=== PATIENT | female | born 1970 | race Caucasian/White ===

== ENCOUNTER → 2017-05-12 16:20 | Outpatient (CLI) | payer MEDICAID, SELFPAY ==
[2017-05-12 18:11] LABS: Absolute Lymphocyte Count 3.32 X10^3/ul (0.83-4.51); Absolute Neutrophil Count 2.8 X10^3/uL (2.0-7.7); Basophil# 0.03 X10^3/uL; Basophil% 0.4 % (0-1); Eosinophil# 0.24 X10^3/uL; Eosinophils% 3.5 % (0-5); Hemoglobin 13.5 g/dl (12.0-15.0); Lymphocyte # 3.32 X10^3/ul (4.0); Lymphocyte % 48.3 % (19-41); Mean Corp Hgb Conc 33.8 g/gl (32-36); Mean Corpuscular Hgb 30.1 pg (27.0-32.0); Mean Corpuscular Volume 89.1 fL (81-99); Mean Platelet Vol. 10.2 fl (6.2-12.0); Monocyte# 0.52 X10^3/uL; Monocyte% 7.6 % (0-10); Neutrophil # 2.75 X10^3/uL (2.7-7.7); Neutrophil % 40.1 % (47-70); POSITIVE COUNT NO; POSITIVE DIFFERENTIAL NO; POSITIVE MORPHOLOGY NO; Platelet Count 314 K/mm3 (150-450); RBC Distribution Width CV 12.8 % (11.6-14.6); RBC Distribution Width SD 41.1 fl (35.1-43.9); Red Blood Count 4.49 M/mm3 (4.2-5.4); White Blood Count 6.9 K/mm3 (4.4-11.0)
[2017-05-12 18:28] LABS: Anion Gap 8 (5-15); BUN 13 mg/dL (7-18); BUN/Creat Ratio 16.1 RATIO (10-20); Calcium,Total 9.1 mg/dL (8.5-10.1); Chloride 102 mmol/L (98-107); Creatinine, Serum 0.81 mg/dL (0.55-1.02); EST Glomerular Filtration Rate 81 mL/min (>60); Est Glom Filt Rate - Afr Amer 98 mL/min (>60); Glucose 80 mg/dL (74-106); Potassium 3.9 mmol/L (3.5-5.1); Sodium Level 137 mmol/L (136-145); T4 Free Direct 1.05 ng/dL (0.76-1.46); Thyroid Stim Hormone (TSH) 5.12 uIU/mL (0.358-3.74)
== END ==
PROVIDERS: Family Provider Family Medicine; PCP Family Medicine; Visit Provider Family Medicine
DX: E03.9 Hypothyroidism, unspecified (principal); I10 Essential (primary) hypertension; N39.0 Urinary tract infection, site not specified
CPT/HCPCS: 36415; 80048; 84439; 84443; 85025

== ENCOUNTER → 2017-06-21 14:41 | Outpatient (CLI) | payer MEDICAID, SELFPAY ==
[2017-06-21 17:25] LABS: T4 Free Direct 1.33 ng/dL (0.76-1.46); Thyroid Stim Hormone (TSH) 0.44 uIU/mL (0.358-3.74)
== END ==
PROVIDERS: Family Provider Family Medicine; PCP Family Medicine; Visit Provider Family Medicine
DX: E03.9 Hypothyroidism, unspecified (principal)
CPT/HCPCS: 36415; 84439; 84443

== ENCOUNTER → 2018-05-27 15:22 | Outpatient (CLI) | payer BC, SELFPAY ==
[2018-05-27 17:21] LABS: Absolute Lymphocyte Count 2.65 X10^3/ul (0.83-4.51); Absolute Neutrophil Count 2.7 X10^3/uL (2.0-7.7); Basophil# 0.03 X10^3/uL; Basophil% 0.5 % (0-1); Eosinophil# 0.28 X10^3/uL; Eosinophils% 4.5 % (0-5); Hematocrit 41.7 % (37-47); Hemoglobin 14.1 g/dl (12.0-15.0); Lymphocyte # 2.65 X10^3/ul (4.0); Lymphocyte % 42.9 % (19-41); Mean Corp Hgb Conc 33.8 g/gl (32-36); Mean Corpuscular Hgb 30.3 pg (27.0-32.0); Mean Corpuscular Volume 89.5 fL (81-99); Monocyte# 0.48 X10^3/uL; Monocyte% 7.8 % (0-10); Neutrophil # 2.74 X10^3/uL (2.7-7.7); Neutrophil % 44.3 % (47-70); Platelet Count 340 K/mm3 (150-450); RBC Distribution Width SD 41.7 fl (35.1-43.9); Red Blood Count 4.66 M/mm3 (4.2-5.4); White Blood Count 6.2 K/mm3 (4.4-11.0)
[2018-05-27 17:27] LABS: POSITIVE COUNT NO; POSITIVE DIFFERENTIAL NO; POSITIVE MORPHOLOGY NO
[2018-05-27 17:41] LABS: Vitamin B12 511 pg/mL (211-911); Vitamin D,25 Hydroxy 18.2 ng/mL (29.95-100.01)
[2018-05-27 17:43] LABS: ALB/GLOB Ratio 1.1 RATIO (0.9-2.4); AST(SGOT) 15 U/L (15-37); Alanine Aminotransfer ALT/SGPT 23 U/L (13-56); Albumin, Serum 3.9 g/dL (3.2-5.0); Alkaline Phosphatase 83 U/L (45-117); Anion Gap 7 (5-15); BUN 13 mg/dL (7-18); BUN/Creat Ratio 15.4 RATIO (10-20); Calcium,Total 8.9 mg/dL (8.5-10.1); Chloride 104 mmol/L (98-107); Cholesterol 189 mg/dL (200); Creatinine, Serum 0.84 mg/dL (0.55-1.02); EST Glomerular Filtration Rate 77 mL/min (>60); Est Glom Filt Rate - Afr Amer 93 mL/min (>60); Globulin 3.6 g/dL (2.2-4.2); Glucose 81 mg/dL (74-106); High Density Lipoprotein 60 mg/dL; Potassium 4.1 mmol/L (3.5-5.1); Protein, Total 7.5 g/dL (6.4-8.2); Sodium Level 139 mmol/L (136-145); T4 Free Direct 0.64 ng/dL (0.76-1.46); Triglycerides 128 mg/dL; Very Low Density Lipoprotein 26 mg/dL (5-40)
[2018-06-07 17:23] LABS: Anti-Thyroglobulin AB 2.4 IU/mL (0.0-0.9); Thyroid Peroxidase AB 307 IU/mL (0-34)
[2018-06-07 17:24] LABS: Thyroglobulin RIA 7.8 ng/mL (.)
== END ==
LOC: MFPLAB 15:24
PROVIDERS: Family Provider Family Medicine; PCP Family Medicine; Referring Provider Family Medicine; Visit Provider Family Medicine
DX: R53.83 Other fatigue (principal); E03.9 Hypothyroidism, unspecified; E66.9 Obesity, unspecified
CPT/HCPCS: 36415; 80053; 80061; 82306; 82607; 84432; 84439; 84443; 85025; 86376; 86800

== ENCOUNTER 2018-06-03 20:22 | Emergency (ER) | payer BC, SELFPAY ==
[2018-06-03 20:22] VITALS: BP 169/94; PULSE 79; RESP 16; TEMP 36.7; O2SAT 99; BMI 38.0
--- NOTE | 2018-06-03 21:37 | CT_ITS ---
We are attempting to reach Maury Vargas MD to discuss findings. An addendum with communication details will be sent when the communication is complete. STUDY: CT ABDOMEN AND PELVIS WITHOUT CONTRAST REASON FOR EXAM: Female, 47 years old. Right flank pain RADIATION DOSAGE (If Supplied By Facility): CTDIvol = ( 22.57 ) mGy, DLP = ( 1031.81 ) mGycm TECHNIQUE: Transaxial images were obtained from the dome of the diaphragm to the symphysis pubis without oral contrast, and without intravenous contrast. Sagittal and coronal images were reconstructed. Individualized dose optimization techniques were used for this CT. COMPARISON: None. FINDINGS: The visualized lung bases are unremarkable. The visualized portions of the heart are within normal limits. 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 Normal liver. There are surgical clips in the gallbladder fossa consistent with a prior cholecystectomy. Normal spleen. Normal pancreas. Normal bilateral adrenal glands. Normal right kidney. Normal left kidney. Normal visualized stomach. Normal small intestine. There is moderate stool in the colon. There is a mildly thick-walled appearance of the tip of the appendix with calcification measuring up to 7 mm There is partial calcification of the aorta. Normal inferior vena cava. Normal retroperitoneum. Normal urinary bladder. The uterus is retroflexed. There is a small umbilical hernia containing fat. There is grade 1 almost grade 2 anterolisthesis at the level of L5-S1. There is a anterolisthesis of at least 1 cm of L5 anterior to L1. There is moderate to severe neural foraminal narrowing at the level of L5-S1. There is mild central stenosis. At L4-L5 there is a broad disc bulge. CT/Abdomen/Pelvis without Cont IMPRESSION: Constipation. Upper limits of normal width of the appendix up to 7 mm with appendicoliths without minimal wall thickening. Recommend correlation with laboratory values and clinical exam. Potentially early appendicitis could have this appearance Normal size retroflexed uterus Grade 1 nearly grade 2 anterolisthesis at L5-S1 for which a follow-up is warranted. Electronically Signed: Gwen Granado MD at 23:36 EDT Tel , Service support ,
[2018-06-03] MEDS: Ondansetron 4 MG/2 ML Vial IV (22:14)
[2018-06-03 22:21] LABS: Absolute Lymphocyte Count 2.56 X10^3/ul (0.83-4.51); Absolute Neutrophil Count 3.3 X10^3/uL (2.0-7.7); Basophil# 0.03 X10^3/uL; Basophil% 0.4 % (0-1); Eosinophil# 0.21 X10^3/uL; Eosinophils% 3.1 % (0-5); Hematocrit 40.9 % (37-47); Lymphocyte # 2.56 X10^3/ul (4.0); Lymphocyte % 38.3 % (19-41); Mean Corp Hgb Conc 34.2 g/gl (32-36); Mean Corpuscular Volume 87.6 fL (81-99); Mean Platelet Vol. 9.7 fl (6.2-12.0); Monocyte# 0.56 X10^3/uL; Monocyte% 8.4 % (0-10); Neutrophil # 3.32 X10^3/uL (2.7-7.7); Neutrophil % 49.7 % (47-70); Platelet Count 317 K/mm3 (150-450); RBC Distribution Width CV 12.7 % (11.6-14.6); RBC Distribution Width SD 39.6 fl (35.1-43.9); Red Blood Count 4.67 M/mm3 (4.2-5.4); White Blood Count 6.7 K/mm3 (4.4-11.0)
[2018-06-03 22:23] LABS: Bacteria 0 SEEN /hpf (None Seen); Mucous, Urine 0 SEEN /hpf (<or=2+); Red Blood Cells-Urine 0 SEEN /hpf (0-5); Squamous Epithelial Cells - UA 0 SEEN /hpf (5-10); White Blood Cells 0 SEEN /hpf (0-5)
[2018-06-03 22:23] LABS: POSITIVE COUNT NO; POSITIVE DIFFERENTIAL NO; POSITIVE MORPHOLOGY NO
[2018-06-03 22:30] LABS: Color, Urine Yellow (Yellow); Glucose, Dipstick Normal (Normal); Ketone-Dipstick Negative (Negative); Leukocyte Esterase-Dipstick Negative /ul (Negative); Nitrite-Dipstick Negative (Negative); Occult Blood-Urine Negative /ul (Negative); Protein-Dipstick Negative (Negative); Specific Gravity, Urine 1.015 (1.002-1.030); Urine Bilirubin Dipstick Negative (Negative); Urine Clarity Clear (Clear); Urine Urobilinogen Normal (Normal)
[2018-06-03 22:36] LABS: Anion Gap 7 (5-15); BUN 10 mg/dL (7-18); Calcium,Total 8.6 mg/dL (8.5-10.1); Chloride 107 mmol/L (98-107); Creatinine, Serum 0.83 mg/dL (0.55-1.02); EST Glomerular Filtration Rate 78 mL/min (>60); Est Glom Filt Rate - Afr Amer 94 mL/min (>60); Estimated Creatinine Clearance 69.31 ml/min; Glucose 87 mg/dL (74-106); Sodium Level 141 mmol/L (136-145)
--- NOTE | 2018-06-03 22:41 | RAD_ITS ---
STUDY: X-RAY CHEST REASON FOR EXAM: Female, 47 years old. Pain posterior lower rib pain for 3 days TECHNIQUE: PA and lateral views of the chest. COMPARISON: Lung bases June 03, 2018 10:35 PM Chest x-ray January 18, 2015 FINDINGS: Again noted is a eventration or fatty herniation of the right diaphragm. There is no visualized focal consolidation or pleural effusion or visualized rib fracture. There is no demonstrated pleural abnormality. Normal size heart. Normal mediastinum and korina. Normal visualized pulmonary arteries. Normal visualized aortic arch and descending thoracic aorta. Normal visualized thoracic spine. Normal visualized ribs, clavicles, and shoulders. There are surgical clips in the right upper quadrant status post cholecystectomy. RAD/Chest PA and Lateral IMPRESSION: No demonstrated acute cardiopulmonary process. Electronically Signed: Gwen Granado MD at 22:55 EDT Tel , Service support ,
[2018-06-03 23:47] VITALS: BP 128/73; PULSE 74; RESP 19; O2SAT 99
--- NOTE | 2018-06-04 00:19 | ED.VISSUMM ---
- ER Visit Summary Date of Service: 06/04/18 Chief Complaint: Upper flank and mid back pain. History of Present Illness: The patient is a 47 F history of hypothyroidism and prior cholecystectomy. Patient states she had 3 days of right flank pain that began on Wednesday. Around the right mid back and CVA area. She is noticed some nausea associated with today mild diarrhea. No fever. No dysuria. No abdominal pain. Last menstrual period was a week ago and normal. Denies any falls or trauma. No fever. No shortness of breath. Mild nonproductive cough. Physical Examination: Middle-aged female no acute distress vital signs are stable afebrile. Pulse ox 9% on room air cells are positive. H EENT exam unremarkable. Neck nontender no lymphadenopathy. Lungs clear to auscultation bilaterally. Heart regular rhythm no murmur. Chest wall nontender. Abdomen is soft and nontender. Normal bowel sounds no peritoneal signs. Right upper quadrant completely non-tender as is the right lower quadrant. Normal bowel sounds. Patient is moving all 4 extremities. Neurovascularly intact. Negative straight leg raise bilaterally. The spine of the back is nontender she has mild reproducible right posterior rib cage tenderness. There is no ecchymosis or bruising. No redness or warmth. No signs of trauma nor bony crepitance. Neurologically she is awake alert with no focal motor deficits. Test Results: BC normal white count of 6. Electrolytes normal normal creatinine gap. UA normal. No signs of blood or infection. Chest x-ray showed no acute abnormality. There is no signs of any bony fracture pneumonia. CT abdomen and pelvis done without contrast as a CT flank study showed no acute abnormality. It was increased stool consistent with constipation. The radiologist called to talk to me and said that the appendix was the upper limits of normal but it was not significantly abnormal there is no signs of acute appendicitis I explained her there is absolutely no abdominal pain and no tenderness in that region she felt was more likely just a normal variant. Emergency Department Course and Treatment: Patient was treated with IV Zofran which helped her nausea symptoms. Repeat abdominal exam at 00 15 a.m. her abdomen is completely nontender. Both the right upper right lower quadrant completely normal deep palpation in the right lower quadrant there is no pain whatsoever. I went over all test results with the patient seen and I discussed her CAT scan results. Treatment Plan: Motrin for pain. Ice to her back. Disposition: Discharge Impression: Right flank pain secondary to muscular skeletal etiology. Appendix upper limits of normal on CAT scan clinically not felt to be appendicitis This note was generated with [employer] dictation software. It may contain incorrect words, spelling, and punctuation that were not noted in review of the chart prior to signing ED Disposition - Plan for ED Patient: Referrals: Bao Ruiz MD [Primary Care Provider] -
--- NOTE | 2018-06-04 00:23 | ED.DEP ---
ED Disposition - Plan for ED Patient: Disposition: Home or Assisted Living Instructions: ED Flank Pain Uncertain Cause Referrals: Bao Ruiz MD [Primary Care Provider] - 3-5 Days if not improving Additional Instructions: This appears to be musculoskeletal back pain. All your labs were normal including your urinalysis. Follow with your doctor if not improving. Ice to your right lower back rib cage area. Motrin for pain and inflammation. Return if feeling worse otherwise follow-up with your doctor if not improving.
[2018-06-04 00:31] VITALS: BP 148/83; PULSE 68; RESP 16; O2SAT 98
[2018-06-04] MEDS: Ondansetron ODT 4 MG Tablet PO (00:31)
== END 2018-06-04 00:35 | disposition home or self-care (01) ==
PROVIDERS: Emergency Provider Emergency Medicine; Family Provider Family Medicine; PCP Family Medicine
DX: R10.11 Right upper quadrant pain (principal); R11.0 Nausea; E03.9 Hypothyroidism, unspecified; Z90.49 Acquired absence of other specified parts of digestive tract
CPT/HCPCS: 71046; 74176; 80048; 81001; 85025; 96374; 99284; A4216; J2405

== ENCOUNTER → 2018-06-06 08:41 | Outpatient (CLI) | payer BC, SELFPAY ==
[2018-06-03 20:22] VITALS: BMI 38.0
--- NOTE | 2018-06-06 08:45 | US_ITS ---
STUDY: THYROID ULTRASOUND REASON FOR EXAM: Female, 47 years old. Thyromegaly TECHNIQUE: Ultrasound evaluation of the thyroid was performed with real-time and static yarbrough-scale imaging. COMPARISON: None. FINDINGS: RIGHT LOBE: The right lobe of the thyroid gland measures 6.9 x 3 x 3 cm. There is a heterogeneous echotexture. Multiple nodules are noted throughout the right thyroid lobe. Predominantly solid in appearance, largest is in the upper lobe measuring 1.3 x 1.6 x 1.3 cm. LEFT LOBE: The left lobe of the thyroid gland measures 3.3 x 1.4 x 1.6 cm. There is a heterogeneous echotexture. Solid nodules are noted. The largest of which is in the mid to lower pole measuring 1.9 x 1.1 x 1.3 cm. ISTHMUS: The isthmus measures 6 mm. The regional lymph nodes are normal. US/Thyroid IMPRESSION: Marked enlargement of the right thyroid lobe as compared to the left. Multiple right-sided thyroid lobe nodules. 2 smaller left-sided thyroid lobe nodules. Diffusely heterogeneous echotexture bilaterally. Electronically Signed: Nestor Epstein DO at 11:03 EDT Tel , Service support ,
== END ==
PROVIDERS: Family Provider Family Medicine; PCP Family Medicine; Referring Provider Family Medicine; Visit Provider Family Medicine
DX: E01.0 Iodine-deficiency related diffuse (endemic) goiter (principal)
CPT/HCPCS: 76536

== ENCOUNTER → 2018-06-25 08:44 | Outpatient (CLI) | payer BC, SELFPAY ==
--- NOTE | 2018-06-25 08:00 | ASPS_PTH ---
PATIENT: BRENNAN MONTEJO LOC: [facility] U#:[id number] AGE/SX: 54/F ROOM: RE06/25/[address]: Dr. Jose Sharpe MD : 1970 BED: DIS: SPEC #: [id number] RECD: 06/25/18 11:41 STATUS: ZOIE LIZY #: [id number] KANDIS: 06/25/18 08:[address]: Jose Sharpe DEPT: CYTOLOGY RECD BY: Too Coto ENTERED: 06/27/18 10:14 SP TYPE: ASPIRATION OTHR DR: Dr. Bao Ruiz MD Tissues: A - Thyroid gland, NOS B - Thyroid gland, NOS Procedures: Special Stain Group II Cytology Other HEADER OPERATION: Ultrasound guided fine needle aspiration of bilateral thyroid nodule PRE-OP DIAGNOSIS: Multinodular goiter (nontoxic) E04.2 TISSUE SUBMITTED: A. Left thyroid nodule, B. Right thyroid nodule DIAGNOSIS CYTOLOGY A. Left thyroid nodule, fine needle aspiration, direct smears: Negative for malignant cells. Consistent with lymphocytic thyroiditis. See cytology study. B. Right thyroid nodule, fine needle aspiration, direct smears: Negative for malignant cells. Consistent with lymphocytic thyroiditis. See cytology study. CE:de 06/28/18 COMMENT Immediate cytologic evaluation to determine adequacy is not applicable. Case has been reviewed in consultation with Dr. Keyes who concurs with the above diagnosis. IDC:AM CYTOLOGY STUDY A and B. Direct smears demonstrate multiple groups of follicular cells in a background of colloid and blood. The follicular cells contain abundant cytoplasm and round nuclei. No nuclear atypia is found. Additionally, a few groups of H?rthle cells and numerous inflammatory cells are present in the background. The findings described are consistent with lymphocytic thyroiditis. Also noted on the direct smears are multiple delicate blood vessels. These are lined by elongated endothelial cells without atypia. CYTOLOGY GROSS A. Received are 12 smears labeled with the patient's name and designated per the requisition as left thyroid. Submitted for staining. B. Received are 12 smears labeled with the patient's name and designated per the requisition as right thyroid. Submitted for staining. / CC:cc 06/27/18 TC:3 CPT: 95047 x2
[2018-06-25 08:04] VITALS: BMI 38.9
== END ==
PROVIDERS: Family Provider Family Medicine; PCP Family Medicine; Visit Provider Surgery
DX: E04.2 Nontoxic multinodular goiter (principal)
CPT/HCPCS: 88161; 88313

== ENCOUNTER → 2018-12-22 12:20 | Outpatient (CLI) | payer BC, SELFPAY ==
[2018-06-25 08:04] VITALS: BMI 38.9
[2018-12-22 14:46] LABS: T4 Free Direct 0.88 ng/dL (0.76-1.46)
[2018-12-22 14:49] LABS: Vitamin D,25 Hydroxy 46.9 ng/mL (29.95-100.01)
== END ==
PROVIDERS: Family Provider Family Medicine; PCP Family Medicine; Referring Provider Family Medicine; Visit Provider Family Medicine
DX: E03.8 Other specified hypothyroidism (principal); E55.9 Vitamin D deficiency, unspecified
CPT/HCPCS: 36415; 82306; 84439; 84443

== ENCOUNTER → 2019-04-11 08:48 | Outpatient (CLI) | payer BC, SELFPAY ==
[2019-03-20 07:40] VITALS: BMI 38.9
[2019-04-11 10:42] LABS: Vitamin D,25 Hydroxy 46.4 ng/mL
== END ==
LOC: MFPLAB 08:51
PROVIDERS: PCP Family Medicine; Referring Provider Family Medicine; Visit Provider Family Medicine
DX: E03.8 Other specified hypothyroidism (principal); E55.9 Vitamin D deficiency, unspecified
CPT/HCPCS: 36415; 82306; 84439; 84443

== ENCOUNTER → 2019-07-10 07:42 | Outpatient (CLI) | payer BC, SELFPAY ==
[2019-03-20 07:40] VITALS: BMI 38.9
--- NOTE | 2019-07-10 08:01 | US_ITS ---
STUDY: THYROID ULTRASOUND REASON FOR EXAM: Female, 48 years old. NODULES -- ON THYROID MEDS TECHNIQUE: Ultrasound evaluation of the thyroid was performed with real-time and static yarbrough-scale imaging. COMPARISON: Comparison is made with prior examination dated June 06, 2018. FINDINGS: RIGHT LOBE: The right lobe of the thyroid gland is enlarged and measures 6.8 cm x 3 cm x 2.9 cm. There is a heterogeneous echotexture. Once again, multiple nodules are seen. The largest measures 1.3 cm x 1.6 cm x 1.2 cm. This is in the upper lobe and is solid in nature. This is unchanged. LEFT LOBE: The left lobe of the thyroid gland measures 3.4 cm x 1.3 cm x 1.4 cm. There is a heterogeneous echotexture. 2 nodules are seen. The larger measures 1.7 cm x 0.8 cm x 0.9 cm cyst. This lies in the mid to lower pole of the lobe. This is a solid nodule. ISTHMUS: The isthmus is enlarged and measures 6 mm. The regional lymph nodes are normal. US/Thyroid IMPRESSION: Enlarged isthmus and right lobe of the thyroid with heterogeneous echotexture. Bilateral thyroid nodules. Essentially unchanged. Electronically Signed: Dariusz Guerrero, at 15:18 EDT , Service support ,
== END ==
PROVIDERS: PCP Family Medicine; Referring Provider Family Medicine; Visit Provider Family Medicine
DX: E04.2 Nontoxic multinodular goiter (principal)
CPT/HCPCS: 76536

== ENCOUNTER 2019-07-16 02:16 | Emergency (ER) | payer BC, SELFPAY ==
[2019-03-20 07:40] VITALS: BMI 38.9
[2019-07-16 02:17] VITALS: BP 146/92; PULSE 84; RESP 18; TEMP 36.8; O2SAT 97; BMI 38.9
--- NOTE | 2019-07-16 02:54 | RAD_ITS ---
STUDY: X-RAY - LEFT ELBOW REASON FOR EXAM: Female, 48 years old. TRIED TO LIFT A RAILROAD TIE YESTERDAY -- FELT SOMETHING TEAR AREA OF ANTERIOR PROXIMAL LT FOREARM -- C/O SEVERE PAIN IN LT ELBOW TECHNIQUE: 3 view(s) of the elbow. COMPARISON: None. FINDINGS: Normal visualized humerus, radius and ulna. Small enthesophyte along the lateral femoral condyle. Normal radiocapitellar and ulnotrochlear articulations. The soft tissue structures are unremarkable. RAD/Elbow min 3 Views IMPRESSION: Minimal degenerative changes along the lateral humeral condyle can be seen with epicondylitis. There is no acute displaced fracture or dislocation. Electronically Signed: Gloria Mathew MD at 3:44 EDT , Service support ,
--- NOTE | 2019-07-16 02:58 | ED.VIS.UPPEX ---
History of Present Illness Chief Complaint: Upper Extremity Injury Informant: Patient Occurred: Yesterday Mechanism/Context: Injury - lifting Context: Sudden Onset Timing: Continuous Quality of Pain: Aching - felt like tearing in muscle in left forearm Location: left volar proximal forearm Current Severity: Moderate Maximum Severity: Severe Worsened by: movements, especially pronation Relieved by: remaining still Associated Symptoms: Parasthesia - fingers 2-4. Negative for: Weakness, Loss of Funtion Narrative: Patient states she was mowing the yard, she stopped to move the railroad tie that was in the way, and felt tearing all of a sudden in her left forearm. She has had pain ever since. She is left-hand dominant. She works in a factory. - Past Medical History (1) Depression with anxiety Status: Chronic (2) Hypothyroidism Status: Chronic Past Medical History - Allergies and Home Meds Allergies/Adverse Reactions: Allergies escitalopram [From Lexapro] Allergy (Intermediate, Verified 03/20/19 07:30) twitching/nervous feeling Primary Care Physician: Bao Ruiz MD [Primary Care Provider] - Surgical History: cholecystectomy, tonsillectomy Smoking Status: Never smoker - Family History Maternal Family History: Family History (Last Reviewed 07/01/18 @ 07:34 by Eli Yates) Grandmother Cancer Heart disease Thyroid disorder Grandfather Cancer Mother Heart disease Thyroid disorder Family History: Reports: Heart Disease Review of Systems Musculoskeletal: Reports: Extremity Pain. Denies: Neck pain, Back pain, Swelling Skin: Denies: Rash, Wounds Neurological: Reports: Parasthesia. Denies: Headache, Weakness Physical Exam Vital Signs/Narrative: Vital Signs Temp Pulse Resp BP Pulse Ox 07/16/19 02:17 98.3 F 84 18 146/92 H 97 General: Well nourished, Well developed, - - nad Head: Normocephalic, Atraumatic Extremeties: Full range of motion of the left elbow, wrist including pronation and supination although she has pain with multiple maneuvers especially stretching the volar flexor muscle compartment by extending at the wrist. All compartments are soft and nondistended. There are no obvious deformities. Tenderness just distal to the medial epicondyles as well as the antecubital fossa. Skin: Normal color, No rash, No Trauma Neurological: Alert, Oriented x3, Cranial nerves II-XII grossly intact, Normal Strength - Including left median, radial, ulnar nerve distributions, Parasthesia - Mild, fingertips left 2-4 only Psychological: Normal affect, Normal Mood Diagnostic/Tx/Re-eval Clinical Impression(s) from Imaging Studies Elbow X-Ray 07/16/19 02:54 IMPRESSION: Minimal degenerative changes along the lateral humeral condyle can be seen with epicondylitis. There is no acute displaced fracture or dislocation. Electronically Signed: Gloria Mathew MD at 3:44 EDT , Service support , - Medical Decision Making X-ray findings as above, nothing acute. Patient felt that she would feel much better and splint than a sling. Given that the suspicion is for a tear in the volar forearm musculature, we initially try just an ulnar gutter because supination/pronation is the most painful movement for her. This resulted in acceptable immobilization and it helped her feel better, and was not too much weight so she did not feel she needed a sling. She was given Ultram and naproxen, and referred to orthopedics for further evaluation. She is comfortable with that plan. She was given a work note for Wednesday. Procedures - Upper Extremity Splints Upper Extremity Splint: Orthoglass, Ulnar gutter Splint Fabrication: Fabricated - Neurovascularly intact distally after placement. Tolerated well. Location: Left ED Disposition - Plan for ED Patient: Disposition: Home or Assisted Living Diagnosis: Injury of muscle or tendon of left forearm Instructions: ED Strain Muscle Ext Prescriptions: traMADol [Ultram] 50 mg PO Q4H PRN PRN 3 Days #12 tab PRN Reason: Pain Prescription Printed Referrals: Bao Ruiz MD [Primary Care Provider] - Yandy Gonsalves DO [STAFF PHYSICIAN] - As soon as possible (call for appt)
[2019-07-16] MEDS: Naproxen 250 MG Tablet 500 MG PO (03:24)
[2019-07-16] MEDS: traMADol 50 MG Tablet PO (03:24)
[2019-07-16 04:00] VITALS: PULSE 65; RESP 18; O2SAT 97
== END 2019-07-16 04:04 | disposition home or self-care (01) ==
LOC: ED 03:54
PROVIDERS: Emergency Provider Emergency Medicine; PCP Family Medicine
DX: S56.912A Strain of unspecified muscles, fascia and tendons at forearm level, left arm, initial encounter (principal); M77.12 Lateral epicondylitis, left elbow; X50.0XXA Overexertion from strenuous movement or load, initial encounter; Y93.9 Activity, unspecified; Y92.9 Unspecified place or not applicable; F41.8 Other specified anxiety disorders; E03.9 Hypothyroidism, unspecified; Z79.899 Other long term (current) drug therapy
CPT/HCPCS: 29125; 73080; 99283

== ENCOUNTER → 2019-07-27 08:43 | Outpatient (CLI) | payer BC, SELFPAY ==
[2019-07-27 08:27] VITALS: BMI 38.9
--- NOTE | 2019-07-27 08:43 | RAD_ITS ---
STUDY: X-RAY - LEFT RADIUS AND ULNA REASON FOR EXAM: Female, 48 years old. STRAIN TO ARM. PAIN PROXIMAL FOREARM TECHNIQUE: 2 view(s) of the forearm. COMPARISON: None. FINDINGS: There is no demonstrated soft tissue swelling. Normal visualized radius. Normal visualized ulna. There is no demonstrated acute fracture. RAD/Forearm 2 Views IMPRESSION: Normal x-ray examination of the radius and ulna. Electronically Signed: Hema Perez MD at 17:30 EDT , Service support ,
== END ==
PROVIDERS: PCP Family Medicine; Referring Provider Physician Assistant; Visit Provider Physician Assistant
DX: M79.632 Pain in left forearm (principal)
CPT/HCPCS: 73090

== ENCOUNTER → 2019-07-29 07:04 | Outpatient (CLI) | payer BC, SELFPAY ==
[2019-07-27 08:27] VITALS: BMI 38.9
--- NOTE | 2019-07-29 07:05 | MRI_ITS ---
STUDY: MRI LEFT ELBOW REASON FOR EXAM: Female, 48 years old. left elbow , distal biceps tear; pain after lifting heavy object 2 wks ago, and felt tear TECHNIQUE: Standardized fat and water weighted pulse sequences were obtained in all 3 orthogonal planes. COMPARISON: X-ray July 16, 2019 FINDINGS: Normal radio-capitellum articulation. Normal radial collateral ligamentous complex. There is a tendinosis of the common extensor tendon origin with a partial deep surface tear, series 6 image 01/29. Normal ulnotrochlear articulation. Normal ulnar collateral ligamentous complex. Normal common flexor tendon. Small joint effusion. The cubital tunnel is normal, with a normal ulnar nerve. There is tendinosis with a complete tear of distal insertion of the biceps tendon with retraction of 1.1 cm, series 6 images 15 and 16. Normal lacertus fibrosis. Normal brachialis musculotendinous insertion. Normal triceps tendon and teno-osseous insertion. Normal olecranon process. The visualized distal humerus, proximal radius, and ulna are normal. The visualized muscles of the distal arm and proximal forearm are normal. The soft tissue structures are unremarkable. MRI/Upper Ext Joint Only(Routine) IMPRESSION: Biceps tendon rupture and tear. Tendinosis with partial tear of the common extensor tendon. Joint effusion. Electronically Signed: Pietro Stevens MD at 15:39 EDT , Service support ,
== END ==
LOC: MRI 07:05
PROVIDERS: PCP Family Medicine; Referring Provider Physician Assistant; Visit Provider Physician Assistant
DX: S46.219A Strain of muscle, fascia and tendon of other parts of biceps, unspecified arm, initial encounter (principal)
CPT/HCPCS: 73221

== ENCOUNTER → 2019-10-19 08:10 | Outpatient (CLI) | payer BC, SELFPAY ==
[2019-07-27 08:27] VITALS: BMI 38.9
[2019-10-19 10:09] LABS: Vitamin D,25 Hydroxy 37.2 ng/mL
== END ==
PROVIDERS: PCP Family Medicine; Referring Provider Family Medicine; Visit Provider Family Medicine
DX: E55.9 Vitamin D deficiency, unspecified (principal); E03.8 Other specified hypothyroidism
CPT/HCPCS: 36415; 82306; 84439; 84443

== ENCOUNTER → 2020-01-09 08:08 | Outpatient (CLI) | payer BC, SELFPAY ==
[2019-07-27 08:27] VITALS: BMI 38.9
[2020-01-09 10:21] LABS: T4 Free Direct 1.11 ng/dL (0.76-1.46); Thyroid Stim Hormone (TSH) 4.93 uIU/mL (0.358-3.74)
== END ==
PROVIDERS: PCP Family Medicine; Visit Provider Family Medicine
DX: E03.8 Other specified hypothyroidism (principal)
CPT/HCPCS: 36415; 84439; 84443

== ENCOUNTER → 2020-03-01 11:23 | Outpatient (CLI) | payer BC, SELFPAY ==
[2019-07-27 08:27] VITALS: BMI 38.9
--- NOTE | 2020-03-01 11:25 | RAD_ITS ---
STUDY: X-RAY - LEFT HAND REASON FOR EXAM: Female, 49 years old. Left hand pain, from wrist up into the thumb x 2 months -- no injury TECHNIQUE: 3 view(s) of the hand. COMPARISON: None. FINDINGS: Normal radiocarpal articulation. Normal distal radioulnar joint. Normal visualized carpal bones. Normal carpal articulations Normal carpometacarpal articulation of the thumb. Normal second through fifth carpometacarpal joints. Normal metacarpi. Normal metacarpophalangeal joint of the thumb. Normal interphalangeal joint of the thumb. Normal proximal and distal phalanges of the thumb. Normal metacarpophalangeal joints of the second through fifth fingers. Normal proximal and distal interphalangeal joints of the second through fifth fingers. Normal phalanges of the second through fifth fingers. The soft tissue structures are unremarkable. RAD/Hand Min 3 Views IMPRESSION: Normal x-ray examination of the hand. Electronically Signed: Dariusz Guerrero MD at 12:32 EST , Service support ,
== END ==
LOC: MTRAD 11:24
PROVIDERS: PCP Family Medicine; Referring Provider Family Medicine; Visit Provider Family Medicine
DX: M79.645 Pain in left finger(s) (principal)
CPT/HCPCS: 73130

== ENCOUNTER → 2020-07-11 11:41 | Outpatient (CLI) | payer BC, SELFPAY ==
[2019-07-27 08:27] VITALS: BMI 38.9
[2020-07-11 15:18] LABS: Vitamin D,25 Hydroxy 53.7 ng/mL
[2020-07-11 15:26] LABS: ALB/GLOB Ratio 0.9 RATIO (0.9-2.4); AST(SGOT) 17 U/L (15-37); Alanine Aminotransfer ALT/SGPT 31 U/L (13-56); Albumin, Serum 3.8 g/dL (3.2-5.0); Alkaline Phosphatase 103 U/L (45-117); Anion Gap 7 (5-15); BUN 15 mg/dL (7-18); BUN/Creat Ratio 20.2 RATIO (10-20); Chloride 103 mmol/L (98-107); Creatinine, Serum 0.74 mg/dL (0.55-1.02); EST Glomerular Filtration Rate 88 mL/min (>60); Est Glom Filt Rate - Afr Amer 107 mL/min (>60); Globulin 4.4 g/dL (2.2-4.2); Glucose 76 mg/dL (74-106); Potassium 3.9 mmol/L (3.5-5.1); Protein, Total 8.2 g/dL (6.4-8.2); Sodium Level 136 mmol/L (136-145)
== END ==
LOC: MFPLAB 11:42
PROVIDERS: PCP Family Medicine; Referring Provider Family Medicine; Visit Provider Family Medicine
DX: E55.9 Vitamin D deficiency, unspecified (principal)
CPT/HCPCS: 36415; 80053; 82306

== ENCOUNTER 2021-04-28 12:09 | Emergency (ER) | payer BC, SELFPAY ==
[2021-04-28 12:10] VITALS: BP 150/82; PULSE 80; RESP 16; TEMP 36.6; O2SAT 96; BMI 37.0
--- NOTE | 2021-04-28 13:19 | VDLE_ITS ---
Reason For Study: Pain Procedure LEFT This is a venous duplex using B-mode, color GSV is normal. flow and spectral Doppler. CFV is compressible, spontaneous, phasic, Exam performed portable in ED. competent, and demonstrates normal A preliminary report was called and/or faxed augmentation. to Dr. Mendoza. FV is compressible, spontaneous, phasic, competent and demonstrates normal augmentation. POP V is compressible, spontaneous, phasic, competent and demonstrates normal augmentation. T/P Trunk is compressible. PTV is compressible. LT PerV is compressible. VL/Venous Duplex US, Unilateral Interpretation Summary Deep veins of the left lower extremity are patent and compressible segmentally. There is no evidence of left lower extremity deep vein thrombosis. Valvular competence appears intac t within the proximal deep venous system on the left . The left great saphenous vein appears patent a nd compressible segmentally. Ordering Physician: Mir Mendoza Performed By: Kim Turner, RDCS, RVT
--- NOTE | 2021-04-28 13:20 | ED.VIS.LOWEX ---
HPI History of Present Illness Chief Complaint: Lower Extremity Injury Detail of Chief Complaint: Pain left popliteal fossa now red streak medial left thigh Informant: patient Occured/Mechanism Comment: Atraumatic Onset/Context/Timing Onset: Yesterday (Pain started yesterday, red streak noted this morning) Context: Sudden Onset Timing: Continuous Quality of Pain: Aching Location: Popliteal fossa Current Severity: Mild Maximum Severity: Moderate Worsened by: Walking and palpation Relieved by: Nothing Associated Symptoms Associated Symptoms: Negative for Parasthesia, Weakness and Loss of Funtion Narrative Narrative: Patient is a 50-year-old woman who presents with atraumatic left leg pain. She initially had pain in the popliteal fossa. This morning she noted a red streak medial left thigh. She complained of chills 2 days ago. She denies fever. There is no history of trauma. There is no history of PE or DVT. There is no history of immobilization, recent surgery or active cancer. She denies paresthesia, anesthesia motors. She denies symptoms of claudication. She denies history of prior knee injury or Claire's cyst. Tetanus Immunization: 5-10 years Prior similar symptoms: No Recent Illness/Hospitalization: No PFSH PFS Medical History Depression with anxiety Hx of migraines Hypothyroidism Lymphocytic thyroiditis (~06/25/18) Multinodular goiter Obesity Thyromegaly Vitamin D deficiency Home Medications sertraline 50 mg PO DAILY 06/03/18 [History Last Taken Unknown] multivitamin 1 cap PO DAILY 06/13/18 [History Last Taken Unknown] cephalexin 500 mg PO Q6 #28 capsule 04/28/21 [Rx Last Taken Unknown] thyroid (pork) [[place] Thyroid] 180 mg PO DAILY 04/28/21 [History Last Taken Unknown] Allergy/AdvReac Type Severity Reaction Status Date / Time escitalopram [From Lexapro] Allergy Intermediate twitching/nervous Verified 04/28/21 12:12 feeling propranolol AdvReac Nausea Verified 04/28/21 12:12 Family History Grandmother Cancer Throat cancer Heart disease Thyroid disorder Grandfather Cancer Lung cancer Mother Heart disease Thyroid disorder Myocardial infarction Surgical History History of laparoscopic cholecystectomy History of tonsillectomy History of tubal ligation history ORIF right ankle S/P fine needle aspiration (~06/25/18) Social History (Updated 07/27/19 @ 12:38 by Vijay GIMENEZ, AMMY) Smoking Status: Never smoker alcohol intake: current alcohol intake frequency: a few times a month substance use type: does not use ROS ROS ED Constitutional Constitutional ED: Reports chills; Denies fever(s), subjective, sweats or weight loss Cardiovascular Cardiovascular: Denies chest pain, palpitations or racing heartbeat Respiratory/Chest Respiratory/Chest: Denies cough, dyspnea or dyspnea on exertion Gastrointestinal Gastrointestinal: Denies diarrhea, nausea or vomiting Musculoskeletal Musculoskeletal: Denies arthralgias, back pain, myalgias or neck pain Integumentary Reports rash; Denies abscess or Abrasions Neurologic Neurologic: Denies paresthesias or weakness Hematologic/Lymphatic Hematologic/Lymphatic: Denies easy bleeding or easy bruising EXAM Physical Exam Const Vital Signs: 04/28/21 12:10 Temperature 97.9 F Temperature Source Temporal Pulse Rate 80 Respiratory Rate 16 Blood Pressure 150/82 H Blood Pressure Mean 104 Pulse Ox 96 Oxygen Delivery Method Room Air Positive well nourished, well developed and obese General Appearance ED: well developed and NAD Nutritional Appearance: obese HEENT normocephalic and atraumatic Eyes PERRL Eyes Narrative: Extract muscle intact. Sclerae anicteric. Neck full ROM Resp normal respiratory effort and clear to auscultation bilaterally Cardio regular rate, regular rhythm, S1 normal heart sound, S2 normal heart sound and no murmurs GI non-tender and non-distended Auscultation: normoactive bowel sounds Palpation: soft Extremity full ROM; Negative for normal to inspection Extremity Narrative: There is pain to palpation popliteal fossa and question of a palpable cord. There is redness noted medial aspect of the left thigh. There is no tenderness over the redness. There is no inguinal lymphadenopathy. There is no evidence of cellulitis or trauma. DP and PT pulse are 2+ and symmetric. General Extremety ED: Negative for cyanosis, edema or weight-bearing difficulty General Extremity: Negative for cyanosis, edema or weight-bearing difficulty Psych mental status grossly normal Skin no wounds Lesions: no lesions Rashes: No no rashes Trauma: Negative for abrasion MDM MDM MDM Narrative Medical decision making narrative: This may represent a Claire's cyst versus DVT versus superficial phlebitis. Venous duplex study was obtained. No evidence of DVT or superficial thrombophlebitis. With patient complaining of chills and having a lymphangitic streak most likely will treat with cephalexin since she has no allergies to penicillin or cephalosporin. Treatment and Re-Evaluation Narrative: There is no evidence of DVT, superficial thrombophlebitis or Claire's cyst. Discharge Plan Triage Chief Complaint: Lower Extremity Injury ED Provider: Mir Mendoza Dx/Rx/DC Orders Clinical Impression: Lymphangitis of lower extremity Instructions: ED Lymphangitis Prescriptions: New cephalexin [cephalexin] 500 MG capsule 500 mg PO Q6 Qty: 28 RF: 0 No Action multivitamin capsule capsule 1 cap PO DAILY RF: 0 sertraline 25 MG tablet 50 mg PO DAILY RF: 0 Beaufort Thyroid 180 mg tablet 180 mg PO DAILY RF: 0 Primary Care Provider: Care Physician,No Primary Referrals: Holden Jain MD [STAFF PHYSICIAN] - 3-5 Days Care Physician,No Primary [Primary Care Provider] - Activity Restrictions/Additional Instructions: If you develop temperature greater 100, shaking chills or the red streak becomes worse do not hesitate to return otherwise follow-up with Dr. Hernandez. Take antibiotics until gone. Disposition Disposition: Home, Self Care
[2021-04-28] MEDS: Cephalexin 250 MG Capsule 500 MG PO (14:33)
[2021-04-28 14:38] VITALS: BP 135/79; PULSE 69; RESP 15; O2SAT 99
== END 2021-04-28 14:39 | disposition home or self-care (01) ==
PROVIDERS: Emergency Provider Emergency Medicine; Visit Provider Emergency Medicine
DX: I89.1 Lymphangitis (principal); E66.9 Obesity, unspecified; F32.A Depression, unspecified; F41.9 Anxiety disorder, unspecified; E03.9 Hypothyroidism, unspecified; Z79.899 Other long term (current) drug therapy
CPT/HCPCS: 93971; 99283

== ENCOUNTER → 2021-05-30 | Outpatient (CLI) | payer BC, SELFPAY ==
--- NOTE | 2021-05-30 14:27 | BI_ITS ---
MAMMOGRAPHY - BILATERAL SCREENING 3-D TOMOSYNTHESIS REASON FOR EXAM: Female, 50 years old. SCREENING PERTINENT HISTORY: No significant family history. TECHNIQUE: 2-D mammograms and 3-D Tomosynthesis of the breast (s) were performed. CAD was performed. COMPARISON: 05/20/2018 FINDINGS: The breast composition is composed of scattered fibroglandular density. Scattered benign calcifications are seen. No dense spiculated masses or suspicious microcalcifications are identified. No architectural distortion is identified. There is no skin thickening or retraction. There has been no significant change since the prior study. BI/SCRN MAMM (CAD)W/VIKAS BILAT IMPRESSION: No mammographic signs of malignancy. Routine yearly mammograms recommended. ASSESSMENT CATEGORY: BIRADS Category 1: Negative. A letter regarding these results will be sent to the patient by the facility within 30 days. FOLLOW UP RECOMMENDATION: Yearly follow up mammogram recommended. (A) Approximately 10% of breast cancers are not detected by mammography. A normal mammogram should not delay biopsy of a clinically suspicious abnormality. Electronically Signed: Abdias Dinero MD at 8:31 EDT ,
== END | disposition home or self-care (01) ==
PROVIDERS: PCP Nurse Practitioner Family; Referring Provider Nurse Practitioner Family; Visit Provider Nurse Practitioner Family
DX: Z12.31 Encounter for screening mammogram for malignant neoplasm of breast (principal)
CPT/HCPCS: 77063; 77067

== ENCOUNTER → 2021-08-14 | Outpatient (CLI) | payer BC, SELFPAY ==
--- NOTE | 2021-08-13 09:00 | FLU_PTH ---
PATIENT: BRENNAN MONTEJO LOC: [facility] U#:[id number] AGE/SX: 50/F ROOM: RE08/14/[address]: Dr. Ivan Horta MD : 1970 BED: DIS: 08/14/2021 SPEC #: [id number] RECD: 08/14/21 12:08 STATUS: ZOIE LIZY #: [id number] KANDIS: 08/13/21 09:[address]: Ivan Horta DEPT: CYTOLOGY RECD BY: Elaine Degroot ENTERED: 08/14/21 13:54 SP TYPE: Fluid OTHR DR: Abdias Kimbrough, FAMILY DEVELOPMENT SPECIALIST-C Tissues: A - Thyroid gland, NOS B - Thyroid gland, NOS Procedures: Special Stain Group II Surgery Specimen Level IV Cytospin Fluid Cytology Other HEADER OPERATION: Left thyroid nodule fine needle aspiration PRE-OP DIAGNOSIS: Left thyroid nodule TISSUE SUBMITTED: A - Left thyroid nodule fluid, B - Left thyroid nodule x4 slides DIAGNOSIS CYTOLOGY A. Left thyroid nodule fluid, fine needle aspiration (cytospin and cell block): Negative for malignant cells. See comment. B. Left thyroid nodule, fine needle aspiration (smears): The specimen is nondiagnostic due to lack of adequate number of follicular cells. See comment. MICHAELA:de 08/15/2021 COMMENT A & B. Rare benign follicular cells are noted. Correlation with clinical, radiologic findings and appropriate follow up are necessary. Please make reference to previous specimen ([id number]) left thyroid nodule, FNA with diagnosis of ?consistent with lymphocytic thyroiditis? and right thyroid nodule, FNA with diagnosis of ?consistent with lymphocytic thyroiditis.? CYTOLOGY STUDY Slides are reviewed. CYTOLOGY GROSS A. Received is 30 ml of red cloudy fluid labeled with the patient's name and and designated per the requisition as left thyroid nodule. Submitted for cytology preparation including cell block. B - Received are four smears labeled with the patient's name and designated per the requisition as left thyroid nodule. Submitted for staining. / de 08/13/2021 TC: Cannot code CPT: 92801 x2, 86920
== END | disposition home or self-care (01) ==
LOC: LABSPEC 13:32
PROVIDERS: PCP Nurse Practitioner Family; Visit Provider Surgery
DX: E04.1 Nontoxic single thyroid nodule (principal)
CPT/HCPCS: 88108; 88161; 88305; 88313

== ENCOUNTER 2021-12-25 05:34 | Emergency (ER) | payer OTHER, SELFPAY ==
[2021-12-25 05:35] VITALS: BP 134/86; PULSE 90; RESP 15; TEMP 37.3; O2SAT 99; BMI 37.4
[2021-12-25] MEDS: Ibuprofen 600 MG Tablet PO (06:12)
[2021-12-25] MEDS: dexAMETHasone 10 MG/ML Vial PO.IVFORM (06:12)
--- NOTE | 2021-12-25 07:04 | EX.ED.VIS.UR ---
HPI HPI - URI History of Present Illness Chief Complaint: Sore Throat Informant: patient Narrative Narrative: Patient is a 51-year-old female presenting with sore throat. Patient's 3 grandchildren recently had strep throat and she is worried she has it. She notes that she had a tonsillectomy and adenoidectomy as a child. Has some associated ear pain, aches and chills and a hoarse voice. Symptoms been going on for the past 4 days. Has tried multiple [id number] medications including Mucinex and Tylenol Cold and flu with no relief. No other complaints at this time. ROS ROS ED Constitutional Constitutional ED: Reports chills; Denies fever(s) Eyes Eyes: Denies change in vision ENT ENT ED: Reports ear pain and sore throat; Denies rhinorrhea Cardiovascular Cardiovascular: Denies chest pain or palpitations Respiratory/Chest Respiratory/Chest: Denies cough Gastrointestinal Gastrointestinal: Denies abdominal pain, nausea or vomiting Genitourinary Genitourinary ED: Denies dysuria Musculoskeletal Musculoskeletal: Reports myalgias; Denies arthralgias, back pain or neck pain Integumentary Denies rash Neurologic Neurologic: Reports headache(s); Denies weakness Psychiatric Psychiatric: Denies anxiety PFSH PFSH Medical History Allergies Arthritis Back problem Carpal tunnel syndrome Depression with anxiety Frequent headaches Goiter Hearing problem Heart valve problem History of gallstones Hx of migraines Hypothyroidism Lymphocytic thyroiditis (~06/25/18) Multinodular goiter Obesity Thyroid disease Thyroid nodule Thyromegaly Vitamin D deficiency Home Medications multivitamin 1 cap PO DAILY 06/13/18 [History Last Taken Unknown] sertraline 50 mg tablet 50 mg PO DAILY 07/29/21 [History Last Taken Unknown] thyroid (pork) 180 mg tablet ([place]rumright Thyroid) 120 mg PO DAILY 07/29/21 [History Last Taken Unknown] ibuprofen 600 mg tablet 600 mg PO Q6H PRN fever or pain #20 tabs 12/25/21 [Rx Last Taken Unknown] Allergy/AdvReac Type Severity Reaction Status Date / Time escitalopram [From Lexapro] Allergy Intermediate twitching/nervous Verified 12/25/21 05:39 feeling propranolol AdvReac Nausea Verified 12/25/21 05:39 Family History Grandmother Cancer Throat cancer Heart disease Thyroid disorder Grandfather Cancer Lung cancer Stomach cancer Mother Heart disease Thyroid disorder Myocardial infarction Hypertension Father Diabetes High cholesterol Other Alcohol abuse Surgical History History of laparoscopic cholecystectomy History of tonsillectomy History of tubal ligation history ORIF right ankle S/P fine needle aspiration (~06/25/18) Social History Smoking Status: Never smoker alcohol intake: current alcohol intake frequency: 0-2 drinks per day substance use type: does not use EXAM Physical Exam Const Vital Signs: 12/25/21 05:35 Temperature 99.1 F Temperature Source Oral Pulse Rate 90 Respiratory Rate 15 Blood Pressure 134/86 H Blood Pressure Mean 102 Pulse Ox 99 Oxygen Delivery Method Room Air Positive well nourished and well developed General Appearance ED: well developed and NAD HEENT Reports moist mucous membranes HEENT Narrative: Normal tympanic membranes bilaterally normocephalic Face and Sinus: Negative for sinus tenderness Throat: posterior oropharynx abnormal Positive for erythema and exudates Eyes PERRL and EOMs intact bilaterally Neck no lymphadenopathy, supple and no meningeal signs Resp normal respiratory effort and clear to auscultation bilaterally Cardio no murmurs Rate: regular rate Rhythm: regular rhythm GI non-tender and non-distended Extremity normal to inspection and full ROM Neuro oriented x3 Sensorium / Orientation: alert Motor Exam: Negative for general weakness Psych mental status grossly normal Skin Lesions: no lesions Rashes: no rashes MDM MDM MDM Narrative Medical decision making narrative: Patient evaluated for 4 days of sore throat, chills, body aches and hoarse voice. Strep swab is negative. Patient does have an exudative pharyngitis. Is given a dose of Decadron in the ER. Likely this is viral. COVID/flu are negative. Patient's vital signs are normal. Is given a dose of ibuprofen in the ER as well. Is given a work note for today. Will be discharged home with a prescription for Motrin 600 mg. Counseled that this course generally self-limiting. Given return precautions. No signs of abscess at this time. Lab Data Attestation: I reviewed the patient's lab results. Discharge Plan Triage Chief Complaint: Sore Throat ED Provider: Julia Donovan Dx/Rx/DC Orders Clinical Impression: Acute viral pharyngitis Instructions: ED Pharyngitis, Viral Prescriptions: New ibuprofen 600 mg tablet 600 mg PO Q6H PRN (Reason: fever or pain) Qty: 20 0RF No Action multivitamin capsule capsule 1 cap PO DAILY sertraline 50 mg tablet 50 mg PO DAILY Label Comments: TAKE 1 TABLET BY MOUTH AT THE SAME TIME ONCE DAILY Drumright Thyroid 180 mg tablet 120 mg PO DAILY Label Comments: TAKE 1 TABLET BY MOUTH ONCE DAILY IN THE MORNING. WAIT 30 MINUTES TO 1 HOUR BEFORE EATING OR DRINKING ANYTHING OTHER THAN WATER Stand Alone Forms: ED Work / School Excuse Primary Care Provider: Abdias Kimbrough NP Referrals: Abdias Kimbrough NP, ENVIRONMENTAL ASSOCIATE-C [Primary Care Provider] - Disposition Disposition: Home, Self Care
== END 2021-12-25 07:16 | disposition home or self-care (01) ==
PROVIDERS: Emergency Provider Emergency Medicine; PCP Nurse Practitioner Family; Visit Provider Emergency Medicine
DX: J02.8 Acute pharyngitis due to other specified organisms (principal); B97.89 Other viral agents as the cause of diseases classified elsewhere; Z79.899 Other long term (current) drug therapy
CPT/HCPCS: 87077; 87428; 87880; 99283

== ENCOUNTER → 2022-03-03 | Outpatient (CLI) | payer OTHER, SELFPAY ==
--- NOTE | 2022-03-03 15:52 | US_ITS ---
STUDY: THYROID ULTRASOUND REASON FOR EXAM: Female, 51 years old. Follow-up thyroid nodule. TECHNIQUE: Ultrasound evaluation of the thyroid was performed with real-time and static yarbrough-scale imaging. COMPARISON: July 10, 2019 and June 06, 2018. FINDINGS: RIGHT LOBE: The right lobe of the thyroid gland measures 6.2 x 2.5 x 2.4 cm. There is a heterogeneous echotexture. In the mid thyroid there is a hyperechoic focus measuring 0.9 x 0.6 x 1.0 cm which may represent a mass or a lobule of thyroid tissue similar to that surrounding it. A similar hyperechoic focus measuring 0.7 x 0.9 x 0.6 cm is seen in the lower pole. This is taller than it is wide. Normal vascularity and Doppler imaging. LEFT LOBE: The left lobe of the thyroid gland measures 3.0 x 1.2 x 1.5 cm. There is a heterogeneous echotexture. There are no demonstrated solid, cystic or complex lesions. Normal vascularity on Doppler imaging. ISTHMUS: The isthmus measures 0.7 cm. There is a 0.9 x 0.7 x 0.4 cm lymph node adjacent to the left thyroid. US/Thyroid IMPRESSION: Enlarged right thyroid with markedly heterogenous echotexture. There are 2 focal area os of hyper/isoechoic density which may represent separate nodules or simply foci of abnormal tissue. Both would be considered moderately suspicious, TR 4 by TI-RADS categorization but require no FNA or follow-up due to their small size. Electronically Signed: Tyree Eaton DO at 17:36 EST ,
== END | disposition home or self-care (01) ==
LOC: US 15:51
PROVIDERS: PCP Nurse Practitioner Family; Referring Provider Surgery; Visit Provider Surgery
DX: E01.0 Iodine-deficiency related diffuse (endemic) goiter (principal); E06.3 Autoimmune thyroiditis
CPT/HCPCS: 76536

== ENCOUNTER → 2022-08-26 | Outpatient (CLI) | payer OTHER, SELFPAY ==
--- NOTE | 2022-08-26 14:24 | US_ITS ---
INDICATION: Thyromegaly, hypothyroidism, thyroid nodule EXAMINATION: Ultrasound US Thyroid (eg thyroid, parathyroid, parotid) TECHNIQUE: Avalos scale and color doppler imaging was performed of the thyroid gland. COMPARISON: March 03, 2022., July 10, 2019 June 06, 2018 FINDINGS: RIGHT THYROID LOBE: 6.3 x 2.6 x 2.7 cm. Extremely heterogeneous echotexture with normal vascularity. [ Nodules: 1. Mid thyroid 1.2 x 1.0 x 0.7 cm solid hyperechoic nodule or pseudonodule, wider than tall with smooth margins and no calcifications, TI RADS 3, unchanged from prior exam when measured similarly 2. Inferior thyroid 0.9 x 0.7 x 0.6 cm solid hyperechoic nodule or pseudonodule, taller than wide with smooth margins and no calcifications, TI RADS 4, unchanged from June 06, 2018 LEFT THYROID LOBE: 3.2 x 1.3 x 1.5 cm. Extremely heterogeneous echotexture with normal vascularity. [No distinct nodules are appreciated. ISTHMUS: 0.5 cm . No thyroid nodules are present. 1.1 x 1.9 x 0.7 cm lymph nodes. Left thyroid with symmetric cortex and preserved fatty hilum. US/Thyroid IMPRESSION: Thyromegaly with markedly heterogeneous echotexture. No significant change in hyperechoic nodules or pseudonodules compared with from prior ultrasound. No specific imaging follow-up is recommended per ACR TI RADS criteria. Lymph node superior to the left thyroid without suspicious features. Electronically Signed: Vijay Jacob MD at 15:18 EDT ,
== END | disposition home or self-care (01) ==
LOC: US 14:23
PROVIDERS: PCP Nurse Practitioner Women's Health; Referring Provider Surgery; Visit Provider Surgery
DX: E04.1 Nontoxic single thyroid nodule (principal)
CPT/HCPCS: 76536

== ENCOUNTER 2024-09-22 11:54 | Inpatient (IN) | payer OTHER, SELFPAY ==
[2024-09-22 11:56] VITALS: BP 154/85; PULSE 115; RESP 20; TEMP 36.7; O2SAT 100; BMI 37.3
--- NOTE | 2024-09-22 12:02 | EKG12_ITS ---
Test Reason : GENERAL Blood Pressure : */* mmHG Vent. Rate : 101 BPM Atrial Rate : 101 BPM P-R Int : 158 ms QRS Dur : 94 ms QT Int : 330 ms P-R-T Axes : 55 52 2 degrees QTcB Int : 427 ms Sinus tachycardia Otherwise normal ECG Confirmed by DIANA PANDEY, TUNG ([id number]), editorial assistant GENEVA ENAMORADO ([id number]) on 09/25/2024 9:16:38 AM Referred By: Confirmed By: TUNG ORTIZ MD
--- NOTE | 2024-09-22 12:02 | CT_ITS ---
PROCEDURE: BRAIN/HEAD WITHOUT CONTRAST 09/22/2024 REASON FOR EXAM: SYNCOPE TECHNIQUE: BRAIN/HEAD WITHOUT CONTRAST Coronal and Sagittal reconstruction series were provided. One or more dose reduction techniques were used (e.g., Automated exposure control, adjustment of the mA and/or kV according to patient size, use of iterative reconstruction technique. RADIATION DOSE SUMMARY: CTDlvol: 44.99 mGy DLP: A 12.98 mGycm COMPARISON: None FINDINGS: Brain: Normal CSF Spaces: Normal Sinuses/Mastoids: Clear at visualized levels Bones: Unremarkable CT/Brain/Head without Contrast IMPRESSION: NO ACUTE FINDINGS Reading Location: [place] [id number]
--- NOTE | 2024-09-22 12:10 | EX.ED.DYSGE1 ---
HPI <AMMY Grant - Last Filed: 09/22/24 14:37> History of Present Illness Chief Complaint: Seizure Narrative Narrative: 53-year-old female with past medical history of migraines, hypothyroidism presents after a possible seizure. The only thing she remembers is feeling nauseated and going into the bathroom at work. She was found on the ground with a an abrasion on her chin and was disoriented. She does not recall what happened. She complains of a headache but denies nausea or vomiting. No chest pain or shortness breath. No history of seizures. She is not on blood thinners. [facility] <AMMY Grant - Last Filed: 09/22/24 14:37> [facility] Medical History Allergies Arthritis Back problem Carpal tunnel syndrome Depression with anxiety Frequent headaches Goiter Hearing problem Heart valve problem History of gallstones Hx of migraines Hypothyroidism Lymphocytic thyroiditis (~06/25/18) Multinodular goiter Obesity Thyroid disease Thyroid nodule Thyromegaly Vitamin D deficiency Home Medications ?Medication ?Instructions ?Recorded ?Last Taken ?Type multivitamin 1 cap PO DAILY 06/13/18 Unknown History thyroid (pork) 180 mg tablet 120 mg PO DAILY 07/29/21 Unknown History ([place] Thyroid) ibuprofen 600 mg tablet 600 mg PO Q6H PRN fever or pain 12/25/21 Unknown Rx #20 tabs celecoxib 200 mg capsule 200 mg PO QDAY 08/30/24 Unknown History famotidine 40 mg tablet 40 mg PO QHS 08/30/24 Unknown History pantoprazole 40 mg tablet,delayed 40 mg PO QDAY 08/30/24 Unknown History release sertraline 50 mg tablet 100 mg PO DAILY 08/30/24 Unknown History Allergy/AdvReac Type Severity Reaction Status Date / Time escitalopram (From Lexapro) Allergy Intermediate twitching/nervous Verified 09/17/22 13:35 feeling propranolol AdvReac Nausea Verified 09/17/22 13:35 Family History Grandmother Cancer Throat cancer Heart disease Thyroid disorder Grandfather Cancer Lung cancer Stomach cancer Mother Heart disease Thyroid disorder Myocardial infarction Hypertension Father Diabetes High cholesterol Other Alcohol abuse Surgical History History of laparoscopic cholecystectomy History of tonsillectomy History of tubal ligation history ORIF right ankle S/P fine needle aspiration (~06/25/18) Social History Smoking Status: Never smoker alcohol intake: current alcohol intake frequency: 0-2 drinks per day substance use type: does not use ROS <AMMY Grant - Last Filed: 09/22/24 14:37> ROS ED ROS Narrative Constitutional: Negative for fever, chills. CVS: Negative for chest pain. Respiratory: Negative for shortness of breath. GI: Negative for abdominal pain, nausea, vomiting. EXAM <AMMY Grant - Last Filed: 09/22/24 14:37> Physical Exam Narrative Exam Narrative: CONST: Patient sitting in no acute distress. EYES: Normal inspection. PERRL, EOMI ENT: Left-sided tongue bite, otherwise normal, moist mucous membranes. NECK: Normal inspection. RESP: No respiratory distress, CTAB. CVS: Regular rate and rhythm, no murmur, no gallop. ABD: Soft and nontender, no guarding or rebound, nondistended. SKIN: Color normal, no rash, warm, dry, intact. EXTREMITIES: Normal appearance, no pedal edema. NEURO: Slow to answer questions but alert and oriented x 4, face symmetric, follows commands, 5/5 wellness program administrator strength and dorsiflexion and plantarflexion. PSYCH: Normal affect. Const Vital Signs: 09/22/24 11:56 09/22/24 12:55 Temperature 98.1 F Temperature Source Oral Pulse Rate 115 H 101 H Respiratory Rate 20 H 19 H Blood Pressure 154/85 H 149/79 H Blood Pressure Mean 108 102 Pulse Ox 100 100 Oxygen Delivery Method Room Air Room Air <Dr. Chuck Vargas MD - Last Filed: 09/22/24 13:56> Physical Exam Const Vital Signs: 09/22/24 11:56 09/22/24 12:55 Temperature 98.1 F Temperature Source Oral Pulse Rate 115 H 101 H Respiratory Rate 20 H 19 H Blood Pressure 154/85 H 149/79 H Blood Pressure Mean 108 102 Pulse Ox 100 100 Oxygen Delivery Method Room Air Room Air MDM <AMMY Grant - Last Filed: 09/22/24 14:37> [facility] Narrative Medical decision making narrative: Differential includes but not limited to syncope, seizure, arrhythmia, vasovagal 52-year-old female had an episode of nausea and diaphoresis in the bathroom at work and then had a possible syncopal or seizure. She does not recall the events. She is awake with GCS 15 on arrival but slow to respond. She is fully oriented and does not have focal neurological exams. There is a small left tongue bite chin abrasion but no other injuries. CBC is within normal limits. Chemistry shows CO2 of 14.8, gap of 21, glucose 111, otherwise normal. Alcohol negative. UA negative. CT brain and chest x-ray are unrevealing. Is not clear the etiology of her symptoms. With concern for syncope or seizure I discussed with the hospitalist who evaluated bedside and agreed with admission to PCU. I have personally performed a face to face assessment of the patient and have reviewed the MARCIAL Note. I performed a substantive portion of the visit including all aspects of the following. My ng findings include: History is [53-year-old female history of hypothyroidism. Was at work was using the bathroom. States she began profusely sweating and then had a seizure. This was witnessed by coworkers. She did bite the left side of her tongue and the right cheek. No prior history of seizures. No recent illness.] Exam is [53-year-old female vital signs are stable afebrile. No acute distress. Family at bedside. H EENT exam pupils round react light. No trauma to her face or scalp. She does have a small laceration left lateral aspect of her tongue does not need stone also the inner surface of her right cheek. No facial trauma or scalp tenderness. No hematoma. C-spine and neck nontender. Back nontender. Lungs clear to auscultation bilaterally. Heart regular rhythm no murmur. Chest wall and ribs nontender. Abdomen soft nontender. Moving all 4 extremities. 5 out of 5 wellness program administrator strength. Dorsi plantarflexion intact. Nontender no deformity. Normal range of motion. Neurologically she is awake alert. Answer questions following commands. She is amnestic to the episode.] Medical Decision Making [53-year-old suspect seizure may or might not have had something occur prior to the seizure to cause a seizure activity.] Other additions or changes: [None] Lab Data Attestation: I reviewed the patient's lab results. Labs: Laboratory Results - last 24 hr 09/22/24 09/22/24 12:12 14:07 WBC 7.6 RBC 4.39 Hgb 13.5 Hct 40.1 MCV 91.3 MCH 30.8 MCHC 33.7 RDW Std Deviation 44.3 H RDW Coeff of [place]iera 13.2 Plt Count 284 MPV 10.0 Immature Gran % (Auto) 0.400 Neut % (Auto) 51.4 Lymph % (Auto) 37.3 [place] % (Auto) 7.2 Eos % (Auto) 3.0 Baso % (Auto) 0.7 Absolute Neuts (auto) 3.9 Absolute Lymphs (auto) 2.83 Nucleated RBC % 0 Sodium 139 Potassium 4.0 Chloride 103 Carbon Dioxide 14.8 L Anion Gap 21 H BUN 19 Creatinine 1.02 Estim Creat Clear Calc 70.16 Est GFR (MDRD) Non-Af 66 BUN/Creatinine Ratio 18.7 Glucose 111 H Calcium 8.9 Total Bilirubin 0.22 AST 27 ALT 17 Alkaline Phosphatase 80 Total Protein 7.2 Albumin 4.2 Globulin 3.0 Albumin/Globulin Ratio 1.4 Urine Color Yellow Urine Clarity Clear Urine pH 6.0 Ur Specific [place] 1.015 Urine Protein 15 H Urine Glucose (UA) Normal Urine Ketones Negative Urine Occult Blood Negative Urine Nitrite Negative Urine Bilirubin Negative Urine Urobilinogen Normal Ur Leukocyte Esterase Negative Urine RBC 0 SEEN Urine WBC 0 SEEN Ur Squamous Epith Cells 0-5 SEEN Urine Bacteria 0 SEEN Urine Mucus 0 SEEN Ethyl Alcohol < 10.1 Radiography Diagnostic Testing: Clinical Impression(s) from Imaging Studies Brain CT 09/22/24 12:02 IMPRESSION: NO ACUTE FINDINGS Reading Location: [place] [address] Chest X-Ray 09/22/24 13:15 IMPRESSION: No Acute Findings. Reading Location: [facility] ED attending interpretation 1 view chest x-ray shows normal heart size, no acute infiltrate. EKG Initial EKG: Attestation: I personally reviewed and interpreted this EKG as follows: Interpretation: No Acute Injury Pattern and Sinus Tachycardia Comments: Sinus tachycardia at 101 bpm Normal axis, no acute ischemic changes <Dr. Chuck Vargas MD - Last Filed: 09/22/24 13:56> [facility] Narrative Medical decision making narrative: I have personally performed a face to face assessment of the patient and have reviewed the MARCIAL Note. I performed a substantive portion of the visit including all aspects of the following. My ng findings include: History is [53-year-old female history of hypothyroidism. Was at work was using the bathroom. States she began profusely sweating and then had a seizure. This was witnessed by coworkers. She did bite the left side of her tongue and the right cheek. No prior history of seizures. No recent illness.] Exam is [53-year-old female vital signs are stable afebrile. No acute distress. Family at bedside. H EENT exam pupils round react light. No trauma to her face or scalp. She does have a small laceration left lateral aspect of her tongue does not need stone also the inner surface of her right cheek. No facial trauma or scalp tenderness. No hematoma. C-spine and neck nontender. Back nontender. Lungs clear to auscultation bilaterally. Heart regular rhythm no murmur. Chest wall and ribs nontender. Abdomen soft nontender. Moving all 4 extremities. 5 out of 5 wellness program administrator strength. Dorsi plantarflexion intact. Nontender no deformity. Normal range of motion. Neurologically she is awake alert. Answer questions following commands. She is amnestic to the episode.] Medical Decision Making [53-year-old suspect seizure may or might not have had something occur prior to the seizure to cause a seizure activity.] Other additions or changes: [None] History & Record Review Discussion w/independent historian: Patient and Family Lab Data Lab results narrative: CBC is unremarkable. Chemistries other than the anion gap of 21 which could be from the seizure is unremarkable. Liver enzymes are normal. Alcohol negative. CAT scan of the brain and chest x-ray are unremarkable. Labs: Laboratory Results - last 24 hr 09/22/24 09/22/24 12:12 14:07 WBC 7.6 RBC 4.39 Hgb 13.5 Hct 40.1 MCV 91.3 MCH 30.8 MCHC 33.7 RDW Std Deviation 44.3 H RDW Coeff of Tiera 13.2 Plt Count 284 MPV 10.0 Immature Gran % (Auto) 0.400 Neut % (Auto) 51.4 Lymph % (Auto) 37.3 [place] % (Auto) 7.2 Eos % (Auto) 3.0 Baso % (Auto) 0.7 Absolute Neuts (auto) 3.9 Absolute Lymphs (auto) 2.83 Nucleated RBC % 0 Sodium 139 Potassium 4.0 Chloride 103 Carbon Dioxide 14.8 L Anion Gap 21 H BUN 19 Creatinine 1.02 Estim Creat Clear Calc 70.16 Est GFR (MDRD) Non-Af 66 BUN/Creatinine Ratio 18.7 Glucose 111 H Calcium 8.9 Total Bilirubin 0.22 AST 27 ALT 17 Alkaline Phosphatase 80 Total Protein 7.2 Albumin 4.2 Globulin 3.0 Albumin/Globulin Ratio 1.4 Urine Color Yellow Urine Clarity Clear Urine pH 6.0 Ur Specific [place] 1.015 Urine Protein 15 H Urine Glucose (UA) Normal Urine Ketones Negative Urine Occult Blood Negative Urine Nitrite Negative Urine Bilirubin Negative Urine Urobilinogen Normal Ur Leukocyte Esterase Negative Urine RBC 0 SEEN Urine WBC 0 SEEN Ur Squamous Epith Cells 0-5 SEEN Urine Bacteria 0 SEEN Urine Mucus 0 SEEN Ethyl Alcohol < 10.1 Radiography Diagnostic Testing: Clinical Impression(s) from Imaging Studies Brain CT 09/22/24 12:02 IMPRESSION: NO ACUTE FINDINGS Reading Location: [place] [address] Chest X-Ray 09/22/24 13:15 IMPRESSION: No Acute Findings. Reading Location: [place] [address] Discharge Plan Triage Chief Complaint: Seizure ED Midlevel Provider: Kayy Hale ED Provider: Chuck Vargas Dx/Rx/DC Orders Clinical Impression: Syncope, Seizure Instructions: ED Seizure [place] [facility] Prescriptions: No Action multivitamin capsule 1 cap PO DAILY sertraline 50 mg tablet 100 mg PO DAILY Patient Comments: TAKE 1 TABLET BY MOUTH AT THE SAME TIME ONCE DAILY celecoxib 200 mg capsule 200 mg PO QDAY pantoprazole 40 mg tablet,delayed release (DR/EC) 40 mg PO QDAY famotidine 40 mg tablet 40 mg PO QHS [place] Thyroid 180 mg tablet 120 mg PO DAILY Patient Comments: TAKE 1 TABLET BY MOUTH ONCE DAILY IN THE MORNING. WAIT 30 MINUTES TO 1 HOUR BEFORE EATING OR DRINKING ANYTHING OTHER THAN WATER ibuprofen 600 mg tablet 600 mg PO Q6H PRN (Reason: fever or pain) Qty: 20 0RF Primary Care Provider: Abdias Kimbrough NP Referrals: JUDITH LITTLE NP-C [Non-Staff] - Activity Restrictions/Additional Instructions: It is not clear if you had a seizure or passed out this morning. I recommend you follow-up with your primary care doctor and neurology. Continue to see neurology you need to follow seizure precautions which include no driving, no elevator (you can shower) no working on ladders or heights. This is for your safety in case you would have another seizure. Print Language: Angolan Disposition Disposition: Home, Self Care
[2024-09-22] MEDS: 0.9% Normal Saline (1000mL) 1,000 ML 999 ML IV (12:15)
[2024-09-22 12:23] LABS: Hematocrit 40.1 % (37-47); Hemoglobin 13.5 g/dL (12.0-15.0); Immature Granulocytes Count 0.030 X10^3/uL (0.0-0.0); Mean Corp Hgb Conc 33.7 g/dL (32-36); Mean Corpuscular Volume 91.3 fL (81-99); Mean Platelet Vol. 10.0 fl (6.2-12.0); NRBC Flagged by Analyzer 0 % (0-5); Platelet Count 284 K/mm3 (150-450); RBC Distribution Width CV 13.2 % (11.6-14.6); RBC Distribution Width SD 44.3 fl (35.1-43.9); Red Blood Count 4.39 M/mm3 (4.2-5.4); White Blood Count 7.6 K/mm3 (4.4-11.0)
[2024-09-22 12:55] VITALS: BP 149/79; PULSE 101; RESP 19; O2SAT 100
[2024-09-22 13:09] LABS: AST(SGOT) 27 U/L (<=31); Alanine Aminotransfer ALT/SGPT 17 U/L (<=34); Albumin, Serum 4.2 g/dL (3.5-5.0); Alkaline Phosphatase 80 U/L (35-104); Anion Gap 21 (5-15); BUN 19 mg/dL (4-19); BUN/Creat Ratio 18.7 RATIO (10-20); Calcium,Total 8.9 mg/dL (7.6-11.0); Carbon Dioxide 14.8 mmol/L (21.0-32.0); Chloride 103 mmol/L (98-108); Estimated Creatinine Clearance 70.16 ml/min (50-250); Globulin 3.0 g/dL (2.2-4.2); Glucose 111 mg/dL (70-99); Potassium 4.0 mmol/L (3.3-5.1)
--- NOTE | 2024-09-22 13:15 | RAD_ITS ---
PROCEDURE: CHEST 1 VIEW (PORTABLE) 09/22/2024 REASON FOR EXAM: SYNCOPE TECHNIQUE: Frontal view of the chest. COMPARISON: Prior study dated June 03, 2018 FINDINGS: Hardware: EKG electrodes are seen. Heart: The heart size is normal. Lungs: The lungs are clear. Bones: Degenerative changes are identified within the thoracic spine. Other: RAD/Chest 1 View (Portable) IMPRESSION: No Acute Findings. Reading Location: [place] [address]
[2024-09-22 13:17] LABS: Alcohol, Blood (Medical)-Serum < 10.1 mg/dL (<=10.0)
[2024-09-22 14:12] LABS: Mucous, Urine 0 SEEN /hpf (<or=2+); Red Blood Cells-Urine 0 SEEN /hpf (0-5)
[2024-09-22 14:22] LABS: Color, Urine Yellow (Yellow); Glucose, Dipstick Normal (Normal); Ketone-Dipstick Negative (Negative); Leukocyte Esterase-Dipstick Negative /ul (Negative); Nitrite-Dipstick Negative (Negative); Occult Blood-Urine Negative /ul (Negative); Protein-Dipstick 15 mg/dl (Negative); Specific Gravity, Urine 1.015 (1.002-1.030); Urine Bilirubin Dipstick Negative (Negative)
[2024-09-22 14:29] LABS: Squamous Epithelial Cells - UA 0-5 SEEN /hpf (5-10)
--- NOTE | 2024-09-22 14:36 | HP.PCM.HOS_ITS ---
HPI - General General Date of Admission: 09/22/24 Date of Service: 09/22/24 Chief Complaint: New onset seizure HPI Narrative BRENNAN MONTEJO, is a 53-year-old female history of migraines, hypothyroidism, depression, GERD who presented to [facility] ED 09/22/2024 for suspected first onset seizure. Reportedly patient was at work and on the toilet and had profuse sweating and then went on to have seizure activity. In the ED temp 98.1, heart rate 115 with a blood pressure 154/85, respiratory rate 20 and pulse ox 100% on room air. Lab workup only revealing for low bicarb and high anion gap which would be consistent with seizure if lactic acid elevated, alcohol negative. CT of the brain no acute process. Given patient's significant hot and sweating feeling immediately before seizure there was concern that maybe there could have been a cardiac component to the seizure activity and home with outpatient follow-up versus inpatient workup and telemetry monitoring for possible cardiac cause were presented to patient in she lives alone and given her symptoms and concern with this prodrome and that this was an actual seizure patient prefers to be admitted which is reasonable. Hospitalist contacted for admission. Patient evaluated at bedside, reports she went to work today at 5 AM and sometime this morning started having a headache over her right eye, does have history of migraines but usually they are frontal or in the back of her head and this was somewhat abnormal for her, she reports then around break at 1015 she got an upset stomach and was not feeling well, when she went to the toilet was sitting down she suddenly became hot and sweaty and was having profuse sweating to the point where she remembered it literally dripping off of her and she removed her watch because she was so wet, the next thing she knew she woke up at the ED and was a little bit confused but now back to baseline. Reportedly a colleague notes that she did have full seizure-like activity and patient did bite tongue, presently feeling achy all over and still has a headache over her right eye, feels somewhat fatigued overall. Denies any chest pain, she does not remember if she had any lightheadedness, changes in vision, shortness of breath during the sweating episode. Denies any current changes in vision or chest pain, no bladder changes but reports she did have diarrhea earlier today but notes she has chronic problems with that off-and-on and it is not necessarily outside the realm of usual for her. Denies any history of seizure disorder. [facility] Medical History Allergies Arthritis Back problem Carpal tunnel syndrome Depression with anxiety Frequent headaches Goiter Hearing problem Heart valve problem History of gallstones Hx of migraines Hypothyroidism Lymphocytic thyroiditis (~06/25/18) Multinodular goiter Obesity Thyroid disease Thyroid nodule Thyromegaly Vitamin D deficiency Home Medications ?Medication ?Instructions ?Recorded ?Last Taken ?Type multivitamin 1 cap PO DAILY 06/13/18 Unkn own History thyroid (pork) 180 mg tablet 120 mg PO DAILY 07/29/21 Unknown History ([place] Thyroid) ibuprofen 600 mg tablet 600 mg PO Q6H PRN fever or p ain 12/25/21 Unknown Rx #20 tabs celecoxib 200 mg capsule 200 mg PO QDAY 08/30/24 Unkn own History famotidine 40 mg tablet 40 mg PO QHS 08/30/24 Unknow n History pantoprazole 40 mg tablet,delayed 40 mg PO QDAY Unknown History release sertraline 50 mg tablet 100 mg PO DAILY 08/30/24 Unk nown History Allergy/AdvReac Type Severity Reaction Status Date / Time escitalopram (From Lexapro) Allergy Intermediate twitching/nervous Verified 09/17/22 13:35 feeling propranolol AdvReac Nausea Verified 09/17/22 13:35 Family History Grandmother Cancer Throat cancer Heart disease Thyroid disorder Grandfather Cancer Lung cancer Stomach cancer Mother Heart disease Thyroid disorder Myocardial infarction Hypertension Father Diabetes High cholesterol Other Alcohol abuse Surgical History History of laparoscopic cholecystectomy History of tonsillectomy History of tubal ligation history ORIF right ankle S/P fine needle aspiration (~06/25/18) Social History Smoking Status: Never smoker alcohol intake: current alcohol intake frequency: 0-2 drinks per day substance use type: does not use ROS ROS Narrative General: Denies fever/chills HENT: Headache of right eye since this morning, denies stuffy nose, denies sore throat EYES: Denies changes in vision Resp: Denies cough, denies shortness of breath Cardiac: Denies chest pain GI: Intermittent diarrhea, denies nausea/vomiting : Denies changes in urination, denies loss of bowel or bladder during incident Extremity: Denies swelling MSK: Feels a little bit weak and achy Neuro: Denies any numbness/tingling Heme: Easy bruising, did bite tongue Skin: Denies rashes Psychiatric: No complaints voiced Vital Signs Vital Signs Vital Signs: 09/22/24 11:56 09/22/24 12:55 Temperature 98.1 F Temperature Source Oral Pulse Rate 115 H 101 H Respiratory Rate 20 H 19 H Blood Pressure 154/85 H 149/79 H Blood Pressure Mean 108 102 Pulse Ox 100 100 Oxygen Delivery Method Room Air Room Air Weight Weight: 95.6 kg Body Mass Index (BMI) 37.3 Physical Exam Narrative General: Alert, oriented, no apparent distress HEENT: Does have evidence that she bit her tongue, normocephalic Eyes: Anicteric, normal conjunctiva, extraocular movements intact, pupils equal Neck: Supple Respiratory: Clear to auscultation bilaterally, normal respiratory effort Cardiovascular: Regular rate and rhythm GI: Soft, nontender, nondistended Extremities: No edema Musculoskeletal: Strength 5 out of 5 in right upper extremity, 5 out of 5 left upper extremity, 5 out of 5 right lower extremity, 5 out of 5 left lower extremity Neuro: No overt focal neurological deficits, cranial nerves II through XII intact, [id number] without significant difficulty bilaterally Skin: No rashes appreciated Psych: Cooperative Results Lab / Micro Data 09/22/24 12:12 09/22/24 12:12 Labs: Laboratory Results - last 24 hr 09/22/24 12:12: WBC 7.6, RBC 4.39, Hgb 13.5, Hct 40.1, MCV 91.3, MCH 30.8, MCHC 33.7, RDW Std Deviation 44.3 H, RDW Coeff of Tiera 13.2, Plt Count 284, MPV 10.0, Immature Gran % (Auto) 0.400, Neut % (Auto) 51.4, Lymph % (Auto) 37.3, [place] % (Auto) 7.2, Eos % (Auto) 3.0, Baso % (Auto) 0.7, Absolute Neuts (auto) 3.9, Absolute Lymphs (auto) 2.83, Nucleated RBC % 0, Sodium 139, Potassium 4.0, Chloride 103, Carbon Dioxide 14.8 L, Anion Gap 21 H, BUN 19, Creatinine 1.02, Estim Creat Clear Calc 70.16, Est GFR (MDRD) Non-Af 66, BUN/Creatinine Ratio 18.7, Glucose 111 H, Calcium 8.9, Total Bilirubin 0.22, AST 27, ALT 17, Alkaline Phosphatase 80, Total Protein 7.2, Albumin 4.2, Globulin 3.0, Albumin/Globulin Ratio 1.4, Ethyl Alcohol < 10.1 09/22/24 14:07: Urine Color Yellow, Urine Clarity Clear, Urine pH 6.0, Ur Specific [place] 1.015, Urine Protein 15 H, Urine Glucose (UA) Normal, Urine Ketones Negative, Urine Occult Blood Negative, Urine Nitrite Negative, Urine Bilirubin Negative, Urine Urobilinogen Normal, Ur Leukocyte Esterase Negative, Urine RBC 0 SEEN, Urine WBC 0 SEEN, Ur Squamous Epith Cells 0-5 SEEN, Urine Bacteria 0 SEEN, Urine Mucus 0 SEEN Imaging Radiology Impression Brain CT 09/22/24 12:02 IMPRESSION: NO ACUTE FINDINGS Reading Location: [place] [address] Chest X-Ray 09/22/24 13:15 IMPRESSION: No Acute Findings. Reading Location: [place] [address] Assessment & Plan Assessment/Plan (1) Seizure: PLAN: Plan # First onset seizure preceded by significant swelling and being hot -Seizure precautions -Discussed with ED physician, given her report of the above there was concern that we needed monitor for cardiac component -EKG in the ED with rate 101, QTc 428 VA 158, send sinus rhythm -Patient to be monitored on telemetry order echocardiogram -Will order MRI -Will order EEG -Will check lactic acid, CK, troponin -Check TSH and free T4 - As needed Ativan-for seizure-like activity -Will hold off on starting antiepileptic given this was for seizure and patient has normal neuroexam and lab workup thus far #Hypothyroidism -Continue home medication at this time #Depression/anxiety -Continue home medications #GERD -Continue PPI #DVT ppx: Lovenox subcu Constanza Swain MD Charges/Coding Visit Charges Inpatient E&M: 66417 Init Hosp L2
--- NOTE | 2024-09-22 14:54 | MRI_ITS ---
PROCEDURE: MR BRAIN W/WO CONTRAST 09/22/2024 REASON FOR EXAM: NEW ONSET SEIZURE TECHNIQUE: MR BRAIN W/WO CONTRAST Multiplanar and multisequence images were obtained. CONTRAST: Clariscan VOLUME: 19 mL COMPARISON: CTA head/neck earlier today 09/23/2024. FINDINGS: Redemonstrated prominent abnormal vascular flow voids consistent with arteriovenous malformation with nidus in the posterior right temporal region. Prominent arterial supply branches from the right MCA, and engorged draining venous vessel to the right transverse sinus. Best depicted on prior CTA. No significant associated parenchymal edema. No evidence of acute hemorrhage, extra-axial collection, mass-effect, or other acute abnormality. No regions of abnormal restricted diffusion to indicate recent infarct. Normal ventricular caliber. No otherwise intracranial mass or pathologic enhancement. Unremarkable orbits. Well-aerated paranasal sinuses and bilateral mastoid air cells. MRI/Brain W/WO Contrast IMPRESSION: Right posterior temporal region arteriovenous malformation, best depicted on pr ior CTA. No significant mass-effect or parenchymal edema. Otherwise no acute intracranial abnormality. Reading Location: [id number]
--- NOTE | 2024-09-22 14:54 | ECHOD_ITS ---
Reason For Study Reason For Study: SYNCOPE Procedure This was a 2D Doppler, Color Flow transthoracic echocardiogram. Exam performed portable in patient room. Left Ventricle Normal left ventricle. Left ventricular systolic function is normal. The LV ejection fraction is 55 %. Right Ventricle Normal right ventricle. Atria Normal left atrium. Mitral Valve The mitral valve is structurally normal. No prolapse or stenosis seen. Trivial mitral valve insufficiency. Tricuspid Valve Right ventricular systolic pressure estimated to be 24 mmHg. No tricuspid valve insufficiency. Aortic Valve Normal aortic valve. Pulmonic Valve Trivial pulmonic valve insufficiency. Great Vessels Normal sized aortic root. Inferior vena cava collapse with respiration. Pericardium/Pleural Epicardial fat. MMode/2D Measurements & Calculations LVIDd: 5.8 cm IVSd: 0.94 cm LVOT diam: 2.2 cm LVIDs: 3.7 cm LVPWd: 0.92 cm LVOT area: 4.0 cm2 RVDd: 4.0 cm FS: 35.4 % asc Aorta Diam: 3.5 cm LAV(MOD-bp): 53.4 ml LVAd ap4: 27.4 cm2 LAV(MOD-bp) Indexed: 27.1 ml/m2 LVLd ap4: 7.3 cm LAV(MOD-sp2): 62.5 ml EDV(MOD-sp4): 85.1 ml LAV(MOD-sp4): 44.3 ml EDV(sp4-el): 87.6 ml LVAs ap4: 16.5 cm2 LVLs ap4: 6.0 cm ESV(MOD-sp4): 38.0 ml ESV(sp4-el): 38.7 ml EF(MOD-sp4): 55.3 % EF(sp4-el): 55.9 % LVAd ap2: 24.8 cm2 SV(MOD-sp4): 47.1 ml SV(MOD-sp2): 35.8 ml LVLd ap2: 7.5 cm SI(MOD-sp4): 23.9 ml/m2 SI(MOD-sp2): 18.1 ml/m2 EDV(MOD-sp2): 68.6 ml EDV(sp2-el): 69.4 ml LVAs ap2: 15.8 cm2 LVLs ap2: 6.6 cm ESV(MOD-sp2): 32.8 ml ESV(sp2-el): 31.9 ml EF(MOD-sp2): 52.2 % SV(sp4-el): 48.9 ml Ao sinus diam: 3.[address] Junction: 2.8 cm LA dimension(2D): 4.3 cm LA A4 area: 17.0 cm2 RA A4 area: 14.7 cm2 TAPSE: 2.1 cm Time Measurements MV dec time: 0.16 sec Doppler Measurements & Calculations MV E max migue: 84.9 cm/sec Lat Peak E' [place]: 12.0 cm/sec Med Peak [place]: 10.1 cm/sec MV A max migue: 82.6 cm/sec E/E' lat: 7.1 E/E' med: 8.4 MV E/A: 1.0 MV dec slope: 531.1 cm/sec2 Ao V2 max: 135.9 cm/sec LV V1 max: 111.4 cm/sec Ao max P.4 mmHg LV V1 max P.0 mmHg Ao V2 mean: 108.2 cm/sec LV V1 mean P.0 mmHg Ao mean P.9 mmHg LV V1 mean: 81.7 cm/sec Ao V2 VTI: 32.7 cm LV V1 VTI: 25.6 cm AV (velocity ratio): 0.78 JAVIER(I,D): 3.1 cm2 JAVIER(V,D): 3.2 cm2 SV(LVOT): 101.4 ml PA V2 max: 86.1 cm/sec TR max migue: 228.0 cm/sec TR max P.8 mmHg ECHO/Echo Complete Interpretation Summary The LV ejection fraction is 55 %. Epicardial fat. Ordering Physician: Constanza Swain Performed By: Latha Bishop RDCS
[2024-09-22 15:01] VITALS: BP 154/85; PULSE 98; RESP 23; TEMP 37; O2SAT 100
[2024-09-22 16:04] VITALS: BP 133/69; PULSE 75; RESP 16; TEMP 36.8; O2SAT 100
[2024-09-22 16:07] VITALS: BMI 36.1
[2024-09-22 16:09] LABS: Barbiturate Urine NEGATIVE (< 200 ng/mL); Benzodiazepine Urine NEGATIVE (< 200 ng/mL); PCP Urine NEGATIVE (< 25 ng/mL); THC Urine PRESUMPTIVE POSITIVE (< 50 ng/mL)
[2024-09-22] MEDS: 0.9% Normal Saline (1000mL) 1,000 ML 100 ML IV (18:02)
[2024-09-22 18:14] LABS: CPK Total, Creatine Kinase 67 U/L (24-195)
[2024-09-22 19:06] LABS: Troponin T High Sensitivity 7 ng/L (<=14)
--- OUTSIDE RECORDS SUMMARY | 2024-09-22 19:14 | XMS RPT_ITS | CCD ---
Author Organization [facility] Care Team Providers Care Delinquency Counselor Name Role Phone PHYSICIAN, NONE Primary Care Physician Unavailab amor KIMBROUGH SENIOR ACCOUNTING CLERK - STUDENT EDUCATION SPECIALIST, ADAMARIS Almeida Primary Care Phys ician Kaylan CARE TRANSITIONS MANAGER, CARE TRANSITIONS MANAGER-C Adamaris Núñez Primary Care Pr ovider Kaylan CARE TRANSITIONS MANAGER, CARE TRANSITIONS MANAGER-C Adamaris Núñez Referring Provi anna Dr. Jamal Hurd Attending Provider [phone] Dr. James Charlton Attending Provider Care Physician, No Primary Referring Provider Un available Dr. Kvng Wayne Attending Provider [phone] Ivan Horta Attending Provider [phone] SIDNEY SENIOR ACCOUNTING CLERK-CNM, JUDITH L Primary Care Physic doug SIDNEY SENIOR ACCOUNTING CLERK-CNM, JUDITH L Attending Hoda vailable LITTLE SENIOR ACCOUNTING CLERK-CNM, RICHSONY L Primary Care Hoda vailable LITTLE SENIOR ACCOUNTING CLERK-CNM, RICHELE L Attending Hoda vailable LITTLE SENIOR ACCOUNTING CLERK-CNM, RICHELE L Primary Care Hoda vailable KAYLAN SENIOR ACCOUNTING CLERK - STUDENT EDUCATION SPECIALIST, ADAMARIS Almeida Primary Care U navailable KAYLAN SENIOR ACCOUNTING CLERK - STUDENT EDUCATION SPECIALIST, ADAMARIS Almeida Attending U navailable KAYLAN SENIOR ACCOUNTING CLERK - STUDENT EDUCATION SPECIALIST, ADAMARIS Almeida Attending U navailable KAYLAN SENIOR ACCOUNTING CLERK - STUDENT EDUCATION SPECIALIST, ADAMARIS Almeida Primary Care U navailable KAYLAN SENIOR ACCOUNTING CLERK - STUDENT EDUCATION SPECIALIST, ADAMARIS Almeida Attending U navailable KAYLAN SENIOR ACCOUNTING CLERK - STUDENT EDUCATION SPECIALIST, ADAMARIS Juan Pablo Primary Care U navailable LITTLE SENIOR ACCOUNTING CLERK-CNM, JUDITH L Attending Hoda vailable LITTLE SENIOR ACCOUNTING CLERK-CNM, RICHELE L Primary Care Hoda vailable SIDNEY CARE TRANSITIONS MANAGER-C, JUDITH Primary Care Provider [phone] SIDNEY CARE TRANSITIONS MANAGER-C, JUDITH Referring Provider Hyun Campos Attending Provider Hyun Bueno Attending Unavailable JUDITH LITTLE Referring Unavailable JUDITH LITTLE Primary Care Unavailable Friend, Payam Attending Unavailable JUDITH LITTLE Primary Care Unavailable Sam PANDEY, Dr. Woods Emergency Provider Kaylan CARE TRANSITIONS MANAGER-C, Adamaris Núñez Primary Care Provi anna Wiliam PANDEY, Dr. Apodaca Attending Provider Allergies Allergy Classification Reported Allergen(s) Allergy Type Date of Onset Reaction(s) Facility (13 sources) Escitalopram; Translations: [escitalopram] Drug Allergy 2 twitching/nervo us feeling, shaky [facility] Work Phone: (6 sources) Propranolol Drug Allergy 2 Nausea [facility] (1 source) Escitalopram Drug Allergy 3 [facility] Repository (1 source) Propranolol Drug Allergy 3 [facility] Repository Medications Current Medications Medication Drug Class(es) Dates Sig (Normalized) Sig (Original) celecoxib 200 mg oral capsule (9 sources) Nonsteroidal Anti-inflammatory Drug Start: 08-30-2024 take 1 capsule by mouth once daily Celecoxib 200 mg capsule Active 200 mg PO daily August 30, 2024 12:00am Start: 05-15-2024 End: 07-14-2024 CeleBREX 200 mg oral capsule Dose : 200 mg = 1 cap(s), Oral, qDay, # 30 cap(s), 1 Refill(s), Pharmacy: [id number], Multiple joint pain, 159, cm, 05/15/24 14:41:00 EDT, Height, kg, 05/15/24 14:41:00 EDT, Dosing Weight Start Date: 05/15/24 Stop Date: 07/14/24 Status: Ordered Quantity: 30.0 Unit: cap(s) Repeat number: 2 Indications: Pain in unspecified joint; Start: 05-22-2021 End: 09-10-2021 CeleBREX 200 mg oral capsule Dose : 200 mg = 1 cap(s), Oral, qDay, # 30 cap(s), 2 Refill(s), Pharmacy: [id number], Pain of meniscus of left knee Multiple joint pain, 161, cm, 06/12/21 15:55:00 EDT, Height, kg, 06/12/21 15:55:00 EDT, Dosing Weight Start Date: 06/12/21 Stop Date: 09/10/21 Status: Ordered DHEA 10 mg oral capsule (2 sources) Start: 05-15-2024 DHEA 10 mg ora l capsule Dose : 10 mg = 1 cap(s), Oral, Daily, # 90 cap(s), 0 Refill(s) Start Date: 05/15/24 Status: Ordered Quantity: 90.0 Unit: cap(s) Repeat number: 1 Estradiol Patch 0.05 mg/24 hours twice weekly transdermal film, extended release (2 sources) Start: 05-15-2024 Estradiol Patc h 0.05 mg/24 hours twice weekly transdermal film, extended release Dose = 1 patch(es), Transdermal, 2x/Wk, apply to skin, # 8 patch(es), 0 Refill(s) Start Date: 05/15/24 Status: Ordered Quantity: 8.0 Unit: patch(es) Repeat number: 1 famotidine 40 mg oral tablet (2 sources) Histamine-2 Receptor Antagonist Start: 08-30-2024 take 1 tablet by mouth at bedtime Famotidine 40 mg tablet Active 40 mg PO AT BEDTIME August 30, 2024 12:00am ibuprofen 600 mg oral tablet (9 sources) Nonsteroidal Anti-inflammatory Drug Start: 12-25-2021 take 1 tablet by mouth every six hours as needed for pain Ibuprofen 600 mg tablet Active 600 mg PO EVERY 6 HOURS as needed for fever or pain December 25, 2021 1:00am Start: 06-13-2018 End: 03-20-2019 take 2 capsules by mouth twice daily Ibuprofen 200 mg capsule Discontinued 400 mg PO TWICE A DAY June 13, 2018 12:00am March 20, 2019 8:30am Start: 06-13-2018 End: 03-20-2019 take 400 mg by mouth twice daily Ibuprofen Discontinue d 400 MG PO TWICE A DAY June 13, 2018 12:00am March 20, 2019 8:30am multivitamin capsule (4 sources) Start: 06-13-2018 take 1 capsule by mouth once daily multivitamin capsule Active 1 CAP PO DAILY June 13, 2018 7:54am Start: 06-13-2018 take 1 capsule by mo uth once daily multivitamin capsule Active 1 CAP PO DAILY June 13, 2018 12:00am Multivitamin capsule (2 sources) Start: 06-13-2018 Multivitamin c apsule Active 1 NMA PO DAILY June 13, 2018 12:00am Multivitamin preparation (7 sources) Start: 05-16-2021 take 1 tablet by mouth once daily Multivitamin Dose = 1 tab(s), Oral, Daily, 0 Refill(s) Start Date: 05/16/21 Status: Ordered Repeat number: 1 Start: 05-16-2021 take 1 tablet by del th once daily Multivitamin Dose = 1 tab(s), Oral, Daily, 0 Refill(s) Start Date: 05/16/21 Status: Ordered pantoprazole 40 mg delayed release oral tablet (2 sources) Proton Pump Inhibitor Start: 08-30-2024 take 1 tablet by mouth once daily Pantoprazole 40 mg tablet,delayed release (DR/EC) Active 40 mg PO daily August 30, 2024 12:00am sertraline 50 mg oral tablet (19 sources) Serotonin Reuptake Inhibitor Start: 08-30-2024 take 2 tablets by mouth once daily Sertraline 50 mg tablet Active 100 mg PO DAILY August 30, 2024 1:34pm Start: 07-31-2024 End: 08-30-2024 sertraline 100 mg oral table t Dose : 100 mg = 1 tab(s), Oral, qDay, # 30 tab(s), 0 Refill(s), Pharmacy: [id number], JEFF (generalized anxiety disorder), 159, cm, 07/10/24 15:00:00 EDT, Height, kg, 07/10/24 15:00:00 EDT, Dosing Weight Start Date: 07/31/24 Stop Date: 08/30/24 Status: Ordered Quantity: 30.0 Unit: tab(s) Repeat number: 1 Indications: Generalized anxiety disorder; Start: 05-15-2024 End: 07-14-2024 sertraline 100 mg oral table t Dose : 100 mg = 1 tab(s), Oral, qDay, # 30 tab(s), 1 Refill(s), Pharmacy: [id number], JEFF (generalized anxiety disorder), 159, cm, 05/15/24 14:41:00 EDT, Height, kg, 05/15/24 14:41:00 EDT, Dosing Weight Start Date: 05/15/24 Stop Date: 07/14/24 Status: Ordered Quantity: 30.0 Unit: tab(s) Repeat number: 2 Indications: Generalized anxiety disorder; Start: 06-12-2021 End: 08-30-2024 take 1 tablet by mouth once daily Sertraline 50 mg tablet Discontinued 50 mg PO DAILY July 29, 2021 12:00am August 30, 2024 1:37pm Start: 05-16-2021 take 1 tablet by del th once daily sertraline 50 mg oral tablet TAKE 1 TABLET BY MOUTH AT THE SAME TIME ONCE DAILY Start Date: 05/16/21 Status: Ordered Start: 06-03-2018 End: 08-13-2021 take 2 tablets by mouth once daily Sertraline 25 MG tablet Discontinued 50 mg PO DAILY June 03, 2018 12:00am August 13, 2021 8:31am Start: 06-03-2018 End: 08-13-2021 take 50 mg by mouth once daily Sertraline Discontinued 50 MG PO DAILY June 03, 2018 12:00am August 13, 2021 8:31am thyroid (mcc) 180 mg oral tablet (17 sources) Start: 06-12-2021 End: 09-10-2021 [place] Thyroid 120 mg oral tablet Dose : 120 mg = 1 tab(s), Oral, qDay, # 30 tab(s), 2 Refill(s), Pharmacy: [id number], 161, cm, 06/12/21 15:55:00 EDT, Height Start Date: 06/12/21 Stop Date: 09/10/21 Status: Ordered Start: 04-28-2021 End: 07-29-2021 take 1 tablet by mouth once daily Thyroid (Pork) (Armo ur Thyroid) 180 mg tablet Active 120 mg PO DAILY July 29, 2021 2:40pm Completed/Discontinued Medications Medication Drug Class(es) Dates Sig (Normalized) Sig (Original) amoxicillin 875 mg / clavulanate 125 mg oral tablet (6 sources) Penicillin-class Antibacterial Start: 03-20-2019 End: 03-30-2019 Amoxicillin-Pot Clavulanate (Augmentin) 875-125 mg tablet Discontinued 1 {tbl} PO Q12H 20 10 0 March 20, 2019 1:00am March 29, 2019 1:00am March 30, 2019 1:08am cephalexin 500 mg oral capsule (8 sources) Cephalosporin Antibacterial Start: 04-28-2021 End: 06-25-2021 take 1 capsule by mouth every six hours Cephalexin 500 MG capsule Discontinued 500 mg PO EVERY 6 HOURS 28 0 April 28, 2021 12:00am June 25, 2021 11:09am levothyroxine sodium 0.15 mg oral tablet (12 sources) l-Thyroxine Start: 01-18-2015 End: 07-27-2019 Levothyroxine 150 MCG tablet Discontinued 100 ug PO DAILY January 18, 2015 1:00am July 27, 2019 8:32am Start: 01-18-2015 End: 07-27-2019 take 100 ug by mouth once daily Levothyroxine Discontinued 100 MCG PO DAILY January 18, 2015 1:00am July 27, 2019 8:32am Start: 07-31-2014 End: 01-19-2015 take 150 ug by mouth once daily Synthroid Discontinued 150 MCG PO DAILY July 31, 2014 10:52am January 19, 2015 1:51pm Start: 07-31-2014 End: 01-19-2015 take 150 ug by mouth once daily Synthroid Discontinued 150 ug PO DAILY July 31, 2014 12:00am January 19, 2015 1:51pm Start: 07-31-2014 End: 01-19-2015 take 150 ug by mouth once daily Synthroid Discontinued 150 MCG PO DAILY July 31, 2014 12:00am January 19, 2015 1:51pm traMADol hydrochloride 50 mg oral tablet (6 sources) Opioid Agonist Start: 07-16-2019 End: 07-19-2019 take 1 tablet by mouth every four hours as needed for pain Tramadol 50 MG tablet Discontinued 50 mg PO EVERY 4 HOURS NEEDED as needed for Pain 12 3 July 16, 2019 12:00am July 18, 2019 12:00am July 19, 2019 12:02am Problems Active Problems Problem Classification Problem Date Documented Da te Episodic/Chronic Abdominal hernia (2 sources) Hiatal hernia; Translations: [Diaphragmatic hernia without obstruction or gangrene] 08-30-2024 Episodic Abdominal pain (2 sources) Right flank pain 07-10-2024 Episodic Anxiety disorders (13 sources) Mixed anxiety and depressive disorder; Translations: [Other specified anxiety disorders] 05-22-2021 Chronic Cardiac dysrhythmias (6 sources) Ventricular premature beats; Translations: [Ventricular premature depolarization] 07-16-2019 Chronic Cardiac dysrhythmias (2 sources) Palpitations 05-15-2024 Episodic Epilepsy; convulsions (1 source) Seizure; Translations: [Unspecified convulsions] 09-22-2024 Episodic Esophageal disorders (2 sources) Gastroesophageal reflux disease 07-10-2024 Chronic Headache; including migraine (8 sources) Migraine; Translations: [Migraine, unspecified, not intractable, without status migrainosus] 07-16-2019 Chronic Immunizations and screening for infectious disease (6 sources) Contact with or exposure to other viral diseases; Translations: [Exposure to COVID-19 virus] 12-02-2020 Episodic Malaise and fatigue (2 sources) Fatigue 07-10-2024 Episodic Nonspecific chest pain (6 sources) Chest pain; Translations: [Chest pain, unspecified] 07-16-2019 Episodic Nutritional deficiencies (6 sources) Vitamin D deficiency; Translations: [Vitamin D deficiency, unspecified] 04-04-2020 Chronic Osteoarthritis (5 sources) Osteoarthritis; Translations: [Unspecified osteoarthritis, unspecified site] Chronic Other connective tissue disease (7 sources) Ganglion cyst 05-22-2021 Episodic Other diseases of veins and lymphatics (6 sources) Disorder of soft tissue of lower limb; Translations: [Lymphangitis] 05-06-2021 Chronic Other gastrointestinal disorders (4 sources) Abdominal bloating; Translations: [Abdominal distension (gaseous)] 07-10-2024 Episodic Other gastrointestinal disorders (2 sources) Diarrhea 07-10-2024 Episodic Other gastrointestinal disorders (2 sources) Stool finding; Translations: [Other fecal abnormalities] 08-30-2024 Episodic Other injuries and conditions due to external causes (4 sources) Injury of forearm; Translations: [Unspecified injury of unspecified muscles, fascia and tendons at forearm level, left arm, initial encounter] 07-17-2019 Episodic Other injuries and conditions due to external causes (2 sources) Injury of left forearm; Translations: [Unspecified injury of unspecified muscles, fascia and tendons at forearm level, left arm, initial encounter] 07-17-2019 Episodic Other lower respiratory disease (6 sources) Cough; Translations: [Cough] 12-02-2020 Episodic Other nervous system disorders (6 sources) H/O: migraine; Translations: [Personal history of other diseases of the nervous system and sense organs] 04-04-2020 Episodic Other non-traumatic joint disorders (7 sources) Multiple joint pain 05-22-2021 Episodic Other non-traumatic joint disorders (4 sources) Pain in left knee; Translations: [Left knee pain] 06-25-2021 Episodic Other nutritional; endocrine; and metabolic disorders (6 sources) Obesity; Translations: [Obesity, unspecified] 04-04-2020 Chronic Other upper respiratory infections (9 sources) Acute upper respiratory infection; Translations: [Acute upper respiratory infection, unspecified] 12-02-2020 Episodic Residual codes; unclassified (6 sources) Generalized aches and pains; Translations: [Pain, unspecified] 12-02-2020 Episodic Residual codes; unclassified (7 sources) FH: Rheumatoid arthritis 05-22-2021 Episodic Comment on above: mother suffered from RA Residual codes; unclassified (7 sources) Increased body mass index 05-22-2021 Episodic Residual codes; unclassified (4 sources) Did not attend 12-15-2021 Episodic Comment on above: No show for apt on 02/14/2021 06/20/2024 Residual codes; unclassified (4 sources) Early satiety; Translations: [Early satiety] 07-10-2024 Episodic Syncope (1 source) Syncope; Translations: [Syncope and collapse] 09-22-2024 Episodic Thyroid disorders (20 sources) Goiter; Translations: [Iodine-deficiency related diffuse (endemic) goiter] Onset: 9 05-08-2021 Chronic Comment on above: ULTRASOUND OF THE TH YROID WITH COLOR DOPPLER FLOW EVALUATION: 04/30/2021 Ultrasound Thyroid COMPARISON: None available at this institution, the patient has had multiple previous ultrasounds and biopsies done elsewhere HISTORY: ORDERING SYSTEM PROVIDED HISTORY: Reason for Exam: E07.89 OTHER SPECIFIED DISORDERS OF THYROID, history of high she motor thyroiditis FINDINGS: Size right thyroid lobe: 6.9 x 2.9 x 2.7 cm Size left thyroid lobe: 5.3 x 1.5 x 1.2 cm Size isthmus: 0.6 cm Texture: Extensively heterogeneous with moderately increased vascularity. The entire right lobe is replaced by innumerable poorly defined echogenic nodular areas. Estimated total number of nodules greater than or equal to 1 cm:1 Nodule#: # 1: Maximum size: 3.1 cm . All dimensions: 3.1 x 1.4 x 1.2 cm Location: Left Mid Composition: solid or almost completely solid: 2 points Echogenicity: isoechoic: 1 point Shape: taller than wide: 3 points Margins: smooth: 0 points Echogenic foci: none: 0 points ACR Total Points: 6; ACR TI-RADS risk category: TR4 - moderately suspicious nodule. No other discrete thyroid nodules. There are a few benign appearing ovoid left cervical lymph nodes of no clinical significance. IMPRESSION: 1. Enlarged markedly heterogeneous thyroid usually a reflection of previous thyroiditis. 2. Nodule 1: ACR TI-RADS 2017 Category 4. Recommend: Ultrasound-guided fine needle aspiration This is a 51-year-ol d female who follows up for a history of thyroid nodularity and known history of lymphocytic thyroiditis. Patient underwent ultrasound imaging August 26, 2022 and was found to have 2 right-sided thyroid nodules which were 1.2 cm and 0.9 cm respectively. Radiology rated them TI-RADS 3 and 4, respectively. That said radiology also noted that the TI-RADS 4 lesion was unchanged from the comparator study in 2019. More recently I evaluated patient in initial surgical consultation August 2021 due to an enlarged left-sided thyroid nodule. Since that time patient has had 2 subsequent ultrasounds and both of these studies suggest that the nodule in question is actually the entirety of the left lobe of the thyroid. It was through my independent review of the patient's imaging as well as my own bedside sonogram study that I conclude Ms. Montejo has a dominant pseudonodule of the left mid to inferior portion of her thyroid lobe, however, I believe her lobe actually extends both superiorly and inferiorly from what was measured by the technologist on the past 2 studies. This is demonstrated by extending the exam superiorly and inferiorly with color Doppler as well as following patient's thyroid capsule contour. With this distinction accepted, I agree with radiology that there has not been any substantial change to patient's left-sided pseudonodule and the right-sided nodules do not meet criteria for biopsy. (It is noted that patient's nodule has been previously biopsied and was consistent simply with lymphocytic thyroiditis). These impressions were shared with the patient and I have taken her through the ultrasound imaging to explain my rationale for this interpretation. She expresses her appreciation, but does suggest some frustration with the length of time that her thyroid nodules have been under surveillance (she suggests since 1997). Added to this she states that sometimes she wishes that it was simply all taken out and that she would have a thyroidectomy. To this statement, I have replied with a word of caution that I simply do not think we have justifiable cause to warrant the risk of surgery with her current presentation and mostly readily acknowledges the truthfulness with this statement. She agrees to continued surveillance. In the interim we will look for laboratories that were reportedly obtained through outside health system. Unclassified (7 sources) Pain of knee region 05-22-2021 Unclassified (20 sources) Patient encounter status 05-22-2021 Unclassified (4 sources) Non-smoker 06-12-2021 Past or Other Problems Problem Classification Problem Date Documented Date Episodic/Chronic Residual codes; unclassified (6 sources) Past history of procedure; Translations: [Other specified postprocedural states] Onset: 06-08-2018 04-04-2020 Episodic Comment on above: Bilateral thyroid no dules- 06/25/18 Residual codes; unclassified (1 source) Other specified postprocedural states; Translations: [Other postprocedural status] Onset: 06-08-2018 Episodic Unclassified (6 sources) history ORIF right ankle 08-13-2021 Comment on above: Feb 2009 Results Test Name Value Interpretation Reference Range Facility Absolute lymphocyte countOrd ered By: Kayy Hale on 09-22-2024 Lymphocytes Auto (Unsp spec) [#/Vol] 2.83 10*3/uL 0.83-4.51 [facility] Absolute neutrophil countOrd ered By: Kayy Hale on 09-22-2024 Neutrophils (Bld) [#/Vol] 3.9 10*3/uL 2.0-7.7 [facility] Anion gap in Serum or Plasma Ordered By: Kyay Hale on 09-22-2024 Anion gap [Moles/Vol] 21 mmol/L High 5-15 [facility] Automated lymphocyte count a s percentage of total leukocytesOrdered By: Kayy Hale on 09-22-2024 Lymphocytes/100 WBC Auto (Unsp spec) 37.3 % 19-41 [facility] BUN/creatinine ratioOrdered By: Kayy Hale on 09-22-2024 Urea nitrogen/Creatinine [Mass ratio] 18.7 mg/mg 10-20 [facility] Basophil percentageOrdered B y: Kayy Hale on 09-22-2024 Basophils/100 WBC (Bld) 0.7 % 0-1 [facility] Bilirubin Test strip Ql (U)O rdered By: Kayy Hale on 09-22-2024 Bilirubin Ql (U) Negative Negative [facility] Bilirubin, totalOrdered By: Kayy Hale on 09-22-2024 Bilirubin [Mass/Vol] 0.22 mg/dL 0.00-1.30 [facility] Carbon dioxide, total [Moles /volume] in Central venous bloodOrdered By: Kayy Hale on 09-22-2024 CO2 [Moles/Vol] 14.8 mmol/L Low 21.0-32.0 [facility] Chloride assayOrdered By: Heidi Hale on 09-22-2024 Chloride [Moles/Vol] 103 mmol/L 98-108 [facility] Eosinophil percentageOrdered By: Kayy Hale on 09-22-2024 Eosinophils/100 WBC (Bld) 3.0 % 0-5 [facility] Erythrocyte distribution wid th ratioOrdered By: Kayy Hale on 09-22-2024 Erythrocyte distribution width (RBC) [Ratio] 13.2 % 11.6-14.6 [facility] Erythrocyte distribution wid th standard deviationOrdered By: Kayy Hale on 09-22-2024 Erythrocyte distribution width (RBC) [Ratio] 44.3 fl High 35.1-43.9 [facility] Glomerular filtration rate ( GFR) estimation/1.73 sq m using serum, plasma, or whole bOrdered By: Kayy Hale on 09-22-2024 GFR/1.73 sq M.predicted among non-blacks MDRD (S/P/Bld) [Vol rate/Area] 66 mL/min/{1.73_m2} >60 [facility] Comment on above: mL/min/1.73m2 CKD-EP I Creatinine Equation (2020) Hematocrit Auto (Bld) [Volum e fraction]Ordered By: Kayy Hale on 09-22-2024 Hematocrit (Bld) [Volume fraction] 40.1 % 37-47 [facility] Hemoglobin measurementOrdere d By: Kayy Hale on 09-22-2024 Hemoglobin (Bld) [Mass/Vol] 13.5 g/dL 12.0-15.0 [facility] Immature granulocytes/100 WB C Auto (Bld)Ordered By: Kayy Hale on 09-22-2024 Immature granulocytes/100 WBC (Bld) 0.400 % 0.0-0.9 [facility] Comment on above: IG% - Immature Granu locytes (promyelocytes, myelocytes and metamyelocytes) > 1% indicates that a LEFT SHIFT is Present. Ketones Test strip Ql (U)Ord ered By: Kayy Hale on 09-22-2024 Ketones Ql (U) Negative Negative [facility] Laboratory - Chemistry and C hemistry - challengeOrdered By: Kayy Hale on 09-22-2024 AST [Catalytic activity/Vol] 27 U/L <32 [facility] Comment on above: Hemolysis present, R esults could be affected. MCV (mean corpuscular volume ) determinationOrdered By: Kayy Hale on 09-22-2024 MCV (RBC) [Entitic vol] 91.3 fL 81-99 [facility] Mean corpuscular hemoglobin (MCH) determinationOrdered By: Kayy Hale on 09-22-2024 MCH (RBC) [Entitic mass] 30.8 pg 27.0-32.0 [facility] Mean corpuscular hemoglobin concentration (MCHC) determinationOrdered By: Kayy Hale on 09-22-2024 MCHC (RBC) [Mass/Vol] 33.7 g/dL 32-36 [facility] Mean platelet volume determi nationOrdered By: Kayy Hale on 09-22-2024 Platelet mean volume (Bld) [Entitic vol] 10.0 fL 6.2-12.0 [facility] Microscopic analysis of urin e for red blood cells (RBC)Ordered By: Kayy Hale on 09-22-2024 Microscopic analysis of urine for red blood cells (RBC) 0 SEEN /hpf 0-5 [facility] Monocyte percentageOrdered B y: Kayy Hale on 09-22-2024 Monocytes/100 WBC (Bld) 7.2 % 0-10 [facility] Mucus LM Ql (Urine sed)Order ed By: Kayy Hale on 09-22-2024 Mucus Ql (Urine sed) 0 SEEN /hpf [facility] Neutrophil percentageOrdered By: Kayy Hale on 09-22-2024 Neutrophils/100 WBC (Bld) 51.4 % 47-70 [facility] Nitrite Test strip Ql (U)Ord ered By: Kayy Hale on 09-22-2024 Nitrite Ql (U) Negative Negative [facility] Nucleated red blood cell per centageOrdered By: Kayy Hale on 09-22-2024 Nucleated RBC/100 WBC (Bld) [Ratio] 0 % 0-5 [facility] Platelet countOrdered By: Heidi Hale on 09-22-2024 Platelets (Bld) [#/Vol] 284 10*3/uL 150-450 [facility] Potassium measurement (mass/ volume)Ordered By: Kayy Hale on 09-22-2024 Potassium (Unsp spec) [Mass/Vol] 4.0 mmol/L 3.3-5.1 [facility] Comment on above: Hemolysis present, R esults could be affected. Protein Test strip Ql (U)Ord ered By: Kayy Hale on 09-22-2024 Protein Ql (U) 15 mg/dl High Negative [facility] RBC Auto (Bld) [#/Vol]Ordere d By: Kyay Hale on 09-22-2024 RBC (Bld) [#/Vol] 4.39 10*6/uL 4.2-5.4 [facility] Serum creatinine measurement (mass/volume)Ordered By: Kayy Hale on 09-22-2024 Creatinine [Mass/Vol] 1.02 mg/dL 0.70-1.20 [facility] Serum globulin measurementOr dered By: Kayy Hale on 09-22-2024 Globulin (S) [Mass/Vol] 3.0 g/dL 2.2-4.2 [facility] Serum glucose measurement (m ass/volume)Ordered By: Kayy Hale on 09-22-2024 Glucose [Mass/Vol] 111 mg/dL High 70-99 [facility] Serum or plasma alanine fan otransferase (ALT) measurementOrdered By: Kayy Hale on 09-22-2024 ALT [Catalytic activity/Vol] 17 U/L <35 [facility] Serum or plasma albumin fritz urement (mass/volume)Ordered By: Kayy Hale on 09-22-2024 Albumin [Mass/Vol] 4.2 g/dL 3.5-5.0 [facility] Serum or plasma albumin/glob ulin mass ratioOrdered By: Kayy Hale on 09-22-2024 Albumin/Globulin [Mass ratio] 1.4 {ratio} 0.9-2.4 [facility] Serum or plasma alkaline jacques sphatase measurementOrdered By: Kayy Hale on 09-22-2024 ALP [Catalytic activity/Vol] 80 U/L 35-104 [facility] Serum or plasma calcium fritz urement (mass/volume)Ordered By: Kayy Hale 09-22-2024 Calcium [Mass/Vol] 8.9 mg/dL 7.6-11.0 [facility] Serum or plasma ethanol fritz urement (mass/volume)Ordered By: Kayy Hale on 09-22-2024 Ethanol [Mass/Vol] mg/dL <10.1 [facility] Comment on above: This test is for med ical purposes only. The legal definition of intoxication varies according to local law. Serum or plasma urea nitroge n measurement (mass/volume)Ordered By: Kayy Hale on 09-22-2024 Urea nitrogen [Mass/Vol] 19 mg/dL 4-19 [facility] Sodium levelOrdered By: Kayy Hale 09-22-2024 Sodium [Moles/Vol] 139 mmol/L 133-145 [facility] Squamous epithelial cells de tection in urine sediment by light microscopyOrdered By: Kayy Hale 09-22-2024 Epithelial cells.squamous LM Ql (Urine sed) 0-5 SEEN /hpf 5-10 [facility] Total proteinOrdered By: Dulce Hale on 09-22-2024 Protein [Mass/Vol] 7.2 g/dL 5.9-8.4 [facility] Urine clarityOrdered By: Dulce Hale on 09-22-2024 Clarity (U) Clear Clear [facility] Urine color determinationOrd ered By: Kayy Hale on 09-22-2024 Color (U) Yellow Yellow [facility] Urine glucose detectionOrder ed By: Kayy Hale on 09-22-2024 Glucose Ql (U) Normal mg/dl Normal [facility] Urine leukocyte esterase det ection by dipstickOrdered By: Kayy Hale on 09-22-2024 Leukocyte esterase Test strip Ql (U) Negative Negative [facility] Urine pHOrdered By: Kayy tomas on 09-22-2024 pH (U) 6.0 [pH] 5.0 - 8.0 [facility] Urine sediment bacteria coun t by microscopy (number/high power field)Ordered By: Kayy Hale on 09-22-2024 Bacteria LM.HPF (Urine sed) [#/Area] 0 /[HPF] None Seen [facility] Urine specific gravity measu rementOrdered By: Kayy Hale on 09-22-2024 Specific gravity (U) [Rel density] 1.015 1.002-1.030 [facility] Urine urobilinogen measureme ntOrdered By: Kayy Hale on 09-22-2024 Urobilinogen Ql (U) Normal mg/dl Normal [facility] White blood cell (WBC) count Ordered By: Kayy Hale on 09-22-2024 WBC (Bld) [#/Vol] 7.6 10*3/uL 4.4-11.0 [facility] White blood cell countOrdere d By: Kayy Hale on 09-22-2024 White blood cell count 0 SEEN /hpf 0-5 [facility] Gastroenterology Visit Repor ton 08-30-2024 Gastroenterology Visit Report [facility] Gastroenterology [address] [place] [address] OFFICE VISIT Date of Service: 08/30/24 MR#: [id number] Acct: [id number] Name: BRENNAN MONTEJO Rep #: [id number] : 1970 Provider: AMMY Ribeiro Age/Sex: 53/F Location: [facility] Status: Signed Intake Vital Signs 12/25/21 05:35 Height 5 ft 3 in Intake Visit Reasons: CHRONIC ATROPHIC GASTRITIS W/O BLEEDING Chief Complaint: heartburn Allergies escitalopram (From Lexapro) Allergy (Intermediate, Verified 09/17/22 13:35) twitching/nervous feeling propranolol Adverse Reaction (Verified 09/17/22 13:35) Nausea Medications ???Medication ???Instructions ???Recorded ???Confirmed ???Type multivitamin 1 cap PO DAILY 06/13/18 08/30/24 H istory thyroid (pork) 180 mg tablet 120 mg PO DAILY 07/29/21 08/30/24 History ([place] Thyroid) ibuprofen 600 mg tablet 600 mg PO Q6H PRN fever or pain 08/30/24 Rx #20 tabs celecoxib 200 mg capsule 200 mg PO QDAY 08/30/24 08/30/24 H istory famotidine 40 mg tablet 40 mg PO QHS 08/30/24 08/30/24 His tory pantoprazole 40 mg tablet,delayed 40 mg PO QDAY 08/30/24 08/30/24 H istory release sertraline 50 mg tablet 100 mg PO DAILY 08/30/24 08/30/24 History Nurse's Note: OV 08/30/24 Pt here to establish care with [facility]. Pt reports nausea, diarrhea constipation, abdominal pain, gas, and bloating. Pt takes pantoprazole and famotidine daily. [facility] Medical History Allergies Arthritis Back problem Carpal tunnel syndrome Depression with anxiety Frequent headaches Goiter Hearing problem Heart valve problem History of gallstones Hx of migraines Hypothyroidism Lymphocytic thyroiditis ( 06/25/18) Multinodular goiter Obesity Thyroid disease Thyroid nodule Thyromegaly Vitamin D deficiency Surgical History History of laparoscopic cholecystectomy History of tonsillectomy History of tubal ligation history ORIF right ankle S/P fine needle aspiration ( 06/25/18) Family History Grandmother Cancer Throat cancer Heart disease Thyroid disorder Grandfather Cancer Lung cancer Stomach cancer Mother Heart disease Thyroid disorder Myocardial infarction Hypertension Father Diabetes High cholesterol Other Alcohol abuse Social History Smoking Status: Never smoker alcohol intake: current alcohol intake frequency: 0-2 drinks per day substance use type: does not use HPI HPI Chief Complaint: heartburn Details: BRENNAN MONTEJO, is a 53 F who presents to the office today for establishment with [facility]. Pt here today for changes in her bowel movements over the past 2-3 months. She has had a 15 lbs unintentional weight loss over this time. She feels full quickly and will get nausea. She has some mild heartburn. PCP provider did start her on pantoprazole and famotidine which she believes has helped some. She has constipation alternating with loose stools. SHe will not have a bm for 3-4 days and then have loose stools. She denies any solid stools. No blood in her stool. Last colonoscopy was in 2016 with normal findings. She has never had an EGD before. Denies family hx of colon cancer. Stool testing and blood work with her PCP was normal. ROS Const Constitutional: Positive for fatigue and weight change; No fever(s) ENT ENT: No difficulty swallowing Gastro GI: Positive for abdominal pain, bloating, change in bowel habits, constipation, diarrhea, heartburn, excessive flatus and nausea/dyspepsia; No belching, change in stool character, coffee ground emesis, cramping, difficulty swallowing, feeling full early, incontinent of stools, Vomiting blood/hematemesis, Blood in stool, loose stools, Black,tarry stools, pain with swallowing, vomiting or other Musc Musculoskeletal: Positive for Arthritis; No joint pain Skin Skin: No yellowing of the eye or itchy eyes Psych Psychiatric: Positive for anxiety and No depression Endo Endocrine: Positive for fatigue and weight change Aller/Imm Allergy/Immunologic : No itchy eyes Agusto/Lymp Hematologic/Lymphat ic: Positive for easy bruising; No easy bleeding Exam Const General: cooperative, healthy appearing and comfortable Nutritional Appearance: average body habitus Orientation: alert HENMT Head: normal to inspection Eyes General: appearance normal, both eyes and all related structures Neck Neck: normal visual inspection Chest Chest palpation inspection: normal inspection of the chest Resp Effort Inspection: normal respiratory effort Cardio Rate: regular rate Rhythm: regular rhythm GI Inspection: pineda (more content not included)... Normal [facility] XR UPPER GIon 08-03-2024 XR UPPER GI ORIGINAL HISTORY: Esophagitis COMPARISON: No FLUOROSCOPY TIME: 137 seconds FLUOROSCOPY IMAGES: 97 FINDINGS: The esophagus is normal in caliber, without filling defect or extrinsic impingement. There are mild tertiary contractions. No mucosal abnormalities are seen. There is a small hiatal hernia. No gastroesophageal reflux is demonstrated. The stomach is normal in position and morphology. Peristalsis is within normal limits. The fold pattern appears at least mildly atrophic. The duodenal bulb is grossly unremarkable. The ligament of Treitz is in the normal anatomic position. IMPRESSION: Small hiatal hernia. At least mildly atrophic gastric fold pattern, suggestive of atrophic gastritis Interpreted by: Kaila Lazo MD Preliminary Report By: Kaila Lazo MD Electronically signed By Kaila Lazo MD Dictated Date: 08/03/2024 2:54:35 PM Prelim Date: 08/03/2024 2:59:07 PM Sign Date: 08/03/2024 2:59:07 PM Ordering Provider: ADAMARIS KIMBROUGH Interpreted by: Kaila Lazo MD Preliminary Report By: Kaila Lazo MD Electronically signed By Kaila Lazo MD Dictated Date: 08/03/2024 2:54:35 PM Prelim Date: 08/03/2024 2:59:07 PM Sign Date: 08/03/2024 2:59:07 PM Ordering Provider: ADAMARIS KIMBROUGH Normal [facility] ENDOon 07-19-2024 TTG Ab (IgA) <4.0 Normal <=3.9 [facility] Comment on above: Result Comment: Mary ctive 08/31/2022: Evaluation of Transglutaminase Ab (IgA) results: Negative: Less than 4.0 Weak positive: 4.0 to 10.0 Positive: Greater than 10.0 Transglutaminase Ab is present in approximately 95% to 100% of patients with celiac disease and 80% of patients with dermatitis herpetiformis. The antibody is rarely found in other conditions. Transglutaminase Ab levels will decrease or increase depending on the removal or reintroduction of gluten into the diet. Patients who are IgA deficient develop celiac disease more frequently than individuals who have an intact IgA system. Therefore, gliadin and transglutaminase IgA antibodies may be absent in patients with celiac disease. IgG antibodies to gliadin are especially helpful in IgA deficient patients. These test results were obtained with the [facility] QUANTA Lite R-tTG IgA GERA. R-tTG IgA values obtained with different manufacturers' assay methods may not be used interchangeably. Performed By: #### H P, ENDO, GLIAD ####[place] [address]#### CMP, CRP, CBC, FT4, ESR, ANEU, ADIFF, ENA1, TSH, VALENTINO, LIP, GFR ####[place] [address] [place] [id number] ENA1on 07-18-2024 Centromere <0.2 Normal <1.0 [facility] Comment on above: Result Comment: Anti -centromere antibody is used as in aid in diagnosis of systemic sclerosis. Clinical correlation is required. Test Methodology: Multiplex flow immunoassay. Performed By: [facility] [address] [place] [address] Tour Narrator: Adam Munoz III, M.D. CLIA#: [id number] Performed By: #### H P, ENDO, GLIAD ####[place] [address]#### CMP, CRP, CBC, FT4, ESR, ANEU, ADIFF, ENA1, TSH, VALENTINO, LIP, GFR ####[place] [address] [place] [id number] Centromere Ab Qualitative Negative Normal Negative [facility] Comment on above: Result Comment: Perf ormed By: [facility] [address] [place] [address] Tour Narrator: Adam Munoz III, M.D. CLIA#: [id number] Performed By: #### H P, ENDO, GLIAD ####[place] [address]#### CMP, CRP, CBC, FT4, ESR, ANEU, ADIFF, ENA1, TSH, VALENTINO, LIP, GFR ####[place] [address] [place] [address] Chromatin Ab Qualitative Negative Normal Negative [facility] Comment on above: Result Comment: Perf ormed By: [place] [address] Tour Narrator: Adam Munoz III, M.D. CLIA#: [id number] Performed By: #### H P, ENDO, GLIAD ####[place] [address]#### CMP, CRP, CBC, FT4, ESR, ANEU, ADIFF, ENA1, TSH, VALENTINO, LIP, GFR ####[place] [address] [place] [address] Chromatin Antibody <0.2 Normal <1.0 [facility] Comment on above: Result Comment: Test Methodology: Multiplex flow immunoassay. Anti-chromatin antibody is used as an aid in diagnosis of systemic lupus erythematosus. Clinical correlation is required. Test Methodology: Multiplex flow immunoassay. Performed By: [place] [address] Tour Narrator: Adam Munoz III, M.D. CLIA#: [id number] Performed By: #### H P, ENDO, GLIAD ####[place] [address]#### CMP, CRP, CBC, FT4, ESR, ANEU, ADIFF, ENA1, TSH, VALENTINO, LIP, GFR ####[place] [address] [place] [address] AYLIN 1 Antibody <0.2 Normal <1.0 [facility] Comment on above: Result Comment: Perf ormed By: [place] [address] Tour Narrator: Adam Munoz III, M.D. CLIA#: [id number] Performed By: #### H P, ENDO, GLIAD ####[place] [address]#### CMP, CRP, CBC, FT4, ESR, ANEU, ADIFF, ENA1, TSH, VALENTINO, LIP, GFR ####[place] [address] [place] [id number] AYLIN 1 Antibody Qual Negative Normal Negative [facility] Comment on above: Result Comment: Anti -AYLIN-1 antibody is used as an aid in diagnosis of polymyositis and dermatomyositis especially with pulmonary involvement. A negative result cannot rule out polymyositis or dermatomyositis. Clinical correlation is required. Test Methodology: Multiplex flow immunoassay. Performed By: [facility] [address] [place] [address] Tour Narrator: Adam Munoz III, M.D. CLIA#: [id number] Performed By: #### H P, ENDO, GLIAD ####[place] [address]#### CMP, CRP, CBC, FT4, ESR, ANEU, ADIFF, ENA1, TSH, VALENTINO, LIP, GFR ####[place] [address] Ribosomal CHIEF LIBRARIAN WORK WITH BLIND <0.2 Normal <1.0 [facility] Comment on above: Result Comment: Perf ormed By: [facility] [address] [place] [address] Tour Narrator: Adam Munoz III, M.D. CLIA#: [id number] Performed By: #### H P, ENDO, GLIAD ####[place] [address]#### CMP, CRP, CBC, FT4, ESR, ANEU, ADIFF, ENA1, TSH, VALENTINO, LIP, GFR ####[place] [address] [place] [id number] Ribosomal CHIEF LIBRARIAN WORK WITH BLIND Qualitative Negative Normal Negative [facility] Comment on above: Result Comment: Anti -Ribosomal RNA (Ribosomal P) antibody is used as an aid in diagnosis of systemic autoimmune diseases especially systemic lupus erythematosus and mixed connective tissue disease. Cross-reactivity with Anti-good antibody is not uncommon. Clinical correlation is required. Test Methodology: Multiplex flow immunoassay. Performed By: [facility] [address] [place], [place] [address] [place] [address] Tour Narrator: Adam Munoz III, M.D. CLIA#: [id number] Performed By: #### H P, ENDO, GLIAD ####[place] [address]#### CMP, CRP, CBC, FT4, ESR, ANEU, ADIFF, ENA1, TSH, VALENTINO, LIP, GFR ####[place] [address] [place] [id number] CHIEF LIBRARIAN WORK WITH BLIND Antibody 0.2 AI Normal <1.0 [facility] Comment on above: Result Comment: Anti -CHIEF LIBRARIAN WORK WITH BLIND antibody is used as an aid in diagnosis of systemic autoimmune diseases especially systemic lupus erythematosus and mixed connective tissue disease. Cross-reactivity with Anti-good antibody is not uncommon. Clinical correlation is required. Test Methodology: Multiplex flow immunoassay. Performed By: [place] [address] Tour Narrator: Adam Munoz III, M.D. CLIA#: [id number] Performed By: #### H P, ENDO, GLIAD ####[place] [address]#### CMP, CRP, CBC, FT4, ESR, ANEU, ADIFF, ENA1, TSH, VALENTINO, LIP, GFR ####[place] [address] [place] [address] CHIEF LIBRARIAN WORK WITH BLIND Antibody Qualitative Negative Normal Negative [facility] Comment on above: Result Comment: Perf ormed By: [place] [address] Tour Narrator: Adam Munzo III, M.D. CLIA#: [id number] Performed By: #### H P, ENDO, GLIAD ####[place] [address]#### CMP, CRP, CBC, FT4, ESR, ANEU, ADIFF, ENA1, TSH, VALENTINO, LIP, GFR ####[place] [address] [place] [id number] Scleroderma Ab, IgG Qualitative Negative Normal Negative [facility] Comment on above: Result Comment: Perf ormed By: [facility] [address] [place] [address] Tour Narrator: Adam Munoz III, M.D. CLIA#: [id number] Performed By: #### H P, ENDO, GLIAD ####[place] [address]#### CMP, CRP, CBC, FT4, ESR, ANEU, ADIFF, ENA1, TSH, VALENTINO, LIP, GFR ####[place] [address] [place] [address] Scleroderma IgG Ab <0.2 Normal <1.0 [facility] Comment on above: Result Comment: Scl- 70/Scleroderma antibody test is used as an aid in diagnosis of systemic sclerosis especially the diffuse cutaneous form. A negative result cannot rule out systemic sclerosis. The final interpretation should consider clinical picture and other test results such as anti-centromere antibody. Test Methodology: Multiplex flow immunoassay. Performed By: [facility] [address] [place] [address] Tour Narrator: Adam Munoz III, M.D. CLIA#: [id number] Performed By: #### H P, ENDO, GLIAD ####[place] [address]#### CMP, CRP, CBC, FT4, ESR, ANEU, ADIFF, ENA1, TSH, VALENTINO, LIP, GFR ####[place] [address] [place] [address] Sm Antibody <0.2 Normal <1.0 [facility] Comment on above: Result Comment: Perf ormed By: [place] [address] Tour Narrator: Adam Munoz III, M.D. CLIA#: [id number] Performed By: #### H P, ENDO, GLIAD ####[place] [address]#### CMP, CRP, CBC, FT4, ESR, ANEU, ADIFF, ENA1, TSH, VALENTINO, LIP, GFR ####[place] [address] [place] [address] Sm Antibody Qual Negative Normal Negative [facility] Comment on above: Result Comment: Anti -Sm (Good) antibody is used as an aid in diagnosis of systemic lupus erythematosus and its presence is associated with renal disease. A negative result cannot rule out systemic lupus erythematosus. Clinical correlation is required. Test Methodology: Multiplex flow immunoassay. Performed By: [facility] [address] [place] [address] Tour Narrator: Adam Munoz III, M.D. CLIA#: [id number] Performed By: #### H P, ENDO, GLIAD ####[place] [address]#### CMP, CRP, CBC, FT4, ESR, ANEU, ADIFF, ENA1, TSH, VALENTINO, LIP, GFR ####[place] [id number] SS-A Antibody <0.2 Normal <1.0 [facility] Comment on above: Result Comment: Test Methodology: Multiplex flow immunoassay. Anti-SSA (anti-Ro) antibody is used as an aid in diagnosis of a variety of systemic autoimmune diseases, Sjogren's syndrome among others. Clinical correlation is required. Test Methodology: Multiplex flow immunoassay. Performed By: [facility] [address] [place] [address] Tour Narrator: Adam Munoz III, M.D. CLIA#: [id number] Performed By: #### H P, ENDO, GLIAD ####[place] [address]#### CMP, CRP, CBC, FT4, ESR, ANEU, ADIFF, ENA1, TSH, VALENTINO, LIP, GFR ####[place] [id number] SS-B Antibody <0.2 Normal <1.0 [facility] Comment on above: Result Comment: Anti -SSB (anti-La) antibody is used as an aid in diagnosis of a variety of systemic autoimmune diseases, especially for Sjogren's syndrome and systemic lupus erythematosus. Clinical correlation is required. Test Methodology: Multiplex flow immunoassay. Performed By: [facility] [address] [place] [address] Tour Narrator: Adam Munoz III, M.D. CLIA#: [id number] Performed By: #### H P, ENDO, GLIAD ####[place] [address]#### CMP, CRP, CBC, FT4, ESR, ANEU, ADIFF, ENA1, TSH, VALENTINO, LIP, GFR ####[facility] [place] [phone] SSA Antibody Qualitative Negative Normal Negative [facility] Comment on above: Result Comment: Perf ormed By: [place] [address] Tour Narrator: Adam Munoz III, M.D. CLIA#: [id number] Performed By: #### H P, ENDO, GLIAD ####[place] [address]#### CMP, CRP, CBC, FT4, ESR, ANEU, ADIFF, ENA1, TSH, VALENTINO, LIP, GFR ####[facility] [place] [id number] SSB Antibody Qualitative Negative Normal Negative [facility] Comment on above: Result Comment: Perf ormed By: [place] [address] Tour Narrator: Adam Munoz III, M.D. CLIA#: [id number] Performed By: #### H P, ENDO, GLIAD ####[place] [address]#### CMP, CRP, CBC, FT4, ESR, ANEU, ADIFF, ENA1, TSH, VALENTINO, LIP, GFR ####[place] [address] [place] [id number] GLIADon 07-18-2024 Gliadin Ab IgA <20 Normal <=19 [facility] Comment on above: Result Comment: Glia din IgG and IgA Ab Interpretation (effective 01/03/07): Result Units Negative <20 Weak Positive 20-30 Moderate to Strong Positive >30 Both IgG and IgA antibodies to gliadin are present in most patients with celiac disease (CD). However, antibody to gliadin may be present in Crohn's disease, dermatitis herpetiformis or in subjects with no clinical evidence of intestinal disease. In healthy individuals with a family history of CD, the antibodies may precede the clinical onset of disease in approximately 25% of the subjects. Gliadin antibody levels will decrease or increase depending on the removal or reintroduction of gluten into the diet. Patients who are IgA deficient develop celiac disease more frequently than individuals who have an intact IgA system. Therefore, gliadin and transglutaminase IgA antibodies may be absent in patients with celiac disease. IgG antibodies to gliadin are especially helpful in IgA deficient patients. A negative result indicates no gliadin antibody or levels below the negative cut-off of the assay. Results of this assay should be used in conjunction with clinical findings and other serological tests. These test results were obtained with the [facility] QUANTA Lite Gliadin IgG II and Gliadin IgA II. Gliadin values obtained with different manufacturers' assay methods may not be used interchangeably. Performed By: #### H P, ENDO, GLIAD ####[place] [id number] [place] [address]#### CMP, CRP, CBC, FT4, ESR, ANEU, ADIFF, ENA1, TSH, VALENTINO, LIP, GFR ####[place] [address] [place], [place] [address] Gliadin Ab IgG <20 Normal <=19 [facility] Comment on above: Result Comment: Glia din IgG and IgA Ab Interpretation (effective 01/03/07): Result Units Negative <20 Weak Positive 20-30 Moderate to Strong Positive >30 Both IgG and IgA antibodies to gliadin are present in most patients with celiac disease (CD). However, antibody to gliadin may be present in Crohn's disease, dermatitis herpetiformis or in subjects with no clinical evidence of intestinal disease. In healthy individuals with a family history of CD, the antibodies may precede the clinical onset of disease in approximately 25% of the subjects. Gliadin antibody levels will decrease or increase depending on the removal or reintroduction of gluten into the diet. Patients who are IgA deficient develop celiac disease more frequently than individuals who have an intact IgA system. Therefore, gliadin and transglutaminase IgA antibodies may be absent in patients with celiac disease. IgG antibodies to gliadin are especially helpful in IgA deficient patients. A negative result indicates no gliadin antibody or levels below the negative cut-off of the assay. Results of this assay should be used in conjunction with clinical findings and other serological tests. These test results were obtained with the [employer] QUANTA Lite Gliadin IgG II and Gliadin IgA II. Gliadin values obtained with different manufacturers' assay methods may not be used interchangeably. Performed By: #### H P, ENDO, GLIAD ####[place] [address]#### CMP, CRP, CBC, FT4, ESR, ANEU, ADIFF, ENA1, TSH, VALENTINO, LIP, GFR ####[address] [address] HPon 07-18-2024 H. Pylori IgG Negative Normal [facility] Comment on above: Result Comment: INTE RPRETATION OF H. PYLORI IGG BY EIA: Negative No detectable antibodies to H. pylori. Positive H. pylori IgG antibody detected. Equivocal Equivocal for IgG antibodies to H. pylori. Repeat testing if still indicated. Performed By: #### H P, ENDO, GLIAD ####[place] [place] [address]#### CMP, CRP, CBC, FT4, ESR, ANEU, ADIFF, ENA1, TSH, VALENTINO, LIP, GFR ####[address] [address] .Auto Diffon 07-17-2024 Basophil, Absolute 0.1 10 3/mcL Normal 0.0-0.3 [facility] Comment on above: Performed By: #### H P, ENDO, GLIAD #### [place] [address] #### CMP, CRP, CBC, FT4, ESR, ANEU, ADIFF, ENA1, TSH, VALENTINO, LIP, GFR #### [address] [address] Basophils/100 WBC (Bld) 0.7 % Normal 0.0-2.5 [facility] Comment on above: Performed By: #### H P, ENDO, GLIAD #### [place] [address] #### CMP, CRP, CBC, FT4, ESR, ANEU, ADIFF, ENA1, TSH, VALENTINO, LIP, GFR #### [address] [address] Eosinophil, Absolute 0.2 10 3/mcL Normal 0.0-0.7 [facility] Comment on above: Performed By: #### H P, ENDO, GLIAD #### [place] [address] #### CMP, CRP, CBC, FT4, ESR, ANEU, ADIFF, ENA1, TSH, VALENTINO, LIP, GFR #### [address] [address] Eosinophils/100 WBC (Bld) 2.4 % Normal 0.0-6.0 [facility] Comment on above: Performed By: #### H P, ENDO, GLIAD #### [place] [address] #### CMP, CRP, CBC, FT4, ESR, ANEU, ADIFF, ENA1, TSH, VALENTINO, LIP, GFR #### [address] [address] Lymphocyte, Absolute 3.3 10 3/mcL Normal 0.9-4.3 [facility] Comment on above: Performed By: #### H P, ENDO, GLIAD #### [place] [address] #### CMP, CRP, CBC, FT4, ESR, ANEU, ADIFF, ENA1, TSH, VALENTINO, LIP, GFR #### [address] [address] Lymphocytes/100 WBC (Bld) 41.6 % High 20.0-40.0 [facility] Comment on above: Performed By: #### H P, ENDO, GLIAD #### [place] [address] #### CMP, CRP, CBC, FT4, ESR, ANEU, ADIFF, ENA1, TSH, VALENTINO, LIP, GFR #### [address] [address] Monocyte, Absolute 0.6 10 3/mcL Normal 0.1-1.4 [facility] Comment on above: Performed By: #### H P, ENDO, GLIAD #### [place] [address] #### CMP, CRP, CBC, FT4, ESR, ANEU, ADIFF, ENA1, TSH, VALENTINO, LIP, GFR #### [address] [address] Monocytes/100 WBC (Bld) 7.7 % Normal 2.0-13.0 [facility] Comment on above: Performed By: #### H P, ENDO, GLIAD #### [place] [address] #### CMP, CRP, CBC, FT4, ESR, ANEU, ADIFF, ENA1, TSH, VALENTINO, LIP, GFR #### [address] [address] Neutrophils/100 WBC (Bld) 47.6 % Low 50.0-75.0 [facility] Comment on above: Performed By: #### H P, ENDO, GLIAD #### [place] [address] #### CMP, CRP, CBC, FT4, ESR, ANEU, ADIFF, ENA1, TSH, VALENTINO, LIP, GFR #### [address] [address] .GFRon 07-17-2024 Estimated Glomerular Filtration Rate 80 ml/min/1.73sqm Normal [facility] Comment on above: Result Comment: Stages of Chronic Kidney Disease (CKD) Stage Description eGFR(ml/min/1.73 sq.m.) CKD 1 Normal kidney function or >=90 normal kindney function with possible kidney damage (ex. Proteinuria) CKD 2 Kidney damage with mild loss 60-89 of kidney function CKD 3a Mild to moderate loss of kidney 45-59 function CKD 3b Moderate to severe loss of 30-44 of kindey function CKD 4 Severe loss of kidney function 15-29 CKD 5 Kidney failure <15 Note: (go live 2024) the eGFR calculation was updated to the 2020 CKD-EPI creatinine equation without a race factor to calculate the eGFR results. Performed By: #### H P, ENDO, GLIAD ####[place] [address]#### CMP, CRP, CBC, FT4, ESR, ANEU, ADIFF, ENA1, TSH, VALENTINO, LIP, GFR ####[address] [address] .NEUABSon 07-17-2024 Neutrophil, Absolute 3.7 10 3/mcL Normal 2.3-8.1 [facility] Comment on above: Performed By: #### H P, ENDO, GLIAD #### [place] [address] #### CMP, CRP, CBC, FT4, ESR, ANEU, ADIFF, ENA1, TSH, VALENTINO, LIP, GFR #### [address] [address] AMY 07-17-2024 Amylase [Catalytic activity/Vol] 56 U/L Normal 25-115 [facility] Comment on above: Performed By: #### H P, ENDO, GLIAD #### [place] [address] #### CMP, CRP, CBC, FT4, ESR, ANEU, ADIFF, ENA1, TSH, VALENTINO, LIP, GFR #### [address] [address] [facility] 07-17-2024 Erythrocyte distribution width (RBC) [Ratio] 13.1 % Normal 11.5-15.5 [facility] Comment on above: Performed By: #### H P, ENDO, GLIAD #### [place] [address] #### CMP, CRP, CBC, FT4, ESR, ANEU, ADIFF, ENA1, TSH, VALENTINO, LIP, GFR #### [address] [address] Hematocrit (Bld) [Volume fraction] 40.3 % Normal 34.0-46.0 [facility] Comment on above: Performed By: #### H P, ENDO, GLIAD #### [place] [address] #### CMP, CRP, CBC, FT4, ESR, ANEU, ADIFF, ENA1, TSH, VALENTINO, LIP, GFR #### [address] [address] Hgb 13.9 G/dL Normal 12.0-16.0 [facility] Comment on above: Performed By: #### H P, ENDO, GLIAD #### [place] [address] #### CMP, CRP, CBC, FT4, ESR, ANEU, ADIFF, ENA1, TSH, VALENTINO, LIP, GFR #### [address] [address] MCH (RBC) [Entitic mass] 30.6 pg Normal 27.0-33.0 [facility] Comment on above: Performed By: #### H P, ENDO, GLIAD #### [place] [address] #### CMP, CRP, CBC, FT4, ESR, ANEU, ADIFF, ENA1, TSH, VALENTINO, LIP, GFR #### [address] [address] MCHC 34.4 G/dL Normal 32.0-36.0 [facility] Comment on above: Performed By: #### H P, ENDO, GLIAD #### [place] [address] #### CMP, CRP, CBC, FT4, ESR, ANEU, ADIFF, ENA1, TSH, VALENTINO, LIP, GFR #### [address] [address] MCV (RBC) [Entitic vol] 88.9 fL Normal 80.0-99.0 [facility] Comment on above: Performed By: #### H P, ENDO, GLIAD #### [place] [address] #### CMP, CRP, CBC, FT4, ESR, ANEU, ADIFF, ENA1, TSH, VALENTINO, LIP, GFR #### [address] [address] Platelet 329 10 3/mcL Normal 150-450 [facility] Comment on above: Performed By: #### H P, ENDO, GLIAD #### [address] [address] #### CMP, CRP, CBC, FT4, ESR, ANEU, ADIFF, ENA1, TSH, VALENTINO, LIP, GFR #### [address] [address] Platelet mean volume (Bld) [Entitic vol] 7.7 fL Normal 6.6-10.5 [facility] Comment on above: Performed By: #### H P, ENDO, GLIAD #### [place] [address] #### CMP, CRP, CBC, FT4, ESR, ANEU, ADIFF, ENA1, TSH, VALENTINO, LIP, GFR #### [address] [address] RBC 4.54 10 6/mcL Normal 4.10-5.30 [facility] Comment on above: Performed By: #### H P, ENDO, GLIAD #### [place] [address] #### CMP, CRP, CBC, FT4, ESR, ANEU, ADIFF, ENA1, TSH, VALENTINO, LIP, GFR #### [address] [address] WBC 7.8 10 3/mcL Normal 4.5-10.8 [facility] Comment on above: Performed By: #### H P, ENDO, GLIAD #### [place] [address] #### CMP, CRP, CBC, FT4, ESR, ANEU, ADIFF, ENA1, TSH, VALENTINO, LIP, GFR #### [address] [address] CDIFPCRon 07-17-2024 Clostridium difficile PCR Negative Normal Negative [facility] Comment on above: Performed By: #### C DIFPCR ####[address] [address] Clostridium difficile PCR Int See Below Normal [facility] Comment on above: Result Comment: Clinical Interpretation: No tcdB gene DNA detected. Negative test results may occur from improper collection, handling or storage of specimen, technical error, or extremely low levels of target below the limit of detection of the assay. Performed By: #### C DIFPCR ####[facility] [place], [place] [address] CMPon 07-17-2024 Albumin Level 3.9 G/dL Normal 3.5-5.0 [facility] Comment on above: Performed By: #### H P, ENDO, GLIAD ####[place] [address]#### CMP, CRP, CBC, FT4, ESR, ANEU, ADIFF, ENA1, TSH, VALENTINO, LIP, GFR ####[place] [address] [place], [place] [address] Albumin/Globulin [Mass ratio] 1.1 {ratio} Normal 1.1-2.5 [facility] Comment on above: Performed By: #### H P, ENDO, GLIAD ####[place] [address]#### CMP, CRP, CBC, FT4, ESR, ANEU, ADIFF, ENA1, TSH, VALENTINO, LIP, GFR ####[place] [address] [place], [place] [address] ALP [Catalytic activity/Vol] 77 U/L Normal 40-135 [facility] Comment on above: Performed By: #### H P, ENDO, GLIAD ####[place] [address]#### CMP, CRP, CBC, FT4, ESR, ANEU, ADIFF, ENA1, TSH, VALENTINO, LIP, GFR ####[place] [address] [place], [place] [address] ALT [Catalytic activity/Vol] 20 U/L Normal 14-59 [facility] Comment on above: Performed By: #### H P, ENDO, GLIAD ####[place] [address]#### CMP, CRP, CBC, FT4, ESR, ANEU, ADIFF, ENA1, TSH, VALENTINO, LIP, GFR ####[place] [address] [place], [place] [address] AST [Catalytic activity/Vol] 10 U/L Normal 10-40 [facility] Comment on above: Performed By: #### H P, ENDO, GLIAD ####[place] [address]#### CMP, CRP, CBC, FT4, ESR, ANEU, ADIFF, ENA1, TSH, VALENTINO, LIP, GFR ####[place] [address] [place] [id number] Bili Total 0.4 mg/dL Normal 0.2-1.0 [facility] Comment on above: Result Comment: Use of this assay is not recommended for patients undergoing treatment with eltrombopag due to the potential for falsely elevated results. Performed By: #### H P, ENDO, GLIAD ####[place] [address]#### CMP, CRP, CBC, FT4, ESR, ANEU, ADIFF, ENA1, TSH, VALENTINO, LIP, GFR ####[place] [id number] BUN/Creatinine Ratio 14 ratio Normal 7-27 [facility] Comment on above: Performed By: #### H P, ENDO, GLIAD ####[place] [address]#### CMP, CRP, CBC, FT4, ESR, ANEU, ADIFF, ENA1, TSH, VALENTINO, LIP, GFR ####[place] [address] [place] [phone] Calcium [Mass/Vol] 9.0 mg/dL Normal 8.4-10.2 [facility] Comment on above: Performed By: #### H P, ENDO, GLIAD ####[place] [address]#### CMP, CRP, CBC, FT4, ESR, ANEU, ADIFF, ENA1, TSH, VALENTINO, LIP, GFR ####[place] [address] [place] [phone] Chloride [Moles/Vol] 102 mmol/L Normal 98-107 [facility] Comment on above: Performed By: #### H P, ENDO, GLIAD ####[place] [address]#### CMP, CRP, CBC, FT4, ESR, ANEU, ADIFF, ENA1, TSH, VALENTINO, LIP, GFR ####[address] [address] CO2 [Moles/Vol] 26 mmol/L Normal 22-29 [facility] Comment on above: Performed By: #### H P, ENDO, GLIAD ####[place] [address]#### CMP, CRP, CBC, FT4, ESR, ANEU, ADIFF, ENA1, TSH, VALENTINO, LIP, GFR ####[place] [address] [place] [address] Creatinine [Mass/Vol] 0.87 mg/dL Normal 0.51-0.95 [facility] Comment on above: Performed By: #### H P, ENDO, GLIAD ####[place] [address]#### CMP, CRP, CBC, FT4, ESR, ANEU, ADIFF, ENA1, TSH, VALENTINO, LIP, GFR ####[place] [address] Electrolyte Balance 11.0 mEq/L Normal 4.0-15.0 [facility] Comment on above: Performed By: #### H P, ENDO, GLIAD ####[place] [address]#### CMP, CRP, CBC, FT4, ESR, ANEU, ADIFF, ENA1, TSH, VALENTINO, LIP, GFR ####[place] [address] Globulin 3.4 G/dL Normal 2.7-4.4 [facility] Comment on above: Performed By: #### H P, ENDO, GLIAD ####[place] [address]#### CMP, CRP, CBC, FT4, ESR, ANEU, ADIFF, ENA1, TSH, VALENTINO, LIP, GFR ####[address] [address] Glucose [Mass/Vol] 85 mg/dL Normal 70-105 [facility] Comment on above: Performed By: #### H P, ENDO, GLIAD ####[place] [address]#### CMP, CRP, CBC, FT4, ESR, ANEU, ADIFF, ENA1, TSH, VALENTINO, LIP, GFR ####[address] [address] Potassium [Moles/Vol] 3.8 mmol/L Normal 3.5-5.1 [facility] Comment on above: Performed By: #### H P, ENDO, GLIAD ####[place] [address]#### CMP, CRP, CBC, FT4, ESR, ANEU, ADIFF, ENA1, TSH, VALENTINO, LIP, GFR ####[address] [address] Sodium [Moles/Vol] 139 mmol/L Normal 136-145 [facility] Comment on above: Performed By: #### H P, ENDO, GLIAD ####[place] [address]#### CMP, CRP, CBC, FT4, ESR, ANEU, ADIFF, ENA1, TSH, VALENTINO, LIP, GFR ####[address] [address] Total Protein 7.3 G/dL Normal 6.4-8.2 [facility] Comment on above: Performed By: #### H P, ENDO, GLIAD ####[place] [address]#### CMP, CRP, CBC, FT4, ESR, ANEU, ADIFF, ENA1, TSH, VALENTINO, LIP, GFR ####[address] [address] Urea nitrogen [Mass/Vol] 12 mg/dL Normal 7-18 [facility] Comment on above: Performed By: #### H P, ENDO, GLIAD ####[place] [address]#### CMP, CRP, CBC, FT4, ESR, ANEU, ADIFF, ENA1, TSH, VALENTINO, LIP, GFR ####[address] [address] CRPon 07-17-2024 C-Reactive Protein 0.1 mg/dL Normal 0.0-0.3 [facility] Comment on above: Performed By: #### H P, ENDO, GLIAD #### [place] [address] #### CMP, CRP, CBC, FT4, ESR, ANEU, ADIFF, ENA1, TSH, VALENTINO, LIP, GFR #### [address] [address] ESRon 07-17-2024 Erythrocyte Sed Rate 8 mm/hr Normal 0-30 [facility] Comment on above: Performed By: #### H P, ENDO, GLIAD #### [place] [address] #### CMP, CRP, CBC, FT4, ESR, ANEU, ADIFF, ENA1, TSH, VALENTINO, LIP, GFR #### [address] [address] FT4on 07-17-2024 Free T4 [Mass/Vol] 0.56 ng/dL Low 0.76-1.46 [facility] Comment on above: Performed By: #### H P, ENDO, GLIAD ####[place] [address]#### CMP, CRP, CBC, FT4, ESR, ANEU, ADIFF, ENA1, TSH, VALENTINO, LIP, GFR ####[address] [address] LABORATORYOrdered By: Benjamín durán on 07-17-2024 Clostridium difficile PCR Negative (07/17/24 4:01 PM) Normal Negative AO Auto Urine SS Clostridium difficile PCR Int See Below 1 *NA* (07/17/24 4:01 PM) Invalid Interpretation Code AO Auto Urine SS Comment on above: Result Comment: Clinical Interpretation: No tcdB gene DNA detected. Negative test results may occur from improper collection, handling or storage of specimen, technical error, or extremely low levels of target below the limit of detection of the assay. LABORATORYOrdered By: SYSTEM SYSTEM on 07-17-2024 Albumin BCP dye [Mass/Vol] 3.9 G/dL Normal 3.5 - 5.0 G/dL AO ADM SS Albumin/Globulin [Mass ratio] 1.1 {ratio} Normal 1.1 - 2.5 ratio AO ADM SS ALP [Catalytic activity/Vol] 77 U/L Normal 40 - 135 U/L AO ADM SS ALT With P-5'-P [Catalytic activity/Vol] 20 U/L Normal 14 - 59 U/L AO ADM SS Amylase [Catalytic activity/Vol] 56 U/L Normal 25 - 115 U/L AO ADM SS AST With P-5'-P [Catalytic activity/Vol] 10 U/L Normal 10 - 40 U/L AO ADM SS Basophils (Bld) [#/Vol] 0.1 103/mcL Normal 0.0 - 0.3 10^3/mcL AO Workflow SS Basophils/100 WBC (Bld) 0.7 % Normal 0.0 - 2.5 % AO Workflow SS Bilirubin [Mass/Vol] 0.4 mg/dL Normal 0.2 - 1 .0 mg/dL AO ADM SS Comment on above: Interpretive Data: U se of this assay is not recommended for patients undergoing treatment with eltrombopag due to the potential for falsely elevated results. Calcium [Mass/Vol] 9.0 mg/dL Normal 8.4 - 10. 2 mg/dL AO ADM SS Chloride [Moles/Vol] 102 mmol/L Normal 98 - 10 7 mmol/L AO ADM SS CO2 [Moles/Vol] 26 mmol/L Normal 22 - 29 mmol/L AO ADM SS Creatinine [Mass/Vol] 0.87 mg/dL Normal 0.51 - 0.95 mg/dL AO ADM SS CRP [Mass/Vol] 0.1 mg/dL Normal 0.0 - 0.3 mg/dL AO ADM SS Electrolyte Balance 11.0 mEq/L Normal 4.0 - 15 .0 mEq/L AO ADM SS Eosinophil, Absolute 0.2 103/mcL Normal 0.0 - 0 .7 10^3/mcL AO Workflow SS Eosinophils/100 WBC (Bld) 2.4 % Normal 0.0 - 6.0 % AO Workflow SS Erythrocyte distribution width (RBC) [Ratio] 13.1 % Normal 11.5 - 15.5 % AO Workflow SS Estimated Glomerular Filtration Rate 80 ml/min/1.73sqm Invalid Interpretation Code AO Chemistry S Comment on above: Interpretive Data: Stages of Chronic Kidney Disease (CKD) Stage Description eGFR(ml/min/1.73 sq.m.) CKD 1 Normal kidney function or >=90 normal kindney function with possible kidney damage (ex. Proteinuria) CKD 2 Kidney damage with mild loss 60-89 of kidney function CKD 3a Mild to moderate loss of kidney 45-59 function CKD 3b Moderate to severe loss of 30-44 of kindey function CKD 4 Severe loss of kidney function 15-29 CKD 5 Kidney failure <15 Note: (go live 2024) the eGFR calculation was updated to the 2020 CKD-EPI creatinine equation without a race factor to calculate the eGFR results. Free T4 [Mass/Vol] 0.56 ng/dL Low 0.76 - 1. 46 ng/dL AO ADM SS Globulin 3.4 G/dL Normal 2.7 - 4.4 G/dL AO ADM SS Glucose [Mass/Vol] 85 mg/dL Normal 70 - 105 mg/dL AO ADM SS Hematocrit (Bld) [Volume fraction] 40.3 % Normal 34.0 - 46.0 % AO Workflow SS Hemoglobin (Bld) [Mass/Vol] 13.9 G/dL Normal 12.0 - 16.0 G/dL AO Workflow SS Lipase [Catalytic activity/Vol] 28 U/L Normal 16 - 77 U/L AO ADM SS Lymphocytes (Bld) [#/Vol] 3.3 103/mcL Normal 0.9 - 4.3 10^3/mcL AO Workflow SS Lymphocytes/100 WBC (Bld) 41.6 % High 20.0 - 40.0 % AO Workflow SS MCH (RBC) [Entitic mass] 30.6 pg Normal 27. 0 - 33.0 pg AO Workflow SS MCHC 34.4 G/dL Normal 32.0 - 36.0 G/dL AO Workflow SS MCV (RBC) [Entitic vol] 88.9 fL Normal 80.0 - 99.0 fL AO Workflow SS Monocytes (Bld) [#/Vol] 0.6 103/mcL Normal 0.1 - 1.4 10^3/mcL AO Workflow SS Monocytes/100 WBC (Bld) 7.7 % Normal 2.0 - 13.0 % AO Workflow SS Neutrophils (Bld) [#/Vol] 3.7 103/mcL Normal 2.3 - 8.1 10^3/mcL AO Workflow SS Neutrophils/100 WBC (Bld) 47.6 % Low 50.0 - 75.0 % AO Workflow SS Platelet mean volume (Bld) [Entitic vol] 7.7 fL Normal 6.6 - 10.5 fL AO Workflow SS Platelets (Bld) [#/Vol] 329 103/mcL Normal 150 - 450 10^3/mcL AO Workflow SS Potassium [Moles/Vol] 3.8 mmol/L Normal 3.5 - 5.1 mmol/L AO ADM SS Protein [Mass/Vol] 7.3 G/dL Normal 6.4 - 8.2 G/dL AO ADM SS RBC (Bld) [#/Vol] 4.54 106/mcL Normal 4.10 - 5.3 0 10^6/mcL AO Workflow SS Sodium [Moles/Vol] 139 mmol/L Normal 136 - 145 mmol/L AO ADM SS TSH Qn 2.79 m[IU]/L Normal 0.36 - 3.74 mcIU/mL AO ADM SS Urea nitrogen [Mass/Vol] 12 mg/dL Normal 7 - 18 mg/d L AO ADM SS Urea nitrogen/Creatinine [Mass ratio] 14 ratio Normal 7 - 27 ratio AO ADM SS WBC (Bld) [#/Vol] 7.8 103/mcL Normal 4.5 - 10.8 10^3/mcL AO Workflow SS LABORATORYOrdered By: Oneyda Echavarria on 07-17-2024 ESR Photometric method (Bld) [Velocity] 8 mm/hr Normal 0 - 30 mm/hr AO Man Heme SS LIPon 07-17-2024 Lipase Level 28 U/L Normal 16-77 [facility] Comment on above: Performed By: #### H P, ENDO, GLIAD #### [place] [address] #### CMP, CRP, CBC, FT4, ESR, ANEU, ADIFF, ENA1, TSH, VALENTINO, LIP, GFR #### [facility] [address] [place], [place] [address] No Panel Informationon 07-17 Fecal Leukocytes Microscopy: Fecal Leukocytes Absent From our data, approximately 50% of enteroinvasive bacterial pathogens will not be associated with stool WBC's. [facility] TSHon 07-17-2024 TSH Qn 2.79 m[IU]/L Normal 0.36-3.74 [facility] Comment on above: Performed By: #### H P, ENDO, GLIAD ####[place] [address]#### CMP, CRP, CBC, FT4, ESR, ANEU, ADIFF, ENA1, TSH, VALENTINO, LIP, GFR ####[facility] [place], [place] [address] US PELVIS NON-OB W/TRANSVAGI NALon 12-12-2023 US PELVIS NON-OB W/TRANSVAGINAL ORIGINAL EXAMINATION: TRANSVAGINAL PELVIC [id number]/1/2024 4:43 pm Ultrasound Pelvis: Transabdominal and transvaginal study COMPARISON: None TECHNIQUE: This report is based on interpretation of permanently recorded ultrasound images. HISTORY: ORDERING SYSTEM PROVIDED HISTORY: Reason for Exam: POST MENAPAUSAL BLEEDING, patient is reportedly on eggs all Lalitha hormone therapy FINDINGS: The uterus is 8.3 x 3.5 x 5.3 cms. . No myometrial mass lesion is seen. The endometrial double wall thickness is 7.4 mm. No endometrial mass is seen. There is some blood flow within the fundal endometrium. Right ovary 2.7 x 1.7 x 1.5 cm. This is only seen transabdominally. There is blood flow in the ovary. Left ovary: 2.7 x 2.4 x 3.3 cm. No suspicious ovarian lesion. There is blood flow in the ovary.. No significant pelvic free fluid. IMPRESSION: Endometrial thickness of 7.4 mm should be correlated with menopausal status and taking into account exogenous hormone therapy. 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 2D standard and 3D tomosynthesis combination imaging performed. Current study was also evaluated with a Computer Aided Detection (CAD) system. COMPARISON: May 20, 2018, July 15, 2015. HISTORY: ORDERING SYSTEM PROVIDED HISTORY: Reason for Exam: Mastodynia FINDINGS: BREAST DENSITY: Scattered fibroglandular tissue No significant masses, calcifications, or other findings. IMPRESSION: No mammographic findings to correlate with the patient's pain. Clinical follow up is recommended. The patient may return to annual mammographic screening. BIRADS: MAMMOGRAM BI-RADS: 2: Benign finding RECALL: return to screening RECALL TYPE: mammo LETTER SENT: Normal BI-RADS 1 and 2 Interpreted by: Annita Smith Preliminary Report By: Annita Smith Electronically signed By Annita Smith Dictated Date: 12/22/2022 2:06:14 PM Prelim Date: 01/04/2023 10:28:54 AM Sign Date: 01/04/2023 10:28:54 AM Ordering Provider: JUDITH LITTLE Riveter Pneumatic: MARCEL HER RT(R)(M)(CT) [employer] letter sent: Normal BI-RADS 1 and 2 Mammogram BI-RADS: 2 Benign Normal [facility] ([place]) LABORATORYOrdered By: Oneyda Echavarria on 05-24-2021 C-Reactive Protein mg/dL Invalid Interpretation Code 0.0 - 0.9 mg/dL AO Chemistry S Cholesterol [Mass/Vol] 199 mg/dL Invalid Interpretation Code 0 - 200 mg/dL AO ADM SS Cholesterol in HDL [Mass/Vol] 67 mg/dL Invalid Interpretation Code 40 - 60 mg/dL AO ADM SS Cholesterol in LDL [Mass/Vol] 121 mg/dL Invalid Interpretation Code 0 - 130 mg/dL AO ADM SS ESR 15 minute reading (Bld) [Velocity] 10 mm/hr Invalid Interpretation Code 0 - 30 mm/hr AO Man Heme SS Free T4 [Mass/Vol] 0.65 ng/dL Invalid Interpretation Code 0.76 - 1.46 ng/dL AO ADM SS Glucose [Mass/Vol] 86 mg/dL Invalid Interpretation Code 70 - 105 mg/dL AO ADM SS Triglyceride [Mass/Vol] 56 mg/dL Invalid Interpretation Code 0 - 150 mg/dL AO ADM SS TSH Qn 0.27 m[IU]/L Invalid Interpretation Code 0.36 - 3.74 mcIU/mL AO ADM SS Uric Acid Lvl 3.6 mg/dL Invalid Interpretation Code 2.6 - 6.2 mg/dL AO ADM SS LABORATORYOrdered By: [employer] SYSTEM on 05-24-2021 Streptolysin O Ab Qn 290.1 Int unit/mL Invalid Interpretation Code 25.0 - 250.0 Int unit/mL AH ADM SS Thyroglobulin Ab IA Qn 99 unit/mL Invalid Interpretation Code 15 - 60 unit/mL AH ADM SS TPO Ab IA Qn 9712 unit/mL Invalid Interpretation Code 0 - 60 unit/mL AH ADM SS LABORATORYOrdered By: Oneyda Vang on 05-13-2021 Albumin BCP dye [Mass/Vol] 3.9 G/dL Invalid Interpretation Code 3.5 - 5.0 G/dL AO ADM SS Albumin/Globulin [Mass ratio] 1.1 {ratio} Invalid Interpretation Code 1.1 - 2.5 ratio AO ADM SS ALP [Catalytic activity/Vol] 101 U/L Invalid Interpretation Code 40 - 135 U/L AO ADM SS ALT With P-5'-P [Catalytic activity/Vol] 35 U/L Invalid Interpretation Code 14 - 59 U/L AO ADM SS AST With P-5'-P [Catalytic activity/Vol] 22 U/L Invalid Interpretation Code 10 - 40 U/L AO ADM SS Basophil, Absolute 0.00 103/mcL Invalid Interpretation Code 0.00 - 0.19 10^3/mcL AO Auto Heme SS Basophils/100 WBC (Bld) 0.5 % Invalid Interpretation Code 0.0 - 2.5 % AO Auto Heme SS Bilirubin [Mass/Vol] 0.3 mg/dL Invalid Interpretation Code 0.2 - 1.0 mg/dL AO ADM SS Calcium [Mass/Vol] 9.6 mg/dL Invalid Interpretation Code 8.4 - 10.2 mg/dL AO ADM SS Chloride [Moles/Vol] 103 mmol/L Invalid Interpretation Code 98 - 107 mmol/L AO ADM SS CO2 [Moles/Vol] 27 mmol/L Invalid Interpretation Code 22 - 29 mmol/L AO ADM SS Creatinine [Mass/Vol] 0.71 mg/dL Invalid Interpretation Code 0.55 - 1.02 mg/dL AO ADM SS Electrolyte Balance 10.0 mEq/L Invalid Interpretation Code 4.0 - 15.0 mEq/L AO ADM SS Eosinophil, Absolute 0.30 103/mcL Invalid Interpretation Code 0.00 - 0.40 10^3/mcL AO Auto Heme SS Eosinophils/100 WBC (Bld) 3.3 % Invalid Interpretation Code 0.0 - 7.0 % AO Auto Heme SS Erythrocyte distribution width (RBC) [Ratio] 13.4 % Invalid Interpretation Code 11.5 - 14.5 % AO Auto Heme SS Free T3 [Mass/Vol] 3.95 pg/mL Invalid Interpretation Code 2.30 - 4.00 pg/mL AO ADM SS Free T4 [Mass/Vol] 0.80 ng/dL Invalid Interpretation Code 0.76 - 1.46 ng/dL AO ADM SS Globulin 3.6 G/dL Invalid Interpretation Code AO ADM SS Glucose [Mass/Vol] 82 mg/dL Invalid Interpretation Code 70 - 105 mg/dL AO ADM SS Hematocrit (Bld) [Volume fraction] 39.5 % Invalid Interpretation Code 37.0 - 47.0 % AO Auto Heme SS Hemoglobin (Bld) [Mass/Vol] 13.3 G/dL Invalid Interpretation Code 12.0 - 16.0 G/dL AO Auto Heme SS Lymphocyte, Absolute 3.70 103/mcL Invalid Interpretation Code 0.77 - 3.85 10^3/mcL AO Auto Heme SS Lymphocytes/100 WBC (Bld) 48.6 % Invalid Interpretation Code 10.0 - 50.0 % AO Auto Heme SS MCH (RBC) [Entitic mass] 29.4 pg Invalid Interpretation Code 27.0 - 31.2 pg AO Auto Heme SS MCHC (RBC) [Mass/Vol] 33.7 G/dL Invalid Interpretation Code 33.0 - 37.0 G/dL AO Auto Heme SS MCV (RBC) [Entitic vol] 87.3 fL Invalid Interpretation Code 80.0 - 94.0 fL AO Auto Heme SS Monocyte, Absolute 0.60 103/mcL Invalid Interpretation Code 0.15 - 1.00 10^3/mcL AO Auto Heme SS Monocytes/100 WBC (Bld) 8.6 % Invalid Interpretation Code 1.7 - 13.0 % AO Auto Heme SS Neutrophil, Absolute 3.00 103/mcL Invalid Interpretation Code 2.85 - 6.16 10^3/mcL AO Auto Heme SS Neutrophils/100 WBC (Bld) 39.0 % Invalid Interpretation Code 37.0 - 80.0 % AO Auto Heme SS Platelet mean volume (Bld) [Entitic vol] 8.7 fL Invalid Interpretation Code 7.4 - 10.4 fL AO Auto Heme SS Platelets (Bld) [#/Vol] 346 103/mcL Invalid Interpretation Code 130 - 400 10^3/mcL AO Auto Heme SS Potassium [Moles/Vol] 4.3 mmol/L Invalid Interpretation Code 3.5 - 5.1 mmol/L AO ADM SS Protein [Mass/Vol] 7.5 G/dL Invalid Interpretation Code 6.4 - 8.2 G/dL AO ADM SS RBC (Bld) [#/Vol] 4.53 106/mcL Invalid Interpretation Code 4.20 - 5.40 10^6/mcL AO Auto Heme SS Sodium [Moles/Vol] 140 mmol/L Invalid Interpretation Code 136 - 145 mmol/L AO ADM SS TSH Qn 0.10 m[IU]/L Invalid Interpretation Code 0.36 - 3.74 mcIU/mL AO ADM SS Urea nitrogen [Mass/Vol] 20 mg/dL Invalid Interpretation Code 7 - 18 mg/dL AO ADM SS Urea nitrogen/Creatinine [Mass ratio] 28 ratio Invalid Interpretation Code 7 - 27 ratio AO ADM SS WBC (Bld) [#/Vol] 7.60 103/mcL Invalid Interpretation Code 4.60 - 10.80 10^3/mcL AO Auto Heme SS LABORATORYOrdered By: SYSTEM SYSTEM on 05-13-2021 GFR 106 ml/min/1.73sqm Invalid Interpretation Code AO Chemistry S GFR Non- 87 ml/min/1.73sqm Inval id Interpretation Code AO Chemistry S CNCOon 07-10-2019 CNCO Letter Text [facility] CNPNon 07-10-2019 CNPN Telephone (NEURBA) ---- BRENNAN MONTEJO ([id number]) 1970 F Date Time Provider Department 07/10/19 JOHN CASTILLO JR During your visit today, we recorded the following information about you: Winston Harrington 07/10/2019 8:40 AM Signed No Show Documentation Brennan A Jason no showed for an appointment on 07/10/2019 with John Castillo MD at 8am. She was scheduled for New patient for Migraines. I called and spoke with the patient regarding her missed appointment. -COULD NOT CONTACT PATIENT Brennan stated the reason that she missed her appointment was because COULD NOT CONTACT PATIENT. Resources discussed/offered to patient: N/A No show determined to be fault of patient: Yes This is the patients first no show in the last 12 months. Patient was rescheduled for n/a. Letter mailed : Yes Is this the Third or Fourth No Show? No Winston Harrington July 10, 2019 8:32 AM Allergies As of Date: 07/10/2019 Noted Allergy Reaction environmental [Other] 06/17/2006 LEXAPRO (ESCITALOPRAM) 08/21/2006 8 - GI Upset Comments: Nausea, diarrhea in first few days, couldn't stay on Date Reviewed: 06/29/2019 Reviewed by: John Castillo Jr. - Fully Assessed Reason for Visit: Missed Appointment [1304] Prescriptions as of 07/10/2019 Sig: BENZONATATE 100 MG CAPSULE Take 1-2 capsules by mouth th* SERTRALINE 50 MG TABLET Take 1 tablet by mouth once d* LEVOTHYROXINE 100 MCG TABLET Take 1 tablet by mouth once d* CHOLECALCIFEROL (VITAMIN D3) * Take 1 capsule by mouth once * PROPRANOLOL 60 MG TABLET Take 60 mg by mouth three antoine* IRON (FERROUS SULFATE) ORAL Take 50 mg by mouth twice wendi* FLUOXETINE 20 MG CAPSULE Take 1 capsule by mouth once * Patient not taking: Reported on 05/13/2018 LEVOTHYROXINE 137 MCG TABLET Take 1 tablet by mouth daily * Patient not taking: Reported on 07/29/2018 ATENOLOL 50 MG TABLET Take 1 tablet by mouth once d* Patient not taking: Reported on 08/31/2017 * MULTI-VITAMIN ORAL Take by mouth. Problem List As Of Date 07/10/2019 Noted Resolved HYPOTHYROIDISM NOS [E03.9] More... Migraine [G43.909] ALLERGIC RHINITIS NOS [J30.9] More... ANXIETY STATE NOS [F41.1] 03/24/2007 More... OBESITY NOS [E66.9] 06/06/2007 More... Calcaneal spur [M77.30] 11/26/2011 Chest pain, atypical [R07.89] 06/19/2013 PVC's (premature ventricular contractions) [I49*06/19/2013 Family history of ischemic heart disease [Z82.4*06/19/2013 Encounter Status:Closed by WINSTON HARRINGTON on 07/10/19 [facility] PROGRESSon 07-10-2019 PROGRESS HNO ID: [id number] Author: John Castillo Jr. Service: ? Author Type: Physician Type: Progress Notes Filed: 07/10/2019 8:21 AM Note Text: NEW PATIENT (CONSULT) HISTORY AND PHYSICAL EXAM PRIMARY CARE PHYSICIAN: Bao Ruiz MD REASON FOR CONSULT: Headache REFERRING PHYSICIAN: Bao Ruiz, * CHIEF COMPLAINT: Headache With the current coronavirus outbreak, we want to minimize the risk of exposing patients to this illness. I have reviewed this patient's chart and, per patient's request for an opportunity to be seen without having to present to the office, feel appropriate that this appointment be made a virtual visit. For this virtual visit, the patient has been identified by name and (MRN and photo identification as well if available). 4 phone attempts and 2 Google Duo attempts between the time of 754 and 819 - No answer. NO SHOW [facility] Yael 06-15-2019 BRITNIN Telephone (KASSANDRA) ---- BRENNAN MONTEJO ([id number]) 1970 F Date Time Provider Department 06/15/19 JOHN CASTILLO JR During your visit today, we recorded the following information about you: Winston Harrington 06/15/2019 10:06 AM Signed Received neurology referral for migraines-please see scanned documents. Called patient to schedule: Left message for patient to call the office back to schedule appointment. Winston Harrington June 15, 2019 10:06 AM LULÚ Rainey 06/23/2019 12:18 PM Signed Appointment scheduled. LULÚ Rainey Allergies As of Date: 06/15/2019 Noted Allergy Reaction environmental [Other] 06/17/2006 LEXAPRO (ESCITALOPRAM) 08/21/2006 8 - GI Upset Comments: Nausea, diarrhea in first few days, couldn't stay on Date Reviewed: 03/15/2019 Reviewed by: Ruth Ann Galaviz LPN - Fully Assessed Reason for Visit: Appointment [186] Cmt: Neurology Prescriptions as of 06/15/2019 Sig: BENZONATATE 100 MG CAPSULE Take 1-2 capsules by mouth th* SERTRALINE 50 MG TABLET Take 1 tablet by mouth once d* LEVOTHYROXINE 100 MCG TABLET Take 1 tablet by mouth once d* CHOLECALCIFEROL (VITAMIN D3) * Take 1 capsule by mouth once * PROPRANOLOL 60 MG TABLET Take 60 mg by mouth three antoine* IRON (FERROUS SULFATE) ORAL Take 50 mg by mouth twice wendi* FLUOXETINE 20 MG CAPSULE Take 1 capsule by mouth once * Patient not taking: Reported on 05/13/2018 LEVOTHYROXINE 137 MCG TABLET Take 1 tablet by mouth daily * Patient not taking: Reported on 07/29/2018 ATENOLOL 50 MG TABLET Take 1 tablet by mouth once d* Patient not taking: Reported on 08/31/2017 * MULTI-VITAMIN ORAL Take by mouth. Problem List As Of Date 06/15/2019 Noted Resolved HYPOTHYROIDISM NOS [E03.9] More... Migraine [G43.909] ALLERGIC RHINITIS NOS [J30.9] More... ANXIETY STATE NOS [F41.1] 03/24/2007 More... OBESITY NOS [E66.9] 06/06/2007 More... Calcaneal spur [M77.30] 11/26/2011 Chest pain, atypical [R07.89] 06/19/2013 PVC's (premature ventricular contractions) [I49*06/19/2013 Family history of ischemic heart disease [Z82.4*06/19/2013 Encounter Status:Closed by PATTI PENNY on 06/23/19 [facility] Vital Signs Date Time Vital Sign Value Performing Clinician Faci lity 09-22-2024 15:01-0400 Body temperature 98.6 [degF] JUDITH LITTEL CARE TRANSITIONS MANAGER-C Work Phone: [facility] 09-22-2024 15:01-0400 Diastolic blood pressure 85 mm[Hg] JUDITH LITTLE CARE TRANSITIONS MANAGER-C Work Phone: [facility] 09-22-2024 15:01-0400 Heart rate 98 /min JUDITH LITTLE CARE TRANSITIONS MANAGER-C Work Phone: [facility] 09-22-2024 15:01-0400 Respiratory rate 23 /min JUDITH LITTLE CARE TRANSITIONS MANAGER-C Work Phone: [facility] 09-22-2024 15:01-0400 SaO2% (BldA) [Mass fraction] 100 % JUDITH LITTLE CARE TRANSITIONS MANAGER-C Work Phone: [facility] 09-22-2024 15:01-0400 Systolic blood pressure 154 mm[Hg] JUDITH LITTLE CARE TRANSITIONS MANAGER-C Work Phone: [facility] 09-22-2024 11:56-0400 Body height 160.02 cm JUDITH LITTLE CARE TRANSITIONS MANAGER-C Work Phone: [facility] 09-22-2024 11:56-0400 Body mass index (BMI) [Ratio] 37.3 kg/m2 JUDITH SIDNEY CARE TRANSITIONS MANAGER-C Work Phone: [facility] 09-22-2024 11:56-0400 Body weight 95.6 kg JUDITH LITTLE CARE TRANSITIONS MANAGER-C Work Phone: [facility] 08-13-2021 08:29-0400 Body height 160.02 cm CARE TRANSITIONS MANAGER-C Adamaris Kimbrough CARE TRANSITIONS MANAGER Work Phone: [facility] Work Phone: 08-13-2021 08:29-0400 Body mass index (BMI) [Ratio] 37.5 kg/m2 CARE TRANSITIONS MANAGER-C Adamaris Kimbrough CARE TRANSITIONS MANAGER Work Phone: [facility] Work Phone: 08-13-2021 08:29-0400 Body temperature 97.3 [degF] CARE TRANSITIONS MANAGER-C Adamaris Kimbrough CARE TRANSITIONS MANAGER Work Phone: [facility] Work Phone: 08-13-2021 08:29-0400 Body weight 96.27 kg CARE TRANSITIONS MANAGER-C Adamaris Kimbrough CARE TRANSITIONS MANAGER Work Phone: [facility] Work Phone: 08-13-2021 08:29-0400 Diastolic blood pressure 84 mm[Hg] CARE TRANSITIONS MANAGER-C Adamaris Kmibrough CARE TRANSITIONS MANAGER Work Phone: [facility] Work Phone: 08-13-2021 08:29-0400 Heart rate 73 /min CARE TRANSITIONS MANAGER-C Adamaris Kimbrough CARE TRANSITIONS MANAGER Work Phone: [facility] Work Phone: 08-13-2021 08:29-0400 Respiratory rate 17 /min CARE TRANSITIONS MANAGER-C Adamaris Kimbrough CARE TRANSITIONS MANAGER Work Phone: [facility] Work Phone: 08-13-2021 08:29-0400 SaO2% (BldA) [Mass fraction] 99 % CARE TRANSITIONS MANAGER-C Adamaris Kimbrough CARE TRANSITIONS MANAGER Work Phone: [facility] Work Phone: 08-13-2021 08:29-0400 Systolic blood pressure 138 mm[Hg] CARE TRANSITIONS MANAGER-C Adamaris Kimbrough CARE TRANSITIONS MANAGER Work Phone: [facility] Work Phone: 07-29-2021 14:41-0400 Body mass index (BMI) [Ratio] 37.3 kg/m2 CARE TRANSITIONS MANAGER-C Adamaris Kimbrough CARE TRANSITIONS MANAGER Work Phone: [facility] Work Phone: 07-29-2021 14:41-0400 Body temperature 96.1 [degF] CARE TRANSITIONS MANAGER-C Adamaris Kimbrough CARE TRANSITIONS MANAGER Work Phone: [facility] Work Phone: 07-29-2021 14:41-0400 Body weight 97.23 kg CARE TRANSITIONS MANAGER-C Adamaris Kimbrough CARE TRANSITIONS MANAGER Work Phone: [facility] Work Phone: 07-29-2021 14:41-0400 Diastolic blood pressure 82 mm[Hg] CARE TRANSITIONS MANAGER-C Adamaris Kimbrough CARE TRANSITIONS MANAGER Work Phone: [facility] Work Phone: 07-29-2021 14:41-0400 Heart rate 75 /min CARE TRANSITIONS MANAGER-C Adamaris Kimbrough CARE TRANSITIONS MANAGER Work Phone: [facility] Work Phone: 07-29-2021 14:41-0400 Respiratory rate 18 /min CARE TRANSITIONS MANAGER-C Adamaris Kimbrough CARE TRANSITIONS MANAGER Work Phone: [facility] Work Phone: 07-29-2021 14:41-0400 SaO2% (BldA) [Mass fraction] 99 % CARE TRANSITIONS MANAGER-C Adamaris Kimbrough CARE TRANSITIONS MANAGER Work Phone: [facility] Work Phone: 07-29-2021 14:41-0400 Systolic blood pressure 120 mm[Hg] CARE TRANSITIONS MANAGERKerri Kimbrough NP Work Phone: [facility] Work Phone: 04-28-2021 14:38-0400 Diastolic blood pressure 79 mm[Hg] [facility] Work Phone: 04-28-2021 14:38-0400 Heart rate 69 /min [facility] Work Phone: 04-28-2021 14:38-0400 Respiratory rate 15 /min [facility] Work Phone: 04-28-2021 14:38-0400 SaO2% (BldA) [Mass fraction] 99 % [facility] Work Phone: 04-28-2021 14:38-0400 Systolic blood pressure 135 mm[Hg] [facility] Work Phone: 04-28-2021 12:10-0400 Body height 160.02 cm [facility] Work Phone: 04-28-2021 12:10-0400 Body mass index (BMI) [Ratio] 37 kg/m2 [facility] Work Phone: 04-28-2021 12:10-0400 Body temperature 97.9 [degF] [facility] Work Phone: 04-28-2021 12:10-0400 Body weight 94.8 kg [facility] Work Phone: Encounters Encounter Date Encounter Type Care Provider Facility Start: 10-19-2024 ambulatory Payam Friend Facility :[facility] Start: 09-22-2024 Non-patient / Non-visit Dr. Constanza Swain MD -[facility] Work Phone: Start: 09-22-2024 End: 09-22-2024 Emergency department patient visit JUDITH CORRAL Work Phone: -Emergency Department Work Phone: Start: 08-30-2024 End: 08-30-2024 Patient encounter procedure Hyun GIMENEZ -[facility] Work Phone: Start: 08-30-2024 End: 08-30-2024 ambulatory JUDITH LITTLE CARE TRANSITIONS MANAGER-C Work Phone: -[facility] Start: 08-03-2024 End: 08-03-2024 ambulatory ADAMARIS MILLERPKINS SENIOR ACCOUNTING CLERK - STUDENT EDUCATION SPECIALIST Facility:[facility] Start: 08-03-2024 End: 08-03-2024 Patient encounter procedure ADAMARIS MILLERPKINS SENIOR ACCOUNTING CLERK - STUDENT EDUCATION SPECIALIST [facility] Start: 07-17-2024 End: 07-17-2024 ambulatory ADAMARIS MILLERPKINS SENIOR ACCOUNTING CLERK - STUDENT EDUCATION SPECIALIST Facility:[facility] Start: 07-17-2024 End: 07-17-2024 Patient encounter procedure ADAMARIS KIMBROUGH SENIOR ACCOUNTING CLERK - STUDENT EDUCATION SPECIALIST [facility] Start: 05-29-2024 ambulatory ADAMARIS MILLEROneal TROY SENIOR ACCOUNTING CLERK - STUDENT EDUCATION SPECIALIST Facility:[facility] Start: 12-10-2023 End: 12-10-2023 ambulatory JUDITH LITTLE SENIOR ACCOUNTING CLERK-CNM Facility:[facility] Start: 12-10-2023 End: 12-10-2023 Patient encounter procedure JUDITH LITTLE SENIOR ACCOUNTING CLERK-CNM [facility] Start: 06-10-2023 ambulatory JUDITH CHOW PSON SENIOR ACCOUNTING CLERK-CNM Facility:[facility] Start: 12-22-2022 End: 12-23-2022 ambulatory JUDITH LITTLE SENIOR ACCOUNTING CLERK-CNM Facility:[facility] Start: 12-22-2022 End: 12-22-2022 Patient encounter procedure JUDITH LITTLE SENIOR ACCOUNTING CLERK-CNM [facility] Start: 08-26-2022 End: 08-26-2022 ambulatory [facility] Work Phone: Start: 08-26-2022 End: 08-26-2022 Patient encounter procedure [facility]-Ultrasound, [facility] Work Phone: Start: 08-14-2021 End: 08-14-2021 Patient encounter procedure CARE TRANSITIONS MANAGER-C Adamaris Kimbrough CARE TRANSITIONS MANAGER Work Phone: [facility]-Laboratory, Specimen Start: 08-13-2021 End: 08-13-2021 Patient encounter procedure CARE TRANSITIONS MANAGER-C Adamaris Kimbrough CARE TRANSITIONS MANAGER Work Phone: [facility] Start: 07-29-2021 End: 07-29-2021 Patient encounter procedure CARE TRANSITIONS MANAGER-C Adamaris Kimbrough CARE TRANSITIONS MANAGER Work Phone: [facility] Start: 06-25-2021 End: 06-25-2021 Patient encounter procedure CARE TRANSITIONS MANAGER-C Adamaris Kimbrough CARE TRANSITIONS MANAGER Work Phone: [facility] Start: 06-03-2021 End: 06-03-2021 Patient encounter procedure ADAMARIS KIMBROUGH SENIOR ACCOUNTING CLERK - STUDENT EDUCATION SPECIALIST [facility] Start: 05-30-2021 End: 05-30-2021 Patient encounter procedure [facility]-Outpatient [facility] Start: 05-24-2021 End: 05-24-2021 Patient encounter procedure ADAMARIS KIMBROUGH SENIOR ACCOUNTING CLERK - STUDENT EDUCATION SPECIALIST [facility] Start: 05-23-2021 End: 05-23-2021 Patient encounter procedure ADAMARIS KIMBROUGH SENIOR ACCOUNTING CLERK - STUDENT EDUCATION SPECIALIST [facility] Start: 05-13-2021 End: 05-13-2021 Patient encounter procedure BERNADETTE ROSAS MD [facility] Start: 04-30-2021 End: 04-30-2021 Patient encounter procedure JUDITH LITTLE APRN-CNM [facility] Start: 04-28-2021 End: 04-28-2021 Emergency department patient visit [facility]-Emergency Department Procedures Date Procedure Procedure Detail Performing Clinician Start: 09-22-2024 Urnls dip stick/tabl et reagent auto microscopy JUDITH LITTLE CARE TRANSITIONS MANAGER-C Work Phone: Start: 09-22-2024 Plain chest X-ray ELIZABETH SPARKS CARE TRANSITIONS MANAGER-C Work Phone: Start: 09-22-2024 Estimated creatinine clearance JUDITH LITTLE CARE TRANSITIONS MANAGER-C Work Phone: Start: 09-22-2024 CT of head without contrast JUDITH LITTLE CARE TRANSITIONS MANAGER-C Work Phone: Start: 08-26-2022 US scan of thyroid Start: 06-25-2021 Radiologic examinati on of knee CARE TRANSITIONS MANAGER-C Adamaris Kimbrough CARE TRANSITIONS MANAGER Work Phone: Start: 05-30-2021 Screening mammography Start: 02-09-2020 Decompression of med doug nerve ADAMARIS KIMBROUGH SENIOR ACCOUNTING CLERK - STUDENT EDUCATION SPECIALIST Start: 02-08-2009 Fracture of lower li mb (disorder) ADAMARIS KIMBROUGH SENIOR ACCOUNTING CLERK - STUDENT EDUCATION SPECIALIST Cholecystectomy ADAMARIS TROY SENIOR ACCOUNTING CLERK - STUDENT EDUCATION SPECIALIST H/O: tubal ligation History of t ubal ligation Comment on above: 1998 History of cholecystectomy History of laparoscopic cholecystectomy Comment on above: July 1995 History of tonsillectomy History of tonsi llectomy Ligation of fallopia n tube ADAMARIS KIMBROUGH SENIOR ACCOUNTING CLERK - STUDENT EDUCATION SPECIALIST Tonsillar structure (palatine) (body structure) ADAMARIS KIMBROUGH SENIOR ACCOUNTING CLERK - STUDENT EDUCATION SPECIALIST Plan of Treatment Date Care Activity Detail Author Start: 09-22-2024 MRI of brain with contrast Brain W/W O Contrast [facility] Start: 09-22-[address] [facility] Start: 09-22-2024 Hospital admission, emergency, from emergency room, medical nature [facility] Start: 09-22-[address] [facility] Start: 07-29-2021 Patient referral [facility] Work Phone: Amphetamines [Presen ce] in Urine by Screen method >1000 ng/mL [facility] Benzodiazepine measu rement, urine [facility] Cocaine measurement, urine [facility] fentaNYL [Presence] in Urine by Screen method [facility] Methadone measuremen t, urine [facility] Patient Education [facility] Work Phone: Patient referral [facility] Work Phone: Phencyclidine [Prese nce] in Urine [facility] Urine cannabinoid measurement [facility] Urine opiate measurement [facility] Immunizations Immunization Date Immunization Notes Care Provider Dickson kearney 10-30-2015 tetanus toxoid, redu sudeep diphtheria toxoid, and acellular pertussis vaccine, adsorbed [facility] Payers Date Payer Category Payer Self-pay [id number] 2024 Private Health Insurance [id number] 2022 Unknown [id number] 2014 Unknown [id number] 1970 Unknown [id number] 1970 Unknown [id number] .[id number]. 1970 Unknown [id number] ..[id number]. 1970 Unknown [id number] ..[id number]. 1970 Unknown [id number] 1970 Unknown [id number] Private Health Insurance [facility] *DONOTUSE [id number] Unknown [id number] Unknown [id number] Unknown UNINSURED [id number] RELATED [id number] Unknown [id number] Unknown [id number] Social History Date Type Detail Facility Start: 04-28-2021 End: 12-25-2021 Tobacco smoking status GAIS Unknown if ever smoked [facility] Start: 1970 Sex Assigned At Female [facility] Work Phone: Start: 05-16-2021 End: 09-22-2024 Tobacco smoking status Never smoked tobacco (finding) [facility] Sexual Orientation [facility] Start: 04-16-2021 Sex Female (finding) [facility] Mental Status Date Assessment Result Facility 09-22-2024 Cognitive function Touch/Shaking [facility] Work Phone: Clinical Notes 06-08-2018 to 09-22-2024 Note Date & Type Note Facility 09-22-2024 History and physi jovan note [facility] 09-22-2024 Radiology Diagnostic study note [facility] Imaging Services [address] [place], [place] [address] Chest 1 View (Portable) MR#: [id number] Acct: [id number] Name: BRENNAN MONTEJO Rep #: [id number] : 1970 F 53 From: Joe Guerrero MD PCP: ELLIS Tavarez Status: REG ER Study:Chest 1 View (Portable) Date of Exam: 09/22/24 Exam# [id number] Ordering Dr: Kayy Perez PROCEDURE: CHEST 1 VIEW (PORTABLE) 09/22/2024 REASON FOR EXAM: SYNCOPE TECHNIQUE: Frontal view of the chest. COMPARISON: Prior study dated June 03, 2018 FINDINGS: Hardware: EKG electrodes are seen. Heart: The heart size is normal. Lungs: The lungs are clear. Bones: Degenerative changes are identified within the thoracic spine. Other: RAD/Chest 1 View (Portable) IMPRESSION: No Acute Findings. Reading Location: [place] [address] CC: CARE TRANSITIONS MANAGER-C Adamaris Kimbrough; AMMY Grant ~ Mgmt Consultant: Signed [facility] 09-22-2024 Radiology Diagnostic study note [facility] Imaging Services [address] [place], [place] [address] Brain/Head without Contrast MR#: [id number] Acct: [id number] Name: BRENNAN MONTEJO Rep #: [id number] : 1970 F 53 From: Joe Guerrero MD PCP: ELLIS Tavarez Status: REG ER Study:Brain/Head without Contrast Date of Exa m: 09/22/24 Exam# [id number] Ordering Dr: Kayy Perez PROCEDURE: BRAIN/HEAD WITHOUT CONTRAST 09/22/2024 REASON FOR EXAM: SYNCOPE TECHNIQUE: BRAIN/HEAD WITHOUT CONTRAST Coronal and Sagittal reconstruction series were provided. One or more dose reduction techniques were used (e.g., Automated exposure control, adjustment of the mA and/or kV according to patient size, use of iterative reconstruction technique. RADIATION DOSE SUMMARY: CTDlvol: 44.99 mGy DLP: A 12.98 mGycm COMPARISON: None FINDINGS: Brain: Normal CSF Spaces: Normal Sinuses/Mastoids: Clear at visualized levels Bones: Unremarkable CT/Brain/Head without Contrast IMPRESSION: NO ACUTE FINDINGS [facility] CC: ELLIS Kimbrough; AMMY Grant ~ Mgmt Consultant: Signed [facility] 09-22-2024 Hospital Discharge instructions Additional Instructions It is not clear if you had a seizure or passed out this morning. I recommend you follow-up with your primary care doctor and neurology. Continue to see neurology you need to follow seizure precautions which include no driving, no elevator (you can shower) no working on ladders or heights. This is for your safety in case you would have another seizure. [facility] Work Phone: 08-30-2024 Evaluation note Diagnosis Onset Date Resolution Bloating acute August 30 1:17pm Change in stool acute August 1:17pm Early satiety acute August 30, 2024 1:17pm Hiatal hernia acute August 30, 2024 1:17pm [facility] Work Phone: 1(459) 134-215106-26-2025 Note* Exam Date Time Procedure Performing Provider Status 08/03/24 9:33 AM XR Upper GI KAILA LAZO MD; Auth ( Verified) [id number] ORIGINAL HISTORY: Esophagitis COMPARISON: No FLUOROSCOPY TIME: 137 seconds FLUOROSCOPY IMAGES: 97 FINDINGS: The esophagus is normal in caliber, without filling defect or extrinsic impingement. There are mild tertiary contractions. No mucosal abnormalities are seen. There is a small hiatal hernia. No gastroesophageal reflux is demonstrated. The stomach is normal in position and morphology. Peristalsis is within normal limits. The fold pattern appears at least mildly atrophic. The duodenal bulb is grossly unremarkable. The ligament of Treitz is in the normal anatomic position. IMPRESSION: Small hiatal hernia. At least mildly atrophic gastric fold pattern, suggestive of atrophic gastritis Interpreted by: Kaila Lazo MD Preliminary Report By: Kaila Lazo MD Electronically signed By Kaila Lazo MD Dictated Date: 08/03/2024 2:54:35 PM Prelim Date: 08/03/2024 2:59:07 PM Sign Date: 08/03/2024 2:59:07 PM Ordering Provider: ADAMARIS KIMBROUGH Interpreted by: Kaila Lazo MD Preliminary Report By: Kaila Lazo MD Electronically signed By Kaila Lazo MD Dictated Date: 08/03/2024 2:54:35 PM Prelim Date: 08/03/2024 2:59:07 PM Sign Date: 08/03/2024 2:59:07 PM Ordering Provider: ADAMARIS KIMRBOUGH [facility]06-12-2025 Note. MICRO - Microbiology PROCEDURE: Stool Culture [^1 *1] SOURCE: Stool BODY SITE: COLLECTED DATE/TIME: 07/17/2024 16:02 EDT RECEIVED DATE/TIME: 07/17/2024 21:27 EDT START DATE/TIME: 07/17/2024 21:27 EDT FREE TEXT SOURCE: FINAL REPORTS Final Report [] Verified Date/Time/Personnel: 07/20/2024 08:57 EDT Normal stool nate present. Salmonella: Negative Shigella: Negative Campylobacter: Negative PRELIMINARY REPORTS Preliminary Report [] Verified Date/Time/Personnel: 07/19/2024 09:08 EDT Normal stool nate present. Negative for stool pathogens at 48 hours. Final report to follow. Interpretive Data ^1: Culture Stool Requests for alternative pathogens including Yersinia, E. coli 0157, C. difficile toxin, Rotavirus, Giardia and parasites require specific requests. Performing Locations *1: This test was performed at: [facility], [address] [place] [address], [address] [place], [place] [id number] Note. MICRO - Microbiology PROCEDURE: Giardia Antigen [*1] SOURCE: Stool BODY SITE: COLLECTED DATE/TIME: 07/17/2024 16:01 EDT RECEIVED DATE/TIME: 07/17/2024 21:27 EDT START DATE/TIME: 07/17/2024 21:28 EDT FREE TEXT SOURCE: FINAL REPORTS Final Report [] Verified Date/Time/Personnel: 07/19/2024 14:54 EDT Giardia Antigen by EIA: Negative A single diagnostic assay should not be used as the basis for forming a clinical conclusion. Giardia antigens are shed very sporadically. It is recommended that two separate stools be tested for Giardia antigen. If both are negative, then it is less likely that Giardia is present. Results should be supported by correlation with the patient symptoms and the overall clinical picture. Performing Locations *1: This test was performed at: [address], [address] [place], [place] [id number] Note. MICRO - Microbiology PROCEDURE: Shiga Toxins 1 and 2 [[id number]: [id number] ^1 *1] SOURCE: Stool BODY SITE: COLLECTED DATE/TIME: 07/17/2024 21:27 EDT RECEIVED DATE/TIME: 07/17/2024 21:27 EDT START DATE/TIME: 07/17/2024 21:27 EDT FREE TEXT SOURCE: FINAL REPORTS Final Report [] Verified Date/Time/Personnel: 07/18/2024 14:22 EDT Absence of Shiga toxin 1 Absence of Shiga toxin 2 Order Comments O1: Shiga Toxins 1 and 2 ordered by lab as part of Culture Stool Panel Interpretive Data ^1: Shiga Toxins 1 and 2 Testing performed by immunochromatography. Performing Locations *1: This test was performed at: [address], [address] [place], [place] [id number] Note. MICRO - Microbiology PROCEDURE: Fecal Leukocytes [*1] SOURCE: Stool BODY SITE: COLLECTED DATE/TIME: 07/17/2024 16:01 EDT RECEIVED DATE/TIME: 07/17/2024 21:27 EDT START DATE/TIME: 07/17/2024 21:27 EDT FREE TEXT SOURCE: FINAL REPORTS Final Report [] Verified Date/Time/Personnel: 07/17/2024 23:01 EDT Microscopy: Fecal Leukocytes Absent From our data, approximately 50% of enteroinvasive bacterial pathogens will not be associated with stool WBC's. Performing Locations *1: This test was performed at: [address], [address] [place], [place] [id number] Evaluation + Plan note Future Scheduled Tests Radiology* US Pelvis Non-OB W/Transvaginal 06/11/23 [facility] 11-05-2022 Evaluation + Plan note Future Scheduled Tests Laboratory* Thyroid Stimulating Hormone 12/13/21 * Free T4 12/13/21 * Free T3 12/13/21 [facility] 05-01-2019 Evaluation note* Diagnosis Onset Date Resolution Status DJD (degenerative joint disease) acute Thyroid nodule acute Hypothyroidism chronic Lymphocytic thyroiditis Jun, 2018 acut e Thyroid nodule acute S/P fine [facility]: [facility] + Plan note No data available for this section [facility] Evaluation + Plan note Future Appointments Appointment Date:05/16/2021 09:45:00 AM Scheduled Provider:BERNADETTE ROSAS MD Location:[facility] Appointment Type:ENDO CARE TRANSITIONS MANAGER Appointment Date:05/22/2021 03:20:00 PM Scheduled Provider:ADAMARIS KIMBROUGH SENIOR ACCOUNTING CLERK - STUDENT EDUCATION SPECIALIST Location:[facility] Appointment Type:PC CARE TRANSITIONS MANAGER Diagnostic Tests Pending * Thyroid Stimulating Immunoglobulin 05/13/21 * anti-Thyroid Peroxidase 05/13/21 [facility] Evaluation + Plan note Future Appointments Appointment Date:06/12/2021 03:40:00 PM Scheduled Provider:ADAMARIS KIMBROUGH SENIOR ACCOUNTING CLERK - STUDENT EDUCATION SPECIALIST Location:[facility] Appointment Type:PC OV Follow Up Appointment Date:08/28/2021 02:45:00 PM Scheduled Provider:BERNADETTE ROSAS MD Location:[facility] Appointment Type:ENDO OV Future Scheduled Tests Laboratory* Antinuclear Antibody Screen, Serum 05/22/21 * Antistreptolysin O 05/22/21 * C-Reactive Protein 05/22/21 * Thyroid Antibodies 05/22/21 * Thyroid Stimulating Hormone 05/22/21 * Thyroid Stimulating Hormone 08/15/21 * Free T4 05/22/21 * Free T4 08/15/21 * Uric Acid 05/22/21 * Free T3 08/15/21 * Glucose Level 05/22/21 * Lipid Profile 05/22/21 * Sedimentation Rate Automated 05/22/21 * Vitamin D Level 08/15/21 * Complete Metabolic Panel 08/15/21 * anti-Thyroid Peroxidase 05/16/21 Radiology* MA Mammo Screening Bilateral w/ Servando 05/22/21 * XR Hand Minimum 3 Views Left 05/22/21 * MRI Knee w/o Contrast Left 05/22/21 [facility] Evaluation + Plan note Future Appointments Appointment Date:06/12/2021 03:40:00 PM Scheduled Provider:ADAMARIS KIMBROUGH APRN, CNP Location:[facility] Appointment Type:PC OV Follow Up Appointment Date:08/28/2021 02:45:00 PM Scheduled Provider:BERNADETTE ROSAS MD Location:[facility] Appointment Type:ENDO OV Diagnostic Tests Pending * Antinuclear Antibody Screen, Serum 05/24/21 Future Scheduled Tests Laboratory* Thyroid Stimulating Hormone 08/15/21 * Free T4 08/15/21 * Free T3 08/15/21 * Vitamin D Level 08/15/21 * Complete Metabolic Panel 08/15/21 * anti-Thyroid Peroxidase 05/16/21 Radiology* MA Mammo Screening Bilateral w/ Servando 05/22/21 * XR Hand Minimum 3 Views Left 05/22/21 * MRI Knee w/o Contrast Left 05/22/21 [facility] Evaluation + Plan note Future Appointments Appointment Date:06/12/2021 03:40:00 PM Scheduled Provider:ADAMARIS KIMBROUGH APRN - STUDENT EDUCATION SPECIALIST Location:[facility] Appointment Type:PC OV Follow Up Appointment Date:08/28/2021 02:45:00 PM Scheduled Provider:BERNADETTE ROSAS MD Location:[facility] Appointment Type:ENDO OV Future Scheduled Tests Laboratory* Thyroid Stimulating Hormone 08/15/21 * Free T4 08/15/21 * Free T3 08/15/21 * Vitamin D Level 08/15/21 * Complete Metabolic Panel 08/15/21 * anti-Thyroid Peroxidase 05/16/21 Radiology* XR Hand Minimum 3 Views Left 05/22/21 [facility] Evaluation + Plan note Future Appointments Appointment Date:08/22/2024 03:20:00 PM Scheduled Provider:ADAMARIS KIMBROUGH APRN - STUDENT EDUCATION SPECIALIST Location:[facility] Appointment Type:PC OV Follow Up Diagnostic Tests Pending * Shiga Toxins 1 and 2 07/17/24 * FREDDY Panel 07/17/24 * Gliadin Antibody 07/17/24 * Helicobacter Pylori Antibody 07/17/24 * Stool Culture 07/17/24 * Giardia Antigen 07/17/24 * Tissue Transglutaminase Ab (IGA) 07/17/24 Future Scheduled Tests Laboratory* VIMAL by IFA Screen 05/15/24 * Thyroid Stimulating Hormone 05/15/24 * Free T4 05/15/24 * Uric Acid 05/15/24 * Rheumatoid Factor 05/15/24 * Complete Blood Count 05/15/24 * Free T3 05/15/24 * Sedimentation Rate Automated 05/15/24 * Complete Metabolic Panel 05/15/24 Radiology* MA Mammo Screening Bilateral w/ Servando 06/08/24 * XR Upper GI 07/10/24 [facility] Evaluation + Plan note Future Appointments Appointment Date:08/22/2024 03:20:00 PM Scheduled Provider:ADAMARIS KIMBROUGH APRN - STUDENT EDUCATION SPECIALIST Location:[facility] Appointment Type: OV Follow Up Future Scheduled Tests Laboratory* VIMAL by IFA Screen 05/15/24 * Thyroid Stimulating Hormone 05/15/24 * Free T4 05/15/24 * Uric Acid 05/15/24 * Rheumatoid Factor 05/15/24 * Complete Blood Count 05/15/24 * Free T3 05/15/24 * Sedimentation Rate Automated 05/15/24 * Complete Metabolic Panel 05/15/24 Radiology* MA Mammo Screening Bilateral w/ Servando 06/08/24 [facility] Evaluation noteNo assessment information available [facility] Work Phone: History and physical note Author Constanza Swain [facility] Note Date/Time September 22, 2024 2: 55pm [facility] Medical Records Department [address] [place] [address] H&P Exam - Hospitalist 09/22/24 1436 MR#: [id number] Acct: [id number] Name: BRENNAN MONTEJO Rep #:[id number] : 1970 53 From: Constanza Swain MD PCP: ELLIS Tavarez tus:REG ER Location: ED HPI - General General Date of Admission: 09/22/24 Date of Service: 09/22/24 Chief Complaint: New onset seizure HPI Narrative BRENNAN MONTEJO, is a 53-year-old female history of migraines, hypothyroidism, depression, GERD who presented to [facility] ED 09/22/2024 for suspected first onset seizure. Reportedly patient was at work and on the toiletand had profuse sweating and then went on to have seizure activity. In the ED temp 98.1, heart rate 115 with a blood pressure 154/85, respiratory rate 20 and pulse ox 100% on room air. Lab workup only revealing for low bicarb and high anion gap which would be consistent with seizure if lactic acid elevated, alcohol negative. CT of the brain no acute process. Given patient's significant hot and sweating feeling immediately before seizure there was concern that maybe there could have been a cardiac component to the seizure activity and home with outpatient follow-up versus inpatient workup and telemetry monitoring for possible cardiac cause were presented to patient in shelives alone and given her symptoms and concern with this prodrome and that this was an actual seizure patient prefers to be admitted which is reasonable. Hospitalist contacted for admission. Patient evaluated at bedside, reports she went to work today at 5 AM and sometime this morning started having a headache over her right eye, does have history of migraines but usually they are frontal or in the back of her head and this was somewhat abnormal for her, she reports then around break at 1015 she got an upset stomach and was not feeling well, when she went to the toilet was sitting down she suddenly became hot and sweaty and was having profuse sweating to the point where she remembered it literally dripping off of her and she removed her watch because she was so wet, the next thing she knew she woke up at the ED and was a little bit confused but now back to baseline. Reportedly a colleague notes that she did have full seizure-like activity and patient did bite tongue, presently feeling achy all over and still has a headache over her right eye, feels somewhat fatigued overall. Denies any chest pain, she does not remember if she had any lightheadedness, changes in vision, shortness of breath during the sweating episode. Denies any current changes in vision or chest pain, no bladder changes but reports she did have diarrhea earlier today but notes she has chronic problems with that off-and-on and it is not necessarily outside the realm of usual for her. Denies any history of seizure disorder. [facility] Medical History Allergies Arthritis Back problem Carpal tunnel syndrome Depression with anxiety Frequent headaches Goiter Hearing problem Heart valve problem History of gallstones Hx of migraines Hypothyroidism Lymphocytic thyroiditis (~06/25/18) Multinodular goiter Obesity Thyroid disease Thyroid nodule Thyromegaly Vitamin D deficiency Home Medications ?Medication ?Instructions ?Recorded ?Last Taken ?Type multivitamin 1 cap PO DAILY 06/13/18 Unkn own History thyroid (pork) 180 mg tablet 120 mg PO DAILY 07/29/21 Unknown History ([place] Thyroid) ibuprofen 600 mg tablet 600 mg PO Q6H PRN fever or p ain 12/25/21 Unknown Rx #20 tabs celecoxib 200 mg capsule 200 mg PO QDAY 08/30/24 Unkn own History famotidine 40 mg tablet 40 mg PO QHS 08/30/24 Unknow n History pantoprazole 40 mg tablet,delayed 40 mg PO QDAY Unknown History release sertraline 50 mg tablet 100 mg PO DAILY 08/30/24 Unk nown History Allergy/AdvReac Type Severity Reaction Status Date / Time escitalopram (From Lexapro) Allergy Intermediate twitching/nervous Verified 09/17/22 13:35 feeling propranolol AdvReac Nausea Verified 09/17/22 13:35 Family History Grandmother Cancer Throat cancer Heart disease Thyroid disorder Grandfather Cancer Lung cancer Stomach cancer Mother Heart disease Thyroid disorder Myocardial infarction Hypertension Father Diabetes High cholesterol Other Alcohol abuse Surgical History History of laparoscopic cholecystectomy History of tonsillectomy History of tubal ligation history ORIF right ankle S/P fine needle aspiration (~06/25/18) Social History Smoking Status: Never smoker alcohol intake: current alcohol intake frequency: 0-2 drinks per day substance use type: does not use ROS ROS Narrative General: Denies fever/chills HENT: Headache of right eye since this morning, denies stuffy nose, denies sore throat EYES: Denies changes in vision Resp: Denies cough, denies shortness of breath Cardiac: Denies chest pain GI: Intermittent diarrhea, denies nausea/vomiting : Denies changes in urination, denies loss of bowel or bladder during incident Extremity: Denies swelling MSK: Feels a little bit weak and achy Neuro: Denies any numbness/tingling Heme: Easy bruising, did bite tongue Skin: Denies rashes Psychiatric: No complaints voiced Vital Signs Vital Signs Vital Signs: 09/22/24 11:56 09/22/24 12:55 Temperature 98.1 F Temperature Source Oral Pulse Rate 115 H 101 H Respiratory Rate 20 H 19 H Blood Pressure 154/85 H 149/79 H Blood Pressure Mean 108 102 Pulse Ox 100 100 Oxygen Delivery Method Room Air Room Air Weight Weight: 95.6 kg Body Mass Index (BMI) 37.3 Physical Exam Narrative General: Alert, oriented, no apparent distress HEENT: Does have evidence that she bit her tongue, normocephalic Eyes: Anicteric, normal conjunctiva, extraocular movements intact, pupils equal Neck: Supple Respiratory: Clear to auscultation bilaterally, normal respiratory effort Cardiovascular: Regular rate and rhythm GI: Soft, nontender, nondistended Extremities: No edema Musculoskeletal: Strength 5 out of 5 in right upper extremity, 5 out of 5 left upper extremity, 5 out of 5 right lower extremity, 5 out of 5 left lower extremity Neuro: No overt focal neurological deficits, cranial nerves II through XII intact, [id number] without significant difficulty bilaterally Skin: No rashes appreciated Psych: Cooperative Results Lab / Micro Data 09/22/24 12:12 09/22/24 12:12 Labs: Laboratory Results - last 24 hr 09/22/24 12:12: WBC 7.6, RBC 4.39, Hgb 13.5, Hct 40.1, MCV 91.3, MCH 30.8, MCHC 33.7, RDW Std Deviation 44.3 H, RDW Coeff of Tiera 13.2, Plt Count 284, MPV 10.0, Immature Gran % (Auto) 0.400, Neut % (Auto) 51.4, Lymph % (Auto) 37.3, Hunt % (Auto) 7.2, Eos % (Auto) 3.0, Baso % (Auto) 0.7, Absolute Neuts (auto) 3.9, Absolute Lymphs (auto) 2.83, Nucleated RBC % 0, Sodium 139, Potassium 4.0, Chloride 103, Carbon Dioxide 14.8 L, Anion Gap 21 H, BUN 19, Creatinine 1.02, Estim Creat Clear Calc 70.16, Est GFR (MDRD) Non-Af 66, BUN/Creatinine Ratio 18.7, Glucose 111 H, Calcium 8.9, Total Bilirubin 0.22, AST 27, ALT 17, AlkalinePhosphatase 80, Total Protein 7.2, Albumin 4.2, Globulin 3.0, Albumin/Globulin Ratio 1.4, Ethyl Alcohol < 10.1 09/22/24 14:07: Urine Color Yellow, Urine Clarity Clear, Urine pH 6.0, Ur Specific [place] 1.015, Urine Protein 15 H, Urine Glucose (UA) Normal, Urine Ketones Negative, Urine Occult Blood Negative, Urine Nitrite Negative, Urine Bilirubin Negative, Urine Urobilinogen Normal, Ur Leukocyte Esterase Negative, Urine RBC 0 SEEN, Urine WBC 0 SEEN, Ur Squamous Epith Cells 0-5 SEEN, Urine Bacteria 0 SEEN, Urine Mucus 0 SEEN Imaging Radiology Impression Brain CT 09/22/24 12:02 IMPRESSION: NO ACUTE FINDINGS Reading Location: [facility] Chest X-Ray 09/22/24 13:15 IMPRESSION: No Acute Findings. Reading Location: [facility] Assessment & Plan Assessment/Plan (1) Seizure: PLAN: Plan # First onset seizure preceded by significant swelling and being hot -Seizure precautions -Discussed with ED physician, given her report of the above there was concern that we needed monitor for cardiac component -EKG in the ED with rate 101, QTc 428 KS 158, send sinus rhythm -Patient to be monitored on telemetry order echocardiogram -Will order MRI -Will order EEG -Will check lactic acid, CK, troponin -Check TSH and free T4 - As needed Ativan-for seizure-like activity -Will hold off on starting antiepileptic given this was for seizure and patient has normal neuroexam and lab workup thus far #Hypothyroidism -Continue home medication at this time #Depression/anxiety -Continue home medications #GERD -Continue PPI #DVT ppx: Lovenox subcu Constanza Swain MD Charges/Coding Visit Charges Inpatient E&M: 44228 Init Hosp L2 09/22/24 3714 <Electronically signed by Constanza Swain MD> Cosigner Signature (if applicable): CC: CARE TRANSITIONS MANAGERKerri Kimbrough; Dr. Constanza Swain MD~ Signed [facility] Work Phone: Hospital Discharge instructions Additional Instructions If you develop temperature greater 100, shaking chills or the red streak becomes worse do not hesitate to return otherwise follow-up with Dr. Hernandez. Take antibiotics until gone.[facility] Work Phone: Hospital Discharge instructions No data available for this section [facility] Work Phone: Hospital Discharge instructionsFair[facility] Medical Center Work Phone: Progress note No data available for this section [facility] Reason for referral (narrative)No reason for referral [facility] Work Phone: Summary Purpose Family History Relationship Condition Age at Onset Recorded Date/T colin grandmother Malignant neoplasm Unknown Cardiac disease Unknown Disorder of thyroid Unknown grandfather Malignant neoplasm Unknown mother Cardiac disease Unknown Myocardial infarction Unknown Relationship Condition Age at Onset Recorded Date/T colin Not Specified Alcohol abuse Unknown grandmother Malignant neoplasm Unknown Cardiac disease Unknown Disorder of thyroid Unknown grandfather Malignant neoplasm Unknown mother Cardiac disease Unknown Myocardial infarction Unknown Hypertension Unknown father Diabetes mellitus Unknown High blood cholesterol Unknown Advance Directives Advance Directive Response Recorded Date/ Time Advance Directives No January 1:49pm Living Will No April 28, 2021 1:09pm Power of Transportation Maintenance Supervisor No April 28 1:09pm Advance Directive Response Recorded Date/ Time Advance Directives No January 1:49pm Living Will No December 25 022 6:40am Power of Transportation Maintenance Supervisor No December 25, 2021 6:40am Advance Directive Response Recorded Date/ Time Advance Directives No January 1:49pm Advance Directive Response Recorded Date/ Time Do you have a Healthcare Power of Transportation Maintenance Supervisor? No September 22, 2024 12:01pm Advance Directives No January 1:49pm Chief Complaint and Reason for Visit Chief Complaint LEG PAIN Chief Complaint LEG PAIN SCREENING Chief Complaint LEG PAIN SCREENING LEFT KNEE xray CARE TRANSITIONS MANAGER. THYROID NODULE. NPP SENT R THYROID NODULE Reason for Visit DJD (degenerative aylin int disease) Thyroid nodule Hypothyroidism Lymphocytic thyroiditis Thyroid nodule S/P fine needle aspiration Chief Complaint NODULE Chief Complaint Admit Date CHRONIC ATROPHIC GASTRITIS W/O BLEEDING August 30, 2024 1:17pm Chief Complaint Admit Date CHRONIC ATROPHIC GASTRITIS W/O BLEEDING August 30, 2024 1:17pm possible seizure and fall September 22 2 025 11:54am possible seizure and fall September 22 025 2:36pm Reason for Visit Admit Date Bloating August 30, 2024 1:17 pm Change in stool August 30, 2024 1:17 pm Early satiety August 30, 2024 1:17 pm Hiatal hernia August 30, 2024 1:17 pm Additional Source Comments INFORMATION SOURCE (unrecogn ized section and content) DATE CREATED AUTHOR 07/10/2019 [facility] DATE CREATED AUTHOR AUTHOR'S ORGANIZ ATION 06/12/2023 [facility] ([place]) DATE CREATED AUTHOR AUTHOR'S ORGANIZ ATION 08/06/2024 [facility] DATE CREATED AUTHOR AUTHOR'S ORGANIZ ATION 09/05/2024 [facility] Goals (unrecognized section and content) Goals may be documented in a n alternate section No data available for this section No data available for this section No data available for this section No data available for this section No data available for this sectionGoals may be documented in an alternate sectionGoals may be documented in an alternate sectionGoals may be documented in an alternate section No data available for this section No data available for this section No data available for this section No data available for this sectionGoals may be documented in an alternate sectionGoals may be documented in an alternate section Care Team (unrecognized sect ion and content) Team Status: Active Member Role Status Dates Dr. Bao Ruiz MD Family Provider Active JUDITH LITTLE CARE TRANSITIONS MANAGER-C Primary Care Provider Active Team Status: Inactive Member Role Status Dates Dr. Ivan Horta MD Attending Provider, Referring P allan Active JUDITH LITTLE CARE TRANSITIONS MANAGER-C Primary Care Provider Active Team Status: Active Member Role/Relationship Status Dates Dr. Bao Ruiz MD Family Provider Active JUDITH LITTLE CARE TRANSITIONS MANAGER-C Primary Care Provider Active Team Status: Inactive Member Role/Relationship Status Dates JUDITH LITTLE CARE TRANSITIONS MANAGER-C Primary Care Provider Active Start: August 30, 2024 End: August 30, 2024 JUDITH LITTLE NP-Millicent Referring Provider Active Start: August 30, 2024 End: August 30, 2024 AMMY Ribeiro Attending Provider Active Start: August 30, 2024 End: August 30, 2024 Team Status: Active Member Role/Relationship Status Dates Adamaris Kimbrough NP, CARE TRANSITIONS MANAGER-C Primary Care Provider Active Team Status: Inactive Member Role/Relationship Status Dates Dr. Chuck Vargas MD Emergency Provider Active S tart: September 22, 2024 End: September 22, 2024 Adamaris Kimbrough NP, CARE TRANSITIONS MANAGER-C Primary Care Provider Active Start: September End: September 22, 2024 Team Status: Active Member Role/Relationship Status Dates Dr. Chuck Vargas MD Emergency Provider Active S tart: September 22, 2024 Adamaris Kimbrough NP, CARE TRANSITIONS MANAGER-C Primary Care Provider Active Start: September Dr. Constanza Swain MD Attending Provider Active Start: September 22, 2024 FOR RECORDS PERTAINING TO PATIENTS WHO ARE OR HAVE BEEN ENROLLED IN A CHEMICAL DEPENDENCY/SUBSTANCEABUSE PROGRAM, SOME INFORMATION MAY BE OMITTED. This clinical summary was aggregated from multiple sources. Caution should be exercised in using it in the provision of clinical care. This summary normalizes information from multiple sources, and as a consequence, information in this document may materially change the coding, format and clinical context of patient data. In addition, data may be omitted in some cases. CLINICAL DECISIONS SHOULD BE BASED ON THE PRIMARY CLINICAL RECORDS. [facility] [employer] [facility]. provides no warranty or guarantee of the accuracy or completeness of information in this document.
[2024-09-22 20:57] LABS: Troponin T High Sens 2 HR 8 ng/L (<=14)
[2024-09-22 21:00] VITALS: BP 137/76; PULSE 70; RESP 16; TEMP 36.8; O2SAT 100
[2024-09-22 22:53] LABS: Troponin T High Sens 4 HR 9 ng/L (<=14)
[2024-09-23 03:00] VITALS: BP 134/72; PULSE 76; RESP 16; TEMP 36.8; O2SAT 99
[2024-09-23] MEDS: 0.9% Normal Saline (1000mL) 1,000 ML 100 ML IV (04:02)
[2024-09-23 05:40] LABS: Hematocrit 36.5 % (37-47); Hemoglobin 12.2 g/dL (12.0-15.0); Immature Granulocytes Count 0.010 X10^3/uL (0.0-0.0); Mean Corp Hgb Conc 33.4 g/dL (32-36); Mean Corpuscular Volume 91.5 fL (81-99); Mean Platelet Vol. 9.9 fl (6.2-12.0); NRBC Flagged by Analyzer 0 % (0-5); Platelet Count 254 K/mm3 (150-450); RBC Distribution Width CV 13.5 % (11.6-14.6); RBC Distribution Width SD 45.5 fl (35.1-43.9); Red Blood Count 3.99 M/mm3 (4.2-5.4); White Blood Count 6.9 K/mm3 (4.4-11.0)
[2024-09-23 06:13] LABS: AST(SGOT) 27 U/L (<=31); Alanine Aminotransfer ALT/SGPT 16 U/L (<=34); Albumin, Serum 3.7 g/dL (3.5-5.0); Alkaline Phosphatase 65 U/L (35-104); Anion Gap 9 (5-15); BUN 11 mg/dL (4-19); BUN/Creat Ratio 14.5 RATIO (10-20); Calcium,Total 8.4 mg/dL (7.6-11.0); Carbon Dioxide 21.9 mmol/L (21.0-32.0); Chloride 110 mmol/L (98-108); Estimated Creatinine Clearance 91.40 ml/min (50-250); Globulin 2.4 g/dL (2.2-4.2); Glucose 90 mg/dL (70-99); Magnesium 2.3 mg/dL (1.5-2.2); Potassium 3.7 mmol/L (3.3-5.1)
[2024-09-23 09:28] VITALS: BP 145/81; PULSE 63; RESP 16; TEMP 36.6; O2SAT 100
--- NOTE | 2024-09-23 10:24 | CON.PCM.NE_ITS ---
Assessment and Plan: Neuro Assessment/Plan BRENNAN MONTEJO is a 53 F with a past medical history of migraines, being evaluated by Teleneurology for seizure-like activity. On history, symptoms occurred while patient was using the restroom, consistent with vasovagal syncope. Exam is nonfocal. 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 History is more consistent with convulsive syncope however the presence of an AVM makes a seizure possible. Diagnosis: convulsive syncope vs seizure Plan: - pending EEG read - CTA head/neck to eval for AVM - seizure precautions in the hospital and reviewed seizure precuations for outside the hospital with patient Final recs on ASM management pending CTA and EEG results I personally attended this patient and spent a total time of 45minutes evaluating this patient including clinical assessment, review of chart, medical history imaging, and determining appropriate treatment and workup. HPI Consult Data Date of Consult: 09/24/24 HPI Narrative HPI Narrative: BRENNAN MONTEJO, is a 53-year-old female history of migraines, hypothyroidism, depression, GERD who presented to [facility] ED 09/22/2024 for suspected first onset seizure. Reportedly patient was at work and on the toilet and had profuse sweating and then went on to have seizure activity. In the ED temp 98.1, heart rate 115 with a blood pressure 154/85, respiratory rate 20 and pulse ox 100% on room air. Lab workup only revealing for low bicarb and high anion gap which would be consistent with seizure if lactic acid elevated, alcohol negative. CT of the brain no acute process. Given patient's significant hot and sweating feeling immediately before seizure there was concern that maybe there could have been a cardiac component to the seizure activity and home with outpatient follow-up versus inpatient workup and telemetry monitoring for possible cardiac cause were presented to patient in she lives alone and given her symptoms and concern with this prodrome and that this was an actual seizure patient prefers to be admitted which is reasonable. Hospitalist contacted for admission. Patient evaluated at bedside, reports she went to work today at 5 AM and sometime this morning started having a headache over her right eye, does have history of migraines but usually they are frontal or in the back of her head and this was somewhat abnormal for her, she reports then around break at 1015 she got an upset stomach and was not feeling well, when she went to the toilet was sitting down she suddenly became hot and sweaty and was having profuse sweating to the point where she remembered it literally dripping off of her and she removed her watch because she was so wet, the next thing she knew she woke up at the ED and was a little bit confused but now back to baseline. Reportedly a colleague notes that she did have full seizure-like activity and patient did bite tongue, presently feeling achy all over and still has a headache over her right eye, feels somewhat fatigued overall. Denies any chest pain, she does not remember if she had any lightheadedness, changes in vision, shortness of breath during the sweating episode. Denies any current changes in vision or chest pain, no bladder changes but reports she did have diarrhea earlier today but notes she has chronic problems with that off-and-on and it is not necessarily outside the realm of usual for her. Denies any history of seizure disorder. Neurologic History She felt like she needed to go to the restroom and felt diaphoretic all over and then just woke up in the ED. Patient was having diarrhea. Recently dx with hiatal hernia and gastritis and normally has diarrhea off and on. Normally does have headaches but current headache is not her normal. LARA normally in the back of her neck or the front of forehead; usually a throbbing sensation; has photophobia and nausea with the normal LARA. YEsterday's LARA started around 10 AM, started on the R eye and throbbing. No vision changes with it, slight sensitivity. Normally does get an aura with headaches but does not have one now. No nausea now, the LARA currently 2/10, at its worst was around 6/10. No recent rashes, no fevers, night sweats. No sick contacts. Currently other than Lara feels back to normal but feels very drained. No numbness, no tingling, no difficulty getting up to walk. No new medications, no stopped medications recently. On sertraline for a while, last dose change was 4 month ago. No family ho seizure, no prior seizure, no loss of time, no fever seizure, no stroke, no infection in the brain, no recent TBI. Does not use alcohol, no tobacco us, no herbal Neurologic Exam: -? General: Laying comfortably in bed; in no acute distress. -? HENT: Normal oropharynx and mucosa. Normal external appearance of ears and nose. Exophthalmos. -? Neck: Supple, no pain or tenderness -? CV:? No peripheral edema. -? Pulmonary:? Normal respiratory effort. -? Ext: No cyanosis, edema, or deformity -? Skin: No rash. Normal palpation of skin.? -? Musculoskeletal: full range of motion; no joint tenderness. Normal digits and nails by inspection. No clubbing. -? NEURO: -? Mental Status: The patient was alert and oriented to time, place, and person. Normal recent/remote memory, concentration, and general fund of knowledge. -? Language: speech is clear.? Naming, repetition, fluency, and comprehension intact. -? Cranial Nerves: PERRL R pupil 3mm, L pupil 2mm both reactive briskly mm/brisk. EOMI, visual palma full, no facial asymmetry, facial sensation intact, hearing intact, tongue midline, no evidence of atrophy or fibrillations. -? Motor: normal bulk, tone, and strength throughout. No pronator drift or satelliting. Upper and lower extremities equal bilaterally. -?Detailed strength exam as performed by the nurse/MARCIAL and witnessed by the physician: l R L SA 5 5 EE EF 5 5 WE WF Senior Accounting Analyst 5 5 HF KE KF 5 5 DF 5 4 - pain limited PF -? Tone: is normal and bulk is normal -? Sensation- Intact to light touch bilaterally -? Coordination: No dysmetria on [id number], finger follow finger or [id number]. -? Gait- deferred [facility] Medical History Allergies Arthritis Back problem Carpal tunnel syndrome Depression with anxiety Frequent headaches Goiter Hearing problem Heart valve problem History of gallstones Hx of migraines Hypothyroidism Lymphocytic thyroiditis (~06/25/18) Multinodular goiter Obesity Thyroid disease Thyroid nodule Thyromegaly Vitamin D deficiency Home Medications ?Medication ?Instructions ?Recorded ?Last Taken ?Type multivitamin 1 cap PO DAILY supplement Unknown History thyroid (pork) 180 mg tablet 120 mg PO DAILY thyroid 0 07/29/21 Unknown History ([place] Thyroid) ibuprofen 600 mg tablet 600 mg PO Q6H PRN fever or p ain 12/25/21 Unknown Rx #20 tabs celecoxib 200 mg capsule 200 mg PO QDAY health Unknown History famotidine 40 mg tablet 40 mg PO QHS Acid reflux Unknown History pantoprazole 40 mg tablet,delayed 40 mg PO QDAY GERD 0 08/30/24 Unknown History release sertraline 50 mg tablet 100 mg PO DAILY depression 0 08/30/24 Unknown History Allergy/AdvReac Type Severity Reaction Status Date / Time escitalopram (From Lexapro) Allergy Intermediate twitching/nervous Verified 09/17/22 13:35 feeling propranolol AdvReac Nausea Verified 09/17/22 13:35 Family History Grandmother Cancer Throat cancer Heart disease Thyroid disorder Grandfather Cancer Lung cancer Stomach cancer Mother Heart disease Thyroid disorder Myocardial infarction Hypertension Father Diabetes High cholesterol Other Alcohol abuse Surgical History History of laparoscopic cholecystectomy History of tonsillectomy History of tubal ligation history ORIF right ankle S/P fine needle aspiration (~06/25/18) Social History Smoking Status: Never smoker alcohol intake: current alcohol intake frequency: 0-2 drinks per day substance use type: does not use Vital Signs Vital Signs Vital Signs: 09/22/24 11:56 09/22/24 12:55 09/22/24 15:01 Temperature 98.1 F 98.6 F Temperature Source Oral Pulse Rate 115 H 101 H 98 Respiratory Rate 20 H 19 H 23 H Respiratory Effort Respiratory Depth Respiratory Pattern Blood Pressure 154/85 H 149/79 H 154/85 H Blood Pressure Mean 108 102 108 Blood Pressure Source Blood Pressure Position Blood Pressure Location Pulse Ox 100 100 100 Oxygen Delivery Method Room Air Room Air 09/22/24 16:04 09/22/24 18:00 09/22/24 21:00 Temperature 98.2 F 98.3 F Temperature Source Oral Oral Pulse Rate 75 70 Respiratory Rate 16 16 Respiratory Effort Respiratory Depth Respiratory Pattern Blood Pressure 133/69 H 137/76 H Blood Pressure Mean 90 96 Blood Pressure Source Monitor Monitor Blood Pressure Position Semi-Fowlers Semi-Fowlers Blood Pressure Location Right Arm Right Arm Pulse Ox 100 100 Oxygen Delivery Method Room Air Room Air Room Air 09/22/24 22:00 09/23/24 03:00 09/23/24 03:30 Temperature 98.2 F Temperature Source Oral Pulse Rate 76 Respiratory Rate 16 Respiratory Effort Normal Normal Respiratory Depth Normal Normal Respiratory Pattern Normal Normal Blood Pressure 134/72 H Blood Pressure Mean 92 Blood Pressure Source Monitor Blood Pressure Position Semi-Fowlers Blood Pressure Location Right Arm Pulse Ox 99 Oxygen Delivery Method Room Air Room Air Room Air 09/23/24 09:28 09/23/24 09:31 Temperature 97.8 F Temperature Source Temporal Pulse Rate 63 Respiratory Rate 16 Respiratory Effort Normal Non-Labored Respiratory Depth Normal Respiratory Pattern Normal Blood Pressure 145/81 H Blood Pressure Mean 102 Blood Pressure Source Blood Pressure Position Blood Pressure Location Pulse Ox 100 Oxygen Delivery Method Room Air Room Air Weight Weight: 92.7 kg Body Mass Index (BMI) 36.1 EEG Results Procedure Details EEG Procedure Details: BRENNAN MONTEJO is a 53 year old F with a past medical history of , who presents for evaluation of Electroencephalogram on DATE at TIME Lab / Micro Data 09/23/24 04:45 09/23/24 04:45 Labs: Laboratory Results - last 24 hr 09/22/24 12:12: WBC 7.6, RBC 4.39, Hgb 13.5, Hct 40.1, MCV 91.3, MCH 30.8, MCHC 33.7, RDW Std Deviation 44.3 H, RDW Coeff of Tiera 13.2, Plt Count 284, MPV 10.0, Immature Gran % (Auto) 0.400, Neut % (Auto) 51.4, Lymph % (Auto) 37.3, [place] % (Auto) 7.2, Eos % (Auto) 3.0, Baso % (Auto) 0.7, Absolute Neuts (auto) 3.9, Absolute Lymphs (auto) 2.83, Nucleated RBC % 0, Sodium 139, Potassium 4.0, Chloride 103, Carbon Dioxide 14.8 L, Anion Gap 21 H, BUN 19, Creatinine 1.02, Estim Creat Clear Calc 70.16, Est GFR (MDRD) Non-Af 66, BUN/Creatinine Ratio 18.7, Glucose 111 H, Calcium 8.9, Total Bilirubin 0.22, AST 27, ALT 17, Alkaline Phosphatase 80, Total Creatine Kinase 67, Total Protein 7.2, Albumin 4.2, Globulin 3.0, Albumin/Globulin Ratio 1.4, Free T4 0.70 L, Ethyl Alcohol < 10.1 09/22/24 14:07: Urine Color Yellow, Urine Clarity Clear, Urine pH 6.0, Ur Specific [place] 1.015, Urine Protein 15 H, Urine Glucose (UA) Normal, Urine Ketones Negative, Urine Occult Blood Negative, Urine Nitrite Negative, Urine Bilirubin Negative, Urine Urobilinogen Normal, Ur Leukocyte Esterase Negative, Urine RBC 0 SEEN, Urine WBC 0 SEEN, Ur Squamous Epith Cells 0-5 SEEN, Urine Bacteria 0 SEEN, Urine Mucus 0 SEEN, Urine Opiates Screen NEGATIVE, U Buprenorphine Qual NEGATIVE, Ur Oxycodone Screen NEGATIVE, Urine Methadone Screen NEGATIVE, Urine Fentanyl Screen NEGATIVE, Ur Barbiturates Screen NEGATIVE, Ur Phencyclidine Scrn NEGATIVE, Ur Amphetamines Screen NEGATIVE, U Benzodiazepines Scrn NEGATIVE, Urine Cocaine Screen NEGATIVE, U Cannabinoids Screen PRESUMPTIVE POSITIVE 09/22/24 18:06: Troponin T High Sens 7 09/22/24 18:07: Lactic Acid < 1.0 09/22/24 20:15: Troponin T Hi Sens 2 Hr 8 09/22/24 22:18: Troponin T Hi Sens 4Hr 9 09/23/24 04:45: WBC 6.9, RBC 3.99 L, Hgb 12.2, Hct 36.5 L, MCV 91.5, MCH 30.6, MCHC 33.4, RDW Std Deviation 45.5 H, RDW Coeff of [place]iera 13.5, Plt Count 254, MPV 9.9, Immature Gran % (Auto) 0.100, Neut % (Auto) 59.5, Lymph % (Auto) 28.0, [place] % (Auto) 9.4, Eos % (Auto) 2.6, Baso % (Auto) 0.4, Absolute Neuts (auto) 4.1, Absolute Lymphs (auto) 1.94, Nucleated RBC % 0, Sodium 141, Potassium 3.7, C hloride 110 H, Carbon Dioxide 21.9, Anion Gap 9, BUN 11, Creatinine 0.77, Estim Creat Clear Calc 91.40, Est GFR (MDRD) Non-Af 92, BUN/Creatinine Ratio 14.5, Glucose 90, Calcium 8.4, Magnesium 2.3 H, Total Bilirubin 0.37, AST 27, ALT 16, Alkaline Phosphatase 65, Total Protein 6.0, Albumin 3.7, Globulin 2.4, Albumin/Globulin Ratio 1.6, TSH 2.260 Imaging Radiology Impression Brain CT 09/22/24 12:02 IMPRESSION: NO ACUTE FINDINGS Reading Location: [facility] Chest X-Ray 09/22/24 13:15 IMPRESSION: No Acute Findings. Reading Location: [facility]--1 Active Medications Active Medications Active Medications: Current Medications Generic Name Dose Route Start Last Admin Trade Name Freq PRN Reason Stop Dose Admin Acetaminophen 650 mg 09/22/24 16:03 09/23/24 09:35 Acetaminophen 325 Mg Tablet PO 650 mg Q6H PRN PRN Administration Pain 1-10 Or Fever >100.7 Albuterol Sulfate 2.5 mg 09/22/24 16:03 Albuterol 2.5 Mg/3 Ml Vial.Neb. INHALATION Q2H PRN PRN SOB &/OR WHEEZING Enoxaparin Sodium 40 mg 09/23/24 10:00 09/23/24 09:36 Enoxaparin 40 Mg/0.4 Ml Syringe SC 40 mg DAILY ADOLFO Administration Famotidine 40 mg 09/23/24 10:00 09/23/24 09:35 Famotidine 20 Mg Tablet PO 40 mg DAILY ADOLFO Administration Sodium Chloride 1,000 mls @ 100 mls/hr 09/22/24 16:03 09/23/24 04:02 IV 09/23/24 12:02 100 mls/hr .Q10H ADOLFO Administration Sodium Chloride 250 mls @ 15 mls/hr 09/22/24 16:12 IV .[id number] PRN Saline Flush Sodium Chloride 250 mls @ 15 mls/hr 09/22/24 16:12 IV .[id number] PRN Additional IVPB Infusion Ibuprofen 600 mg 09/22/24 16:03 Ibuprofen 600 Mg Tablet PO Q6H PRN PRN Pain Score 1-10 Iopamidol 0 ml 09/22/24 16:03 09/22/24 18:02 Contrast Allergy Safety Check IV Not Given X1 ADOLFO Lorazepam 0.5 mg 09/22/24 16:03 Lorazepam 0.5 Mg Tablet PO X1 PRN Anxiety with MRI Lorazepam 2 mg 09/22/24 16:06 Lorazepam 2 Mg/Ml Syringe IV X1 PRN seizure activity Melatonin 10 mg 09/22/24 16:03 Melatonin 3 Mg Tablet PO QHS PRN PRN INSOMNIA Ondansetron HCl 4 mg 09/22/24 16:03 Ondansetron 4 Mg/2 Ml Vial IV Q8H PRN PRN NAUSEA/VOMITING Pantoprazole Sodium 40 mg 09/22/24 16:03 09/23/24 09:35 Pantoprazole Sodium 40 Mg Tablet PO 40 mg DAILY ADOLFO Administration Senna/Docusate Sodium 2 tablet 09/22/24 16:03 Senna/Docusate Sodium 1 Tablet PO BID PRN PRN Constipation Sertraline HCl 100 mg 09/23/24 10:00 09/23/24 09:35 Sertraline 100 Mg Tablet PO 100 mg DAILY ADOLFO Administration Sodium Chloride 10 - 40 ml 09/22/24 16:12 0.9% Saline Lock 10 Ml Syringe IV UD PRN SALINE FLUSH Thyroid 120 mg 09/23/24 10:00 Thyroid 60 Mg Tablet PO DAILY ADOLFO
--- NOTE | 2024-09-23 10:55 | CASEMGMT ---
RN CM Face to Face with patient for initial transition planning/care coordination assessment. RN CM introduced self and role at [facility]. Patient lying in bed, alert and oriented. Patient willing to participate in assessment and is able to answer all questions appropriately. Care providers, pharmacy, and demographics verified. Strata: 1 PCP: Kaylan COLLEGE DEAN Specialists: none Preferred Pharmacy: [facility] Insurance: [employer] Prescription Benefit: yes Living Will/HPOA: none LNOK: daughters Living Arrangements: Patient lives alone in a first floor apartment with 4 steps and railing to enter the home. Patient states she is independent at home. Transportation: self, daughter DME/HHC: Patient denies DME in the home. No previous HHC or SNF. Patient wishes to discharge home, denies needs at discharge. Patient states she has no further needs or concerns at this time. CM to follow for discharge planning needs that may arise. Disposition Plan: Patient to discharge home with family support and follow-up plans in place. Dolores MARLEY, RN, CM
--- NOTE | 2024-09-23 12:06 | RAD_ITS ---
PROCEDURE: ANKLE 2 VIEWS 09/23/2024 REASON FOR EXAM: SWOLLEN PAINFUL ANKLE TECHNIQUE: ANKLE 2 VIEWS Laterality: Left COMPARISON: None. FINDINGS: BONES: No acute fracture or focal osseous lesion. Small plantar calcaneal spur. JOINTS: No dislocation. The joint spaces are normal. SOFT TISSUES: There is swelling in the ventral ankle and dorsal foot. RAD/Ankle 2 Views IMPRESSION: NO ACUTE OSSEOUS ABNORMALITY. SOFT TISSUE SWELLING. Reading Location: [id number]
--- NOTE | 2024-09-23 15:27 | CT_ITS ---
PROCEDURE: CTA HEAD AND NECK W/ CONTRAST 09/23/2024 REASON FOR EXAM: POSSIBLE AVM TECHNIQUE: CTA HEAD AND NECK W/ CONTRAST Multiplanar Sagittal and Coronal images were obtained. 3D and MIP post processing was performed. CONTRAST: Isovue 370 VOLUME: 100 mL One or more dose reduction techniques were used (e.g., Automated exposure control, adjustment of the mA and/or kV according to patient size, use of iterative reconstruction technique). RADIATION DOSE SUMMARY: DLP: 1619.91 mGycm COMPARISON: Noncontrast CT head 09/22/2024. FINDINGS: CTA HEAD: Widely patent intracranial arterial vasculature. No large vessel occlusion or significant stenosis. There is an arteriovenous malformation in the right hemisphere with vascular nidus in the posterior right temporal lobe, which measures approximately 2.9 x 2.1 x 2.1 cm (AP, TV, CC). Dominant arterial supply arises from the right MCA inferior division M2 segment branch which is prominent in caliber. Primary venous drainage is via an engorged vein draining inferiorly to the right transverse venous sinus. No additional intracranial vascular malformation, or saccular aneurysm identified elsewhere. CTA NECK: Conventional aortic arch branching. Bilateral cervical carotid and codominant vertebral arteries are patent without significant stenosis. No aneurysm or dissection. NON-ANGIOGRAPHIC FINDINGS: Enlarged heterogeneous thyroid gland, particularly the right lobe. CT/CTA Head AND Neck W/ Contrast IMPRESSION: Arteriovenous malformation with vascular nidus in the posterior right temporal lobe, as described above. Arterial supply mainly arises from the right MCA and drains to the right transverse sinus. Enlarged heterogeneous thyroid gland; see prior thyroid ultrasound reports. Reading Location: [id number]
[2024-09-23 15:30] VITALS: BP 141/86; PULSE 65; RESP 18; TEMP 36.8; O2SAT 95
--- NOTE | 2024-09-23 19:03 | PN.HOSP_ITS ---
Reason for Visit Chief Complaint: New onset seizure Subjective Subjective Patient was seen and examined today, I communicated with neurology by text, CTA of the head and neck was ordered which showed an arteriovenous malformation with vascular nidus in the posterior right temporal lobe, arterial supply mainly arises from the right MCA and drains to the right transverse sinus. At the time of this dictation, I have texted neurology as to further plans for the patient. Objective Data Objective Data Vital Signs: Vital Signs Temp Pulse Resp BP Pulse Ox O2 Del Method 98.2 F 65 18 141/86 H 95 Room Air 09/23/24 15:30 09/23/24 15:30 09/23/24 15:30 09/23/24 15:30 09/23/24 15:30 09/23/24 17:10 Oxygen Delivery Method Room Air Weight: 92.7 kg Body Mass Index (BMI) 36.1 Intake & Output: Intake and Output for Last 24 Hours 09/21/24 09/22/24 09/23/24 23:59 23:59 23:59 Intake Total 1010 / 1450 3060 / 3060 Balance 1010 / 1450 3060 / 3060 Lab / Micro Data 09/23/24 04:45 09/23/24 04:45 Labs: Laboratory Results - last 24 hr 09/22/24 18:06: Troponin T High Sens 7 09/22/24 18:07: Lactic Acid < 1.0 09/22/24 20:15: Troponin T Hi Sens 2 Hr 8 09/22/24 22:18: Troponin T Hi Sens 4Hr 9 09/23/24 04:45: WBC 6.9, RBC 3.99 L, Hgb 12.2, Hct 36.5 L, MCV 91.5, MCH 30.6, MCHC 33.4, RDW Std Deviation 45.5 H, RDW Coeff of Tiera 13.5, Plt Count 254, MPV 9.9, Immature Gran % (Auto) 0.100, Neut % (Auto) 59.5, Lymph % (Auto) 28.0, [place] % (Auto) 9.4, Eos % (Auto) 2.6, Baso % (Auto) 0.4, Absolute Neuts (auto) 4.1, Absolute Lymphs (auto) 1.94, Nucleated RBC % 0, Sodium 141, Potassium 3.7, C hloride 110 H, Carbon Dioxide 21.9, Anion Gap 9, BUN 11, Creatinine 0.77, Estim Creat Clear Calc 91.40, Est GFR (MDRD) Non-Af 92, BUN/Creatinine Ratio 14.5, Glucose 90, Calcium 8.4, Magnesium 2.3 H, Total Bilirubin 0.37, AST 27, ALT 16, Alkaline Phosphatase 65, Total Protein 6.0, Albumin 3.7, Globulin 2.4, Albumin/Globulin Ratio 1.6, TSH 2.260 Radiography Diagnostic Testing: Radiology Impression Brain MRI 09/22/24 14:54 IMPRESSION: Right posterior temporal region arteriovenous malformation, best depicted on prior CTA. No significant mass-effect or parenchymal edema. Otherwise no acute intracranial abnormality. Reading Location: [facility] Echocardiogram 09/22/24 14:54 Interpretation Summary The LV ejection fraction is 55 %. Epicardial fat. Ordering Physician: Constanza Swain Performed By: Latha Bishop [facility] Ankle X-Ray 09/23/24 12:06 IMPRESSION: NO ACUTE OSSEOUS ABNORMALITY. SOFT TISSUE SWELLING. Reading Location: [facility] Head/Neck CTA 09/23/24 15:27 IMPRESSION: Arteriovenous malformation with vascular nidus in the posterior right temporal lobe, as described above. Arterial supply mainly arises from the right MCA and drains to the right transverse sinus. Enlarged heterogeneous thyroid gland; see prior thyroid ultrasound reports. Reading Location: [facility] Physical Exam Const alert, oriented x3, no apparent distress and healthy appearing General Appearance: cooperative, well kempt and well developed Orientation / Consciousness: awake, oriented to person, oriented to place and oriented to time HEENT normocephalic, head/scalp atraumatic and moist oral mucous membranes Eyes PERRL, EOMs intact bilaterally and conjunctivae normal Neck supple, no JVD, thyroid normal and no carotid bruits General: trachea midline Resp normal respiratory effort, no retractions, no use of accessory muscles and clear to auscultation bilaterally Auscultation: Negative for rales, rhonchi or wheezes Cardio regular rate, regular rhythm, no murmurs, no rub and no gallops GI normal to inspection, nondistended, normoactive bowel sounds, soft to palpation, non-tender and non-distended Extremity no clubbing, cyanosis or edema Skin no rashes or lesions noted General Skin Exam: no breakdown Neuro oriented x3, CN's II-XII intact bilaterally, no focal motor deficits and no sensory deficits noted Sensorium / Orientation: awake and alert Speech: speech normal Psych affect normal Assessment & Plan Assessment/Plan (1) Syncope: PLAN: Plan 1. Syncope-etiology unclear, patient's imaging studies did not show an acute stroke, and AVM again was detected-this was not felt to be the cause of the patient's syncope. I will talk with neurology tomorrow concerning the patient's further care. 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
[2024-09-23 21:45] VITALS: BP 147/80; PULSE 70; RESP 18; TEMP 36.9; O2SAT 98
[2024-09-24 03:40] VITALS: BP 148/78; PULSE 68; RESP 18; TEMP 36.9; O2SAT 98
[2024-09-24 08:46] VITALS: BP 141/92; PULSE 64; RESP 16; TEMP 36.7; O2SAT 100
--- NOTE | 2024-09-24 12:30 | PCM.DC ---
Discharge Instructions DC O2, CPAP, BIPAP needs Home O2 Discharge instructions: No Dressing / Incision Discharge Activity: Return to Normal Activity, May Not Drive (For 3 months) and - (Have a discussion with your employer to see if they are okay with you going back to work this week) Return to work on:: 09/27/24 Weight Bearing Status: Full weight bearing Follow Up Care Test Results: Test results from this visit will be discussed in further detail at your follow-up appointment, if applicable. Discharge Plan Admission Admit Date/Time: 09/22/24 14:36 Primary Reason for Your Visit: Convulsive syncope Attending Provider: Benjamín Guillermo Primary Care Provider: Abdias Kimbrough OPTOMETRIC TECHNICIAN Consulting Providers: Alessandra Ruiz; Richelle Carbone; Julian Rosa; Brina Turner; Lara Dutta; Brennan Mario; Gladys Alonzo; Scarlett Amaya; Rodrick Barraza; Kavya Marquez; Jorge Valle; Sylvester De Oliveira; Vijay Morgan; Darby Love; Suman Lee; Chad Celis; Janeth Chatterjee; Ney Lo; Barbara Gomez; Betty Markham; Haley Barry; Bebeto Cabrera; Gianluca Moreno; CHELY MERRILL; Jose Carlos Wells; Rosette Fraser; Constanza Swain Instructions Forms: Work / School Excuse Additional Instructions / Restrictions: Avoid climbing ladders for the next 3 months Discharge Orders/Prescriptions Prescriptions: Continued multivitamin capsule 1 cap PO DAILY sertraline 50 mg tablet 100 mg PO DAILY Patient Comments: TAKE 1 TABLET BY MOUTH AT THE SAME TIME ONCE DAILY celecoxib 200 mg capsule 200 mg PO QDAY pantoprazole 40 mg tablet,delayed release (DR/EC) 40 mg PO QDAY famotidine 40 mg tablet 40 mg PO QHS [place] Thyroid 180 mg tablet 120 mg PO DAILY Patient Comments: TAKE 1 TABLET BY MOUTH ONCE DAILY IN THE MORNING. WAIT 30 MINUTES TO 1 HOUR BEFORE EATING OR DRINKING ANYTHING OTHER THAN WATER ibuprofen 600 mg tablet 600 mg PO Q6H PRN (Reason: fever or pain) Qty: 20 0RF Referrals / Follow Up: JUDITH LITTLE, OPTOMETRIC TECHNICIAN-C [Non-Staff] - Abdias Kimbrough OPTOMETRIC TECHNICIAN, OPTOMETRIC TECHNICIAN-C [Primary Care Provider] - Within 2 Weeks (He will need to arrange for you to be seen by neurosurgery at [facility] regarding your brain AVM) Disposition Disposition (needs filled in before D/C Order can be placed): Home, Self Care
--- NOTE | 2024-09-24 12:42 | PCM.DC.SUM ---
Providers Date of Admission: 09/22/24 Date of Discharge: 09/24/24 Primary Care Physician: Abdias Kimbrough, CHIEF ENGINEERING DIVISION-[place] Consultations 09/22/24 16:03 Consult: Tele-Neurology Routine Consulting Provider: [facility] Reason for Consult: new onset seizure, working up for poss card prodrome, has R sided LARA EMERGENT Consult: No MD Notified: Yes Date Notified: 09/22/24 Time Notified: 16:40 Method of Notification: [facility] Nursing [facility] Staff Notify [facility] of Tele-Neurology Consult: Yes Reason For Visit: FIRST ONSET SEIZURE Diagnosis Discharge Diagnosis (1) Seizure: Status: Acute Code(s): R56.9 - Unspecified convulsions Plan 1. 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 Medications at Discharge Home Medications multivitamin 1 cap PO DAILY supplement 06/13/18 thyroid (pork) 180 mg tablet ([place] Thyroid) 120 mg PO DAILY thyroid 07/29/21 ibuprofen 600 mg tablet 600 mg PO Q6H PRN fever or pain #20 tabs 12/25/21 celecoxib 200 mg capsule 200 mg PO QDAY health 08/30/24 famotidine 40 mg tablet 40 mg PO QHS Acid reflux 08/30/24 pantoprazole 40 mg tablet,delayed release 40 mg PO QDAY GERD 08/30/24 sertraline 50 mg tablet 100 mg PO DAILY depression 08/30/24 Hospital Course Operations None Procedures - (EEG) Summary of Care Provided Minutes Spent on Discharge: 31 Hospital Course: This 53-year-old white female was seen in the emergency room at [facility] after having a syncopal episode at work, patient felt odd and went into the bathroom at work and passed out, there was noted to be twitching during this episode and the patient was unresponsive to verbal commands for approximately 45 minutes. Patient was brought to the emergency room at [facility], CT of the brain showed no acute process labs were essentially unremarkable. Patient was admitted to PCU, echocardiogram showed a normal EF with no significant valvular disease. Neurology was consulted, EEG was ordered which was unremarkable, brain MRI showed a right posterior temporal region AV malformation, this was also noted on a CTA of the head. There was no evidence of stroke or edema. Neurology felt that the patient probably had a convulsive syncope episode and recommended no driving for 3 months and did not recommend any seizure medication. They recommended patient see a neurosurgeon for consultation regarding the AVM but did not feel the AVM was responsible for the patient's symptomology. On 09/24/2024, patient was seen and examined: On examination she appeared in good health and spirits, she does not appear to be in any distress. Vital signs as documented. Skin warm and dry and without overt rashes. Neck without JVD, thyroid appears normal, trachea is midline, neck is supple. Lungs clear, normal air movement was noted. Heart exam notable for regular rhythm, normal sounds and absence of murmurs, rubs or gallops. Abdomen unremarkable and without evidence of organomegaly, masses, or abdominal aortic enlargement, bowel sounds are present in all 4 quadrants, no abdominal tenderness was noted. Extremities nonedematous, no cyanosis was noted, no clubbing was noted. Neuro: Cranial nerves II through XII are grossly intact, no focal motor deficits were noted, sensation to light touch and pinprick is intact, motor exam 5/5 throughout. Psych: Patient is alert and oriented x3, she does not appear anxious or depressed, she does not appear agitated. I contacted the patient's PCP to notify them that the patient need to be referred to [facility] neurosurgery (patient preferred [facility] neuro[facility]) and I discussed the case with the patient's PCP. Patient was discharged in stable condition on 09/24/2024 to home Weight / BMI Weight Weight: 92.7 kg Body Mass Index (BMI) 36.1 ABG / Lab / Microbiology Data 09/23/24 04:45 09/23/24 04:45 Radiography Diagnostic Testing: Radiology Impression Brain MRI 09/22/24 14:54 IMPRESSION: Right posterior temporal region arteriovenous malformation, best depicted on prior CTA. No significant mass-effect or parenchymal edema. Otherwise no acute intracranial abnormality. Reading Location: [id number] Ankle X-Ray 09/23/24 12:06 IMPRESSION: NO ACUTE OSSEOUS ABNORMALITY. SOFT TISSUE SWELLING. Reading Location: [id number] Head/Neck CTA 09/23/24 15:27 IMPRESSION: Arteriovenous malformation with vascular nidus in the posterior right temporal lobe, as described above. Arterial supply mainly arises from the right MCA and drains to the right transverse sinus. Enlarged heterogeneous thyroid gland; see prior thyroid ultrasound reports. Reading Location: [id number] D/C Instructions Return to work on: 09/27/24 Weight Bearing Status: Full weight bearing DC O2, CPAP, BIPAP Needs Home O2 Discharge instructions: No Meaningful Use Info Meaningful Use Meaningful Use Diagnoses (Choose all that apply): None applicable Discharge Plan Admission Admit Date/Time: 09/22/24 14:36 Primary Reason for Your Visit: Convulsive syncope Attending Provider: Benjamín Guillermo Primary Care Provider: Abdias Kimbrough NP Consulting Providers: Alessandra Ruiz; Richelle Carbone; Julian Rosa; Brina Turner; Lara Dutta; Brennan Mario; Gladys Alonzo; Scarlett Amaya; Rodrick Barraza; Kavya Marquez; Jorge Valle; Sylvester De Oliveira; Vijay Morgan; Darby Love; Suman Lee; Chad Celis; Janeth Chatterjee; Ney Lo; Barbara Gomez; Betty Markham; Haley Barry; Bebeto Cabrera; Gianluca Moreno; CHELY MERRILL; Jose Carlos Wells; Rosette Fraser; Constanza Swain Instructions Forms: Work / School Excuse Additional Instructions / Restrictions: Avoid climbing ladders for the next 3 months Discharge Orders/Prescriptions Prescriptions: Continued multivitamin capsule 1 cap PO DAILY sertraline 50 mg tablet 100 mg PO DAILY Patient Comments: TAKE 1 TABLET BY MOUTH AT THE SAME TIME ONCE DAILY celecoxib 200 mg capsule 200 mg PO QDAY pantoprazole 40 mg tablet,delayed release (DR/EC) 40 mg PO QDAY famotidine 40 mg tablet 40 mg PO QHS [place] Thyroid 180 mg tablet 120 mg PO DAILY Patient Comments: TAKE 1 TABLET BY MOUTH ONCE DAILY IN THE MORNING. WAIT 30 MINUTES TO 1 HOUR BEFORE EATING OR DRINKING ANYTHING OTHER THAN WATER ibuprofen 600 mg tablet 600 mg PO Q6H PRN (Reason: fever or pain) Qty: 20 0RF Referrals / Follow Up: JUDITH LITTLE, CHIEF ENGINEERING DIVISION-C [Non-Staff] - Abdias Kimbrough CHIEF ENGINEERING DIVISION, CHIEF ENGINEERING DIVISION-C [Primary Care Provider] - Within 2 Weeks (He will need to arrange for you to be seen by neurosurgery at [facility] regarding your brain AVM) Disposition Disposition (needs filled in before D/C Order can be placed): Home, Self Care Charges/Coding Visit Charges Inpatient E&M: 67343 Disch Hosp >30min
== END 2024-09-24 14:15 | disposition home or self-care (01) | DRG 100 ==
LOC: ED 13:34 → PCU 16:02
PROVIDERS: Physician Assistant; Admitting Provider Internal Medicine; Emergency Provider Emergency Medicine; PCP Nurse Practitioner Family; Visit Provider Internal Medicine
DX: R56.9 Unspecified convulsions (principal); Q28.2 Arteriovenous malformation of cerebral vessels; E03.9 Hypothyroidism, unspecified; F32.A Depression, unspecified; K21.9 Gastro-esophageal reflux disease without esophagitis; F41.9 Anxiety disorder, unspecified; R55 Syncope and collapse; Z79.890 Hormone replacement therapy; Z79.899 Other long term (current) drug therapy
CPT/HCPCS: 36415; 70450; 70496; 70498; 70553; 71045; 73600; 80053; 80307; 81001; 82077; 82550; 83605; 83735; 84439; 84443; 84484; 85025; 93005; 93306; 95819; 97802; 99285; A9575; Q9967; A4216

== ENCOUNTER 2025-01-29 15:45 | Emergency (ER) | payer OTHER, SELFPAY ==
[2025-01-29 15:47] VITALS: BP 132/80; PULSE 78; RESP 18; TEMP 37.3; O2SAT 100; BMI 35.4
[2025-01-29] MEDS: 0.9% Normal Saline (1000mL) 1,000 ML 999 ML IV (18:44)
--- NOTE | 2025-01-29 18:55 | CT_ITS ---
PROCEDURE: CTA CHEST W/WO CONTRAST 01/29/2025 REASON FOR EXAM: PAIN WIHT DEEP INSPIRATION, RECENT SURGERY TECHNIQUE: Procedure Code: [id number] Modality: CT Procedure: CTA CHEST W/WO CONTRAST Multiplanar Sagittal and Coronal images were obtained. MIPS were utilized. CONTRAST: Isovue 370 VOLUME: 100 mL One or more dose reduction techniques were used (e.g., Automated exposure control, adjustment of the mA and/or kV according to patient size, use of iterative reconstruction technique). RADIATION DOSE SUMMARY: CTDlvol: 9+ 13 mGy DLP: 132 mGycm COMPARISON: None. FINDINGS: The peripheral soft tissues unremarkable. Right posterior fat containing Bochdalek hernia. Degenerative changes of the spine. Normal caliber thoracic aorta. No coronary artery calcifications. The heart is normal in size. Right lower lobe segmental and subsegmental pulmonary artery filling defects. No consolidation, pleural effusion, or pneumothorax. CT/CTA Chest W/WO Contrast IMPRESSION: Right lower lobe segmental and subsegmental pulmonary emboli. No CT evidence of right heart strain. No focal consolidation, pleural effusion, or pneumothorax. Incidental right posterior fat containing Bochdalek hernia. Critical results were communicated to Dr. Potts at 8 p.m.. Reading Location: [facility]
[2025-01-29 18:57] LABS: Hematocrit 35.7 % (37-47); Hemoglobin 12.0 g/dL (12.0-15.0); Immature Granulocytes Count 0.110 X10^3/uL (0.0-0.0); Mean Corp Hgb Conc 33.6 g/dL (32-36); Mean Corpuscular Volume 91.1 fL (81-99); Mean Platelet Vol. 9.9 fl (6.2-12.0); NRBC Flagged by Analyzer 0 % (0-5); Platelet Count 324 K/mm3 (150-450); RBC Distribution Width CV 13.0 % (11.6-14.6); RBC Distribution Width SD 42.5 fl (35.1-43.9); Red Blood Count 3.92 M/mm3 (4.2-5.4); White Blood Count 10.8 K/mm3 (4.4-11.0)
[2025-01-29 19:31] LABS: Troponin T High Sensitivity 13 ng/L (<=14)
[2025-01-29 19:33] LABS: AST(SGOT) 17 U/L (<=31); Alanine Aminotransfer ALT/SGPT 22 U/L (<=34); Albumin, Serum 3.9 g/dL (3.5-5.0); Alkaline Phosphatase 76 U/L (35-104); Anion Gap 16 (7-18); BUN 14 mg/dL (4-19); BUN/Creat Ratio 14.8 RATIO (10-20); Calcium,Total 8.9 mg/dL (7.6-11.0); Carbon Dioxide 22.2 mmol/L (20.0-29.0); Chloride 101 mmol/L (96-106); Estimated Creatinine Clearance 72.32 ml/min (50-250); Globulin 3.0 g/dL (2.2-4.2); Glucose 100 mg/dL (70-99); Lipase 67 U/L (13-75); Potassium 3.4 mmol/L (3.5-5.1)
[2025-01-29] MEDS: HYDROcodone Bitartrate/Apap 5/325 Tablet PO (21:16)
[2025-01-29 21:23] VITALS: BP 137/75; PULSE 75; RESP 18; O2SAT 100
[2025-01-29 21:45] LABS: Troponin T High Sens 2 HR 14 ng/L (<=14)
[2025-01-29 21:55] VITALS: O2SAT 100
--- NOTE | 2025-01-29 22:53 | EX.ED.DYSGE1 ---
HPI History of Present Illness Chief Complaint: Back Narrative Narrative: Patient is a 54-year-old female with past medical history of migraines, depression, anxiety, hypothyroidism, PVCs who presented to the emergency department the chief complaint of right-sided rib/chest pain. She states that when she takes a deep breath this is worse. Patient notes that she had AVM surgery on January 18 at [facility]. Patient denies any history of blood clots denies any recent travel history. She states that when her pain is exacerbated this makes her short of breath. [facility] Medical History AVM (arteriovenous malformation) brain Thyroid nodule Heart valve problem Thyroid disease Hearing problem Frequent headaches Goiter History of gallstones Carpal tunnel syndrome Back problem Arthritis Allergies Thyromegaly Vitamin D deficiency Obesity Hx of migraines Lymphocytic thyroiditis (~06/25/18) Depression with anxiety Hypothyroidism Multinodular goiter Home Medications ?Medication ?Instructions ?Recorded ?Last Taken ?Type multivitamin 1 cap PO DAILY supplement 06/13/18 Unknown History thyroid (pork) 180 mg tablet 120 mg PO DAILY thyroid 07/29/21 Unknown History ([place] Thyroid) ibuprofen 600 mg tablet 600 mg PO Q6H PRN fever or pain 12/25/21 Unknown Rx #20 tabs celecoxib 200 mg capsule 200 mg PO QDAY health 08/30/24 Unknown History famotidine 40 mg tablet 40 mg PO QHS Acid reflux 08/30/24 Unknown History pantoprazole 40 mg tablet,delayed 40 mg PO QDAY GERD 08/30/24 Unknown History release sertraline 50 mg tablet 100 mg PO DAILY depression 08/30/24 Unknown History Allergy/AdvReac Type Severity Reaction Status Date / Time escitalopram (From Lexapro) Allergy Intermediate twitching/nervous Verified 01/29/25 15:48 feeling propranolol AdvReac Nausea Verified 01/29/25 15:48 Family History Grandmother Cancer Throat cancer Heart disease Thyroid disorder Grandfather Cancer Lung cancer Stomach cancer Mother Heart disease Thyroid disorder Myocardial infarction Hypertension Father Diabetes High cholesterol Other Alcohol abuse Surgical History S/P fine needle aspiration (~06/25/18) history ORIF right ankle History of tubal ligation History of tonsillectomy History of laparoscopic cholecystectomy Social History Smoking Status: Never smoker alcohol intake: current alcohol intake frequency: 0-2 drinks per day substance use type: does not use ROS ROS ED ROS Narrative Constitutional: Denies any fevers, chills, headache Eyes: Denies double vision Cardiovascular: Complains of right sided chest discomfort as noted above Respiratory: Complains of shortness of breath with pain exacerbation Abdomen: Denies any abdominal pain nausea vomit diarrhea : Denies urinary symptoms Neurological: Denies any numbness, weakness, tingling Musculoskeletal: Complains of right sided rib pain Skin: Denies any rashes or lesions EXAM Physical Exam Narrative Exam Narrative: General: Patient was sitting in chair in the hallway did not appear to be in acute distress Head: Atraumatic, normocephalic Eyes: PERRL bilaterally, EOMI bilaterally, no conjunctival injection noted Neck: Soft, supple, trachea midline Cardiovascular: Regular rate and rhythm Respiratory: Clear to auscultation bilaterally Abdomen: Soft, nondistended, nontender to palpation Extremities: +5/5 strength noted in the bilateral upper and lower extremity Neurological: Patient is following commands knew that she was at [facility] the year is 2024 Skin: Warm, dry, intact no rashes or lesions noted Const Vital Signs: 01/29/25 15:47 01/29/25 21:23 01/29/25 23:25 Temperature 99.2 F H Temperature Source Temporal Pulse Rate 78 75 73 Respiratory Rate 18 18 15 Blood Pressure 132/80 H 137/75 H Blood Pressure Mean 97 95 Pulse Ox 100 100 100 Oxygen Delivery Method Room Air Room Air 01/29/25 23:50 Temperature 99.2 F H Temperature Source Pulse Rate 73 Respiratory Rate 15 Blood Pressure 137/75 H Blood Pressure Mean 95 Pulse Ox 100 Oxygen Delivery Method MDM MDM MDM Narrative Medical decision making narrative: Patient is a 54-year-old female who presented to the emergency department with a chief complaint of right sided rib/chest pain. On the differential diagnose includes but not limited to ACS, pneumonia, pneumothorax, pulmonary embolism. Once workup is obtained and reviewed she will be reevaluated. Patient CBC reviewed showed no evidence of leukocytosis white blood count normal at 10.8, hemoglobin 12, platelet count was noted be 324. Patient sodium was 138, potassium was 3.4, creatinine normal at 0.95. Patient troponin is 13 with a delta troponin of 14 EKG reviewed showed sinus rhythm with a rate of 71 bpm W[place] 150. Patient's lipase normal at 67. Patient CTA of the chest was reviewed which showed right lower lobe segmental and subsegmental pulmonary emboli no evidence of right heart strain no focal consolidation pleural effusion or pneumothorax. At this point time will reach out to neurosurgery at [facility] with discussion of anticoagulation given her recent brain surgery. Reach out to [facility] and they stated that I spoke with neurosurgeon Dr. Gomez who did the patient's surgery and they are recommending direct admission to [facility] with low dose neuro scale heparin no bolus. I reached out to pharmacy and we do not have this. I reached back out to them and given the patient is being transferred down there they were okay with holding off before starting the heparin. I discussed this plan with the patient she was agreeable this plan all question concerns answered. Lab Data Labs: Laboratory Results - last 24 hr 01/29/25 01/29/25 18:47 21:00 WBC 10.8 RBC 3.92 L Hgb 12.0 Hct 35.7 L MCV 91.1 MCH 30.6 MCHC 33.6 RDW Std Deviation 42.5 RDW Coeff of Tiera 13.0 Plt Count 324 MPV 9.9 Immature Gran % (Auto) 1.000 H Neut % (Auto) 65.6 Lymph % (Auto) 23.5 [place] % (Auto) 8.9 Eos % (Auto) 0.7 Baso % (Auto) 0.3 Absolute Neuts (auto) 7.1 Absolute Lymphs (auto) 2.54 Nucleated RBC % 0 Sodium 138 Potassium 3.4 L Chloride 101 Carbon Dioxide 22.2 Anion Gap 16 BUN 14 Creatinine 0.95 Estim Creat Clear Calc 72.32 Est GFR (MDRD) Non-Af 71 BUN/Creatinine Ratio 14.8 Glucose 100 H Calcium 8.9 Total Bilirubin 0.39 AST 17 ALT 22 Alkaline Phosphatase 76 Troponin T High Sens 13 D Troponin T Hi Sens 2 Hr 14 Total Protein 6.9 Albumin 3.9 Globulin 3.0 Albumin/Globulin Ratio 1.3 Lipase 67 Radiography Diagnostic Testing: Clinical Impression(s) from Imaging Studies Chest CTA 01/29/25 18:55 IMPRESSION: Right lower lobe segmental and subsegmental pulmonary emboli. No CT evidence of right heart strain. No focal consolidation, pleural effusion, or pneumothorax. Incidental right posterior fat containing Bochdalek hernia. Critical results were communicated to Dr. Potts at 8 p.m.. Reading Location: [facility] Discharge Plan Triage Chief Complaint: Back ED Provider: Ray Potts Dx/Rx/DC Orders Clinical Impression: Pulmonary embolism, Status post brain surgery, AVM (arteriovenous malformation), History of hypothyroidism Prescriptions: No Action multivitamin capsule 1 cap PO DAILY sertraline 50 mg tablet 100 mg PO DAILY Patient Comments: TAKE 1 TABLET BY MOUTH AT THE SAME TIME ONCE DAILY celecoxib 200 mg capsule 200 mg PO QDAY pantoprazole 40 mg tablet,delayed release (DR/EC) 40 mg PO QDAY famotidine 40 mg tablet 40 mg PO QHS [place] Thyroid 180 mg tablet 120 mg PO DAILY Patient Comments: TAKE 1 TABLET BY MOUTH ONCE DAILY IN THE MORNING. WAIT 30 MINUTES TO 1 HOUR BEFORE EATING OR DRINKING ANYTHING OTHER THAN WATER ibuprofen 600 mg tablet 600 mg PO Q6H PRN (Reason: fever or pain) Qty: 20 0RF Primary Care Provider: Abdias Kimbrough NP Referrals: Abdias Kimbrough NP, UNHAIRER-C [Primary Care Provider, Family Practice] Print Language: Wallisian Disposition Disposition: DC/Tx to Another Type of HCF
--- NOTE | 2025-01-29 22:57 | EKG12_ITS ---
Test Reason : DYSRHYTHMIA Blood Pressure : */* mmHG Vent. Rate : 71 BPM Atrial Rate : 71 BPM P-R Int : 150 ms QRS Dur : 102 ms QT Int : 380 ms P-R-T Axes : 49 34 -7 degrees QTcB Int : 412 ms Normal sinus rhythm Cannot rule out Inferior infarct , age undetermined Abnormal ECG Confirmed by Toan Friend ([id number]), editor in chief newspaper GENEVA ENAMORADO ([id number]) on 01/30/2025 10:53:52 AM Also confirmed by Toan Friend ([id number]), editor in chief newspaper GENEVA ENAMORADO ([id number]) on 01/31/2025 10:59:34 AM Referred By: Confirmed By: Toan Friend
[2025-01-29 23:25] VITALS: PULSE 73; RESP 15; O2SAT 100
[2025-01-29 23:50] VITALS: BP 137/75; PULSE 73; RESP 15; TEMP 37.3; O2SAT 100
[2025-01-30] VITALS: BP 137/75; PULSE 73; RESP 15; TEMP 37.3; O2SAT 100
== END 2025-01-29 23:50 | disposition other institution (70) ==
PROVIDERS: Emergency Provider Emergency Medicine; PCP Nurse Practitioner Family; Visit Provider Emergency Medicine
DX: I26.99 Other pulmonary embolism without acute cor pulmonale (principal); Q28.2 Arteriovenous malformation of cerebral vessels
CPT/HCPCS: 71275; 80053; 83690; 84484; 85025; 93005; 96360; 99284; Q9967; A4216